=== PATIENT | male | born 1950 | race Caucasian/White ===

== ENCOUNTER 2017-05-12 14:17 | Observation (INO) ==
[2017-05-12 15:02] LABS: Bilirubin,Urine Moderate (Negative); Blood,Urine Large (Negative); Clarity,Urine Turbid (Clear); Color,Urine Red (Yellow); Glucose,Urine (UA) Normal (Normal); Ketones,Urine Trace mg/dL (Negative); Leukocyte Esterase,Urine Small (Negative); Nitrite,Urine Negative (Negative); PH,Urine 5.5 pH Units (5.0-8.0); Protein,Urine 100 mg/dL (Neg-Trace); Specific Gravity,Urine 1.019 (1.010-1.025); Urobilinogen,Urine Normal (Normal)
[2017-05-12 15:04] LABS: Bacteria,Urine None Seen per hpf (None-Few); Hyaline Casts,Urine None Seen per lpf (None-Few); RBC,Urine TNTC per hpf (0-3); Squamous Epithelial Cell,Urine Many per lpf (None-Few); WBC,Urine 15-30 per hpf (0-3)
[2017-05-12] MEDS ORDERED: Ketorolac 15 MG/ML VIAL IVP ONE (15:23)
[2017-05-12] MEDS ORDERED: 0.9 % Sodium Chloride 1,000 ML IVC ONE (15:23)
[2017-05-12] MEDS ORDERED: Ondansetron 4 MG/2 ML VIAL IVP ONE ×2 (15:24→17:57)
[2017-05-12 15:43] LABS: Basophils # 0.1 K/mcL (0.0-0.2); Basophils % 0.4 %; Eosinophils # 0.1 K/mcL (0.0-0.6); Eosinophils % 1.1 %; Hematocrit 45.7 % (37.5-50.1); Hemoglobin 15.2 g/dL (12.9-16.9); Immature Granulocytes % 0.4 % (0-4); Lymphocytes # 2.5 K/mcL (0.6-4.6); Lymphocytes % 21.2 %; Mean Corpuscular HGB Conc 33.3 g/dL (31.6-35.5); Mean Corpuscular Hemoglobin 28.7 pg (28.0-33.3); Mean Corpuscular Volume 86.2 fL (83.0-100.0); Mean Platelet Volume 11.4 fL (9.4-12.4); Monocytes # 0.8 K/mcL (0.0-1.3); Monocytes % 6.4 %; Neutrophils # 8.3 K/mcL (1.6-8.9); Nucleated Red Blood Cells 0.2 /100 WBC (0); Platelet Count 182 K/mcL (140-400); Red Cell Distribution Width 12.7 % (11.5-14.5); Segmented Neutrophils % 70.5 %
--- NOTE | 2017-05-12 16:37 | Emergency Department Note ---
Disposition Clinical Impression: Kidney stone on left side Disposition: Admitted As Inpatient Condition: Fair Referrals: Jim Smith MD [Primary Care Provider] - Time of Disposition: 16:55 Abdominal Pain HPI - General Chief Complaint: ED Abdominal Pain Stated Complaint: Kidney Stone Time Seen by Provider: 05/12/17 15:01 Source: patient Mode of arrival: ambulatory Limitations: no limitations Nursing Notes Reviewed: Yes Vital Signs Reviewed: Yes - History of Present Illness HPI Narrative: 67-year-old male presents to the emergency department with left flank pain. 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 Said the right kidney barely is functioning. Patient says that he was having left flank pain approximately a week ago he was seen by his urologist, Dr. Smith who states that he had a x-ray done there and they did notice a left -sided kidney stone thought they could pass on its own. They said the pain increased today where was unbearable was 10 out of 10 pain rating down into his left groin. He did take [place] for pain control said this did not help. Patient says that his urine also is very bright red. Patient otherwise having no complaints including painful urination, fever, chills, nausea, vomiting, headache, blurry vision, neck pain, back pain, chest pain, shortness of breath, abdominal pain, change in bowel movements, weakness. Pain Scale: 5 - Related Data Home Medications Medication Instructions Recorded Confirmed Alfuzosin HCl [Uroxatral] 10 mg PO DAILY 11/03/15 11/03/15 Aspirin 81 mg PO DAILY 11/03/15 11/03/15 Carvedilol 3.125 mg PO BID 11/03/15 11/03/15 Fluticasone Propionate Nasal 1 spr NS DAILY 11/03/15 11/03/15 [Flonase] Furosemide [Lasix] 40 mg PO DAILY 11/03/15 11/03/15 Glimepiride [Amaryl] 1 mg PO DAILY 11/03/15 11/03/15 Lactobacillus Acidophilus 1 each PO DAILY 11/03/15 11/03/15 [Acidophilus] Lipase/Protease/Amylase [Pancreaze 1 each PO TID 11/03/15 11/03/15 10,500 Unit Cap] OxyCODONE/APAP 5/325 [Percocet 1 each PO Q6HR PRN 11/03/15 11/03/15 5/325 MG] Pantoprazole Sodium [Protonix] 40 mg PO DAILY 11/03/15 11/03/15 Rivaroxaban [Xarelto] 15 mg PO QPM 11/03/15 11/03/15 Simvastatin [Zocor] 40 mg PO HS 11/03/15 11/03/15 Spironolactone [Aldactone] 25 mg PO BID 11/03/15 11/03/15 Previous Rx's Medication Instructions Recorded OxyCODONE/APAP 5/325 [Percocet 1 each PO Q6HR PRN #30 tablet 11/03/15 5/325 MG] Albuterol Sulfate [Albuterol 2 puff IH QID #1 inhaler 11/03/16 Inhaler] Benzonatate [Tessalon] 200 mg PO TID PRN #20 capsule 11/03/16 Doxycycline 100 mg PO BID #14 capsule 11/03/16 Allergies Allergy/AdvReac Type Severity Reaction Status Date / Time cephalexin [From Keflex] Allergy Hives Verified 11/03/16 11:39 Penicillins [PCN] Allergy Hives Verified 11/03/16 11:38 Sulfa (Sulfonamide Allergy Hives Verified 11/03/16 11:39 Antibiotics) Review of Systems: 10 point review of systems done and negative unless otherwise stated in the history of present illness. All systems ED: reviewed and negative except as stated. Review of Systems: As Per HPI Abdominal Pain PMH - Past Medical History Medical history: Reports: atrial fibrillation Psychiatric history: Reports: no psych history - Social History Smoking status: Never smoker Alcohol use: Reports: none Drug use: Reports: unknown Physical Exam - General Limitations: no limitations General appearance: alert, in no apparent distress - Head Head exam: atraumatic, normocephalic, normal inspection - Eye Eye exam: Present: normal appearance, PERRL, EOMI - ENT ENT exam: normal exam - Neck Neck exam: Present: normal inspection, full ROM, trachea midline - Chest Chest inspection: Present: normal inspection, symmetric chest wall rise - Respiratory Respiratory exam: Present: normal lung sounds bilaterally - Cardiovascular Cardiovascular exam: Present: regular rate, normal rhythm, normal heart sounds - Abdominal Exam Abdominal exam: Present: soft, Non-Tender. Absent: tenderness, distention, guarding, rebound, rigidity - Extremities Exam Extremities exam: Present: normal inspection, full ROM. Absent: tenderness, pedal edema - Back Exam Back exam: Present: normal inspection, full ROM, CVA tenderness (L). Absent: tenderness, CVA tenderness (R) - Neurological Exam Neurological exam: Present: alert, oriented X3 - Skin Skin exam: Present: warm, dry, intact, normal color Course Course Narrative: 67-year-old male presents to the emergency department complaining of left flank pain. He does have history of kidney stones. He has an atrophic right kidney Nicol the left kidney. Patient states that the pain is increased we will give Toradol and Zofran for pain control as well as IV fluids. We will get CT of his abdomen and pelvis without contrast to see the size of the stone. Order basic labs including CBC and BMP as well as urinalysis. Most likely disposition will be admission and consultation urology. - Consultations Consultation #1: Spoke with the on-call urologist Dr. Watson who agreed to come and see the patient and recommended admission to the hospital service and consultation with them. He had no further recommendations. Time: 16:45 Consultation #2: Spoke with the hospitalist Dr. Prado who agreed to admit the patient to their service and consult urology. He had no further recommendations. Time: 16:54 Vital Signs Temperature 98.2 F 05/12/17 14:31 Pulse Rate 107 05/12/17 14:31 Respiratory Rate 18 05/12/17 14:31 Blood Pressure 157/81 05/12/17 14:31 O2 Sat by Pulse Oximetry 98 05/12/17 14:31 Temperature 98.2 F 05/12/17 14:31 Pulse Rate 107 05/12/17 14:31 Respiratory Rate 18 05/12/17 14:31 Blood Pressure 157/81 05/12/17 14:31 O2 Sat by Pulse Oximetry 98 05/12/17 14:31 Oxygen Delivery Oxygen Delivery Room Air Abdominal Pain - MDM Narrative Medical decision making narrative: 67-year-old male presented emergency department with left-sided flank pain this was an obstructing kidney stone based on CT due to his right kidney nonfunctioning we felt that admission and urology consultation was warranted spoke with Dr. Grimm agreed to come and see the patient in the who did recommend admission. His mother most likely can take patient to surgery today. Urine did show blood in it otherwise there are no acute abnormalities. Patient's bladder was empty so there is worried about obstruction. Patient's pain is under control with the Toradol and nausea is under control with Zofran. Patient is admitted to the hospitalist service in stable condition. Abdomen/Pelvis CT 05/12/17 15:24 IMPRESSION: 1. 0.5 cm x 0.4 cm x 0.5 cm obstructing calculus in the proximal to mid left ureter, resulting in minimal left hydroureteronephrosis. The finding is likely acute given associated left perinephric and periureteral inflammatory stranding. 2. At least 2 calculi in the distal right ureter, measuring approximately 0.7 cm x 0.5 cm x 0.5 cm and 0.7 cm x 0.2 cm x 0.3 cm. There is new severe right hydronephrosis and mild to moderate right hydroureter, but chronic obstruction is suspected given moderate to severe right renal atrophy and lack of associated right perinephric or periureteral stranding. D/ / Laci Garcia MD / Laci Garcia MD Interpreting Provider: Laci Garcia MD - Medical Records Medical records reviewed: Yes I reviewed the patient's medical records. - Lab Data Lab results reviewed: Yes I reviewed the patient's lab results. Result diagrams: 05/12/17 15:32 Lab Results 05/12/17 05/12/17 05/12/17 Range/Units 14:41 15:32 15:32 WBC 11.8 H (4.3-11.1) K/mcL RBC 5.30 (4.19-5.50) M/mcL Hgb 15.2 (12.9-16.9) g/dL Hct 45.7 (37.5-50.1) % MCV 86.2 (83.0-100.0) fL MCH 28.7 (28.0-33.3) pg MCHC 33.3 (31.6-35.5) g/dL RDW 12.7 (11.5-14.5) % Plt Count 182 (140-400) K/mcL MPV 11.4 (9.4-12.4) fL Immature Gran % 0.4 (0-4) % Seg Neutrophils % 70.5 % Lymphocytes % 21.2 % Monocytes % 6.4 % Eosinophils % 1.1 % Basophils % 0.4 % Neutrophils # 8.3 (1.6-8.9) K/mcL Lymphocytes # 2.5 (0.6-4.6) K/mcL Monocytes # 0.8 (0.0-1.3) K/mcL Eosinophils # 0.1 (0.0-0.6) K/mcL Basophils # 0.1 (0.0-0.2) K/mcL Nucleated RBCs/100 WBC 0.2 H (0) /100 WBC Lactic Acid 1.7 (0.5-2.2) mmol/L Urine Color Red A (Yellow) Urine Clarity Turbid A (Clear) Urine pH 5.5 (5.0-8.0) pH Units Ur Specific [place] 1.019 (1.010-1.025) Urine Protein 100 H (Neg-Trace) mg/dL Urine Glucose (UA) Normal (Normal) mg/dL Urine Ketones Trace H (Negative) mg/dL Urine Blood Large H (Negative) Urine Nitrite Negative (Negative) Urine Bilirubin Moderate H (Negative) Urine Urobilinogen Normal (Normal) mg/dL Ur Leukocyte Esterase Small H (Negative) Urine Microscopic RBC TNTC H (0-3) per hpf Urine Microscopic WBC 15-30 H (0-3) per hpf Ur Squamous Epith Cells Many H (None-Few) per lpf Urine Bacteria None Seen (None-Few) per hpf Hyaline Casts None Seen (None-Few) per lpf Specimen Rejected 05/12/17 Range/Units 15:32 WBC (4.3-11.1) K/mcL RBC (4.19-5.50) M/mcL Hgb (12.9-16.9) g/dL Hct (37.5-50.1) % MCV (83.0-100.0) fL MCH (28.0-33.3) pg MCHC (31.6-35.5) g/dL RDW (11.5-14.5) % Plt Count (140-400) K/mcL MPV (9.4-12.4) fL Immature Gran % (0-4) % Seg Neutrophils % % Lymphocytes % % Monocytes % % Eosinophils % % Basophils % % Neutrophils # (1.6-8.9) K/mcL Lymphocytes # (0.6-4.6) K/mcL Monocytes # (0.0-1.3) K/mcL Eosinophils # (0.0-0.6) K/mcL Basophils # (0.0-0.2) K/mcL Nucleated RBCs/100 WBC (0) /100 WBC Lactic Acid (0.5-2.2) mmol/L Urine Color (Yellow) Urine Clarity (Clear) Urine pH (5.0-8.0) pH Units Ur Specific [place] (1.010-1.025) Urine Protein (Neg-Trace) mg/dL Urine Glucose (UA) (Normal) mg/dL Urine Ketones (Negative) mg/dL Urine Blood (Negative) Urine Nitrite (Negative) Urine Bilirubin (Negative) Urine Urobilinogen (Normal) mg/dL Ur Leukocyte Esterase (Negative) Urine Microscopic RBC (0-3) per hpf Urine Microscopic WBC (0-3) per hpf Ur Squamous Epith Cells (None-Few) per lpf Urine Bacteria (None-Few) per hpf Hyaline Casts (None-Few) per lpf Specimen Rejected Hemolyzed - Radiology Data Radiology results reviewed: Yes I reviewed the patient's radiology results.
--- NOTE | 2017-05-12 16:56 | Urology - Consult Note ---
Date of Encounter: 05/12/17 Time of Encounter: 16:54 - Assessment and Plan (1) Left ureteral stone Current Visit: Yes Status: Acute Assessment and plan: Patient was solitary left kidney and obstructing stone in the left side. We will plan on taking the patient urgently to the operating room for cystoscopy and left ureteral stent placement. Patient's BMP pending at this time. (2) Hydronephrosis Current Visit: Yes Status: Acute Assessment and plan: Secondary to obstructing stone. We will plan on stenting patient in the operating room today. Qualifiers: Hydronephrosis type: with ureteral calculous obstruction Qualified Code(s) : N13.2 - Hydronephrosis with renal and ureteral calculous obstruction Urology CN:HPI Consult date: 05/12/17 Reason for consult Urology: Hydronephrosis Requesting physician: Horace Prado History of present illness: Tutu is a 67-year-old male with a history of known problems of kidney stones. Patient has a nonfunctioning right kidney. He presented to the emergency department today secondary to severe left-sided flank pain. Patient also with minimal urine output today. He was found on CT scan to have a left proximal ureteral 7 mm stone with some proximal hydronephrosis. Laboratory values are pending at this time. No fevers. Positive nausea without vomiting. Patient states he has not felt like eating. Past Med Surg Social Fam HX - Past Medical History Medical history: atrial fibrillation Psychiatric history: no psych history - Past Surgical History Surgical History: colectomy, orthopedic, other - Social History Smoking Status: Never smoker Smokeless Tobacco Status: No Alcohol use: none Drug use: unknown Medications and Allergies Alfuzosin HCl [Uroxatral] 10 mg PO DAILY 11/03/15 [History] Aspirin 81 mg PO DAILY 11/03/15 [History] Carvedilol 3.125 mg PO BID 11/03/15 [History] Fluticasone Propionate Nasal [Flonase] 1 spr NS DAILY 11/03/15 [History] Furosemide [Lasix] 40 mg PO DAILY 11/03/15 [History] Glimepiride [Amaryl] 1 mg PO DAILY 11/03/15 [History] Lactobacillus Acidophilus [Acidophilus] 1 each PO DAILY 11/03/15 [History] Lipase/Protease/Amylase [Pancrevilma Dr 10,500 Unit Cap] 1 each PO TID 11/03/15 [ History] OxyCODONE/APAP 5/325 [Percocet 5/325 MG] 1 each PO Q6HR PRN 11/03/15 [History] OxyCODONE/APAP 5/325 [Percocet 5/325 MG] 1 each PO Q6HR PRN #30 tablet 11/03/15 [Rx] Pantoprazole Sodium [Protonix] 40 mg PO DAILY 11/03/15 [History] Rivaroxaban [Xarelto] 15 mg PO QPM 11/03/15 [History] Simvastatin [Zocor] 40 mg PO HS 11/03/15 [History] Spironolactone [Aldactone] 25 mg PO BID 11/03/15 [History] Albuterol Sulfate [Albuterol Inhaler] 2 puff IH QID #1 inhaler 11/03/16 [Rx] Benzonatate [Tessalon] 200 mg PO TID PRN #20 capsule 11/03/16 [Rx] Doxycycline 100 mg PO BID #14 capsule 11/03/16 [Rx] 3 Allergy/AdvReac Type Severity Reaction Status Date / Time cephalexin [From Keflex] Allergy Hives Verified 11/03/16 11:39 Penicillins [PCN] Allergy Hives Verified 11/03/16 11:38 Sulfa (Sulfonamide Allergy Hives Verified 11/03/16 11:39 Antibiotics) Review of Systems - Constitutional no chills, no fever(s) - EENT Nose, mouth and throat: no dizziness, no throat swelling - Cardiovascular no chest pain, no dyspnea - Respiratory no cough, no dyspnea - Gastrointestinal abdominal pain - Genitourinary as per HPI - Musculoskeletal back pain, no muscle weakness, no numbness - Integumentary no erythema, no rash - Neurological no confusion, no weakness Exam Initial Vital Signs Temp Pulse Resp BP Pulse Ox 98.2 F 107 18 157/81 98 05/12/17 14:31 05/12/17 14:31 05/12/17 14:31 05/12/17 14:31 05/12/17 14:31 General/Neuological: alert and oriented x 3 Eyes: normal pupils, non-icteric Neck: no lymphadenopathy noted, supple to touch ABD: Morbidly obese soft, nontender, no masses palpated, good bowel sounds Back: no pain on percussion bilaterally Skin: no rashes noted Musculoskeletal: normal gait, FROMx4 - General physical appearance Present: well developed, well nourished Urology Results - Labs 05/12/17 15:32 Abnormal lab results WBC 11.8 K/mcL (4.3-11.1) H 05/12/17 15:32 Nucleated RBCs/100 WBC 0.2 /100 WBC (0) H 05/12/17 15:32 Urine Color Red (Yellow) A 05/12/17 14:41 Urine Clarity Turbid (Clear) A 05/12/17 14:41 Urine Protein 100 mg/dL (Neg-Trace) H 05/12/17 14:41 Urine Ketones Trace mg/dL (Negative) H 05/12/17 14:41 Urine Blood Large (Negative) H 05/12/17 14:41 Urine Bilirubin Moderate (Negative) H 05/12/17 14:41 Ur Leukocyte Esterase Small (Negative) H 05/12/17 14:41 Urine Microscopic RBC TNTC per hpf (0-3) H 05/12/17 14:41 Urine Microscopic WBC 15-30 per hpf (0-3) H 05/12/17 14:41 Ur Squamous Epith Cells Many per lpf (None-Few) H 05/12/17 14:41 All other labs normal. - Imaging CT scan - abdomen: image reviewed CT scan - pelvis: image reviewed Consult Discharge Plan - Plan Referrals: Jim Smith MD [Primary Care Provider] -
--- NOTE | 2017-05-12 16:56 | Anesthesia Evaluation PreOp ---
Date of Encounter: 05/12/17 Time of Encounter: 16:54 - Past History Planned Operation: Cystoscopy Cardiac History: CHF, HTN, Hyperlipidemia, Arrhythmia (paroxysmal A-Fib) Pulmonary History: Former smoker (quit 11/2012, smoked for 40 years), Asthma [employer] History: Denies Any Significant HX Other Medical History: Renal (kidney stones, has one functioning kidney (left)) , Diabetes Type II, GERD Anesthesia History: No Prior Anesthetic Complications, Past Anesthesia Alcohol Use: none Drug use: unknown Medications and Allergies Aspirin 81 mg PO DAILY 11/03/15 [History] Carvedilol 3.125 mg PO BID 11/03/15 [History] Fluticasone Propionate Nasal [Flonase] 1 spr NS DAILY 11/03/15 [History] Furosemide [Lasix] 40 mg PO DAILY 11/03/15 [History] Glimepiride [Amaryl] 1 mg PO DAILY 11/03/15 [History] OxyCODONE/APAP 5/325 [Percocet 5/325 MG] 1 each PO Q6HR PRN 11/03/15 [History] Pantoprazole Sodium [Protonix] 40 mg PO DAILY 11/03/15 [History] Rivaroxaban [Xarelto] 15 mg PO QPM 11/03/15 [History] Simvastatin [Zocor] 40 mg PO HS 11/03/15 [History] Spironolactone [Aldactone] 25 mg PO BID 11/03/15 [History] Betamethasone Bernarda 0.1% Crm [Valisone 0.1%] 1 appl TP DAILY 05/12/17 [History] Mupirocin [Bactroban Oint] 1 appl TP TID 05/12/17 [History] Tamsulosin [Flomax] 0.4 mg PO DAILY 05/12/17 [History] Triamcinolone Acetonide 1 appl TP BID 05/12/17 [History] 3 Allergy/AdvReac Type Severity Reaction Status Date / Time cephalexin [From Keflex] Allergy Hives Verified 11/03/16 11:39 Penicillins [PCN] Allergy Hives Verified 11/03/16 11:38 Sulfa (Sulfonamide Allergy Hives Verified 11/03/16 11:39 Antibiotics) - Meds/Allergy Pre-op Review Medications Reviewed: Yes Allergies Reviewed: Yes Beta Blockers on Current Med List: Yes If Beta Blockers taken, Date/Time (Last Dose taken): 05/11/2017 at 1900 Anesthesia Results - Labs 05/12/17 15:32 05/12/17 16:50 - Imaging EKG: report reviewed (10/25/2015 SINUS RHYTHM WITH FIRST DEGREE AV BLOCK MODERATE VOLTAGE CRITERIA FOR LVH, CONSIDER NORMAL VARIANT) Additional studies: 07/21/2014 Echo Impressions: LVEF 45-50%. There is evidence of mild diastolic dysfunction of the left ventricle. Moderately enlarged left atrial size. Normal right atrial size. Normal right ventricular size and function. No significant valvular dysfunction. No significant TR gradient. IVC not well visualized for assessment of pulmonary hypertension. 12/24/2012 CORONARY ANGIOGRAPHY Indications: Unstable Angina, Chest Pain Impressions: Coronary arteries are angiographically normal. Recommendations: Optimal medical therapy of patient's disease. Aggressive risk factor modification. Anesthesia Exam Vital Signs/O2 Sat, Most Current Temp Pulse Resp BP Pulse Ox 98.2 F 107 18 157/81 98 05/12/17 14:31 05/12/17 14:31 05/12/17 14:31 05/12/17 14:31 05/12/17 14:31 Height: 5'8''/1.73 m Weight: 346 lbs/157 kg NPO (# of Hours): 8 Pain Scale: 6 Pain Scale Used: Numeric (1 - 10) - HEENT Pupil (Motor): EOMI Mallampati: III Teeth: Missing, Poor dentition Oral Opening: Greater than 3 - [employer] LOC: Oriented [employer] Motor: Normal RUE, Normal LUE, Normal RLE, Normal LLE, Normal Face [employer] Sensory: Normal: RUE, LUE, Face, Deficit: RLE, LLE - Cardiac Rhythm: Regular Murmur: None - Pulmonary Breath Sounds: bilateral Clear Respiratory Effort: Symmetrical Anesthesia Assess/Plan ASA Score: 3 Modified Dena Scale for Level of Consciousness: Cooperative, oriented, and tranquil Anesthetic Plan: General Monitoring Plan: Standard Monitors Recovery Plan: PACU
[2017-05-12 17:15] LABS: Albumin 3.8 g/dL (3.5-5.7); Albumin/Globulin Ratio 1.2 (1.1-2.2); Bilirubin,Direct 0.2 mg/dL (0.0-0.2); Bilirubin,Indirect 1.2 mg/dL (0.0-1.2); Bilirubin,Total 1.4 mg/dL (0.3-1.0); Calcium 8.9 mg/dL (8.6-10.3); Globulin 3.1 g/dL (2.4-3.5); Total Protein 6.9 g/dL (6.4-8.9)
[2017-05-12] MEDS ORDERED: *HR* FentaNYL (PF) 100 MCG/2 ML VIAL ONE (17:24)
[2017-05-12] MEDS ORDERED: Lidocaine -MPF 2% 2 ML VIAL ONE (17:24)
[2017-05-12] MEDS ORDERED: *HR* Propofol 200 MG/20 ML VIAL IVP ONE ×2 (17:24→17:36)
[2017-05-12] MEDS ORDERED: Clindamycin 900 MG/50 ML 900 MG/50 ML IV.SOLN IVPB ONE (17:27)
[2017-05-12] MEDS ORDERED: Dexamethasone 4 MG/ML VIAL ONE (17:54)
[2017-05-12] MEDS ORDERED: *HR* Labetalol 100 MG/20 ML MDV IVP PRN (17:57)
[2017-05-12] MEDS ORDERED: MORPHINE SUL Oral CONC 10 MG/0.5 ML ORAL.SYG SL PRN (17:57)
--- NOTE | 2017-05-12 18:01 | Operative Note ---
Date of procedure: 05/12/17 Pre-op diagnosis: left ureteral stone Post-op diagnosis: same Procedure: Cystoscopy and left 6 x 26 cm ureteral stent placement Anesthesia: GETA Surgeon: Ken Watson Was there an financial assistant present: No Estimated blood loss (cc): 0 Specimen: None Condition: stable Disposition: PACU Procedure in Detail: The patient was prepped and draped in normal sterile fashion after being placed in the lithotomy position. I then inserted the cystoscope into the patient's bladder. I then cannulated the left ureter using a sensor wire. This was advanced to the kidney using fluoroscopy. I then placed a 6 x 26 and meter ureteral stent with good curl seen in the kidney and the bladder. The bladder was drained and the procedure was ended.
--- NOTE | 2017-05-12 18:50 | Anesthesia Evaluation Post Op ---
Date of Encounter: 05/12/17 Time of Encounter: 18:49 - Vital Signs Vital Signs: Vital Signs/O2 Sat, Most Current Temp Pulse Resp BP Pulse Ox 97.5 F L 76 12 136/94 94 05/12/17 18:33 05/12/17 18:33 05/12/17 18:33 05/12/17 18:33 05/12/17 18:33 - Lungs Lungs: Clear Ascult./Percussion - Airway Airway: Non-obstructed - Cardiovascular Regular Rate - Mental Status Mental Status: Alert & Oriented, Answers Appropriately - Pain Pain Scale: 2 Pain Scale used: Numeric (1 - 10) - Nausea Vomiting Nausea Vomiting: Not Present - Hydration Hydration: Ice chips, Has not voided - Discharge PostOp Status: Transfer Patient to floor
[2017-05-12] MEDS ORDERED: *HR* OxyCODONE/APAP 5/325 TABLET PO PRN (19:34)
--- NOTE | 2017-05-12 19:43 | Internal Med History&Physical ---
Date of Encounter: 05/12/17 Time of Encounter: 19:35 Assessment and Plan (1) Left ureteral stone Current visit: Yes Status: Acute Continue home oral medications and check AccuChecks qACHS (2) Atrial fibrillation Current visit: No Status: Chronic Rate controlled with BB Continue Xarelto I spoke with Urology and it's safe to resume now Qualifiers: Atrial fibrillation type: unspecified Qualified Code(s): I48.91 - Unspecified atrial fibrillation (3) Diabetes mellitus Current visit: Yes Status: Acute DM-@ Continue home oral antihyperglycemics and check accuchecks qACHS Qualifiers: Diabetes mellitus type: type 2 Diabetes mellitus assisted insulin use: without assisted use Diabetes mellitus complication status: with other specified complication Qualified Code(s): E11.69 - Type 2 diabetes mellitus with other specified complication Internal Medicine - H&P: HPI Chief complaint: left flank pain Admitted From: Emergency Dept Plans for Post Hospital Care: Home History of present illness: The patient is a 67 yr old man with a history of multiple kidney stones and a solitary kidney who presented in the ER with left flank pain which has been going on for approximately one week. He was seen by his urologist, Dr. Smith who did an Xray which noted a left-sided kidney stone which he thought could pass on its own. However, the pain was more intense today and his urine output was decreased and he had hematuria prompting him to come to the ER. Because of his solitary kidney and hydronephrosis noted on imaging urology was called and Dr. Watson saw the patient in the ER and urgently performed a cystoscopy with left ureteral stent placement. He tolerated the procedure well and his pain is controlled with Morphine and [place]. He's hemodynamically stable. Past Med Surg Social Fam HX - Past Medical History Medical history: atrial fibrillation Psychiatric history: no psych history - Past Surgical History Surgical History: colectomy, orthopedic, other - Social History Smoking Status: Never smoker Smokeless Tobacco Status: No Alcohol use: none Drug use: unknown Internal Medicine - H&P: Meds Aspirin 81 mg PO DAILY 11/03/15 [History] Carvedilol 3.125 mg PO BID 11/03/15 [History] Fluticasone Propionate Nasal [Flonase] 2 spray NS DAILY 11/03/15 [History] Furosemide [Lasix] 40 mg PO DAILY 11/03/15 [History] Glimepiride [Amaryl] 2 mg PO BID 11/03/15 [History] OxyCODONE/APAP 5/325 [Percocet 5/325 MG] 1 each PO Q6HR PRN 11/03/15 [History] Pantoprazole Sodium [Protonix] 40 mg PO DAILY 11/03/15 [History] Rivaroxaban [Xarelto] 15 mg PO QPM 11/03/15 [History] Simvastatin [Zocor] 40 mg PO HS 11/03/15 [History] Spironolactone [Aldactone] 25 mg PO BID 11/03/15 [History] Betamethasone Bernarda 0.1% Crm [Valisone 0.1%] 1 appl TP DAILY 05/12/17 [History] Mupirocin [Bactroban Oint] 1 appl TP TID 05/12/17 [History] Tamsulosin [Flomax] 0.4 mg PO DAILY 05/12/17 [History] Triamcinolone Acetonide 1 appl TP BID 05/12/17 [History] 3 Allergy/AdvReac Type Severity Reaction Status Date / Time cephalexin [From Keflex] Allergy Hives Verified 11/03/16 11:39 Penicillins [PCN] Allergy Hives Verified 11/03/16 11:38 Sulfa (Sulfonamide Allergy Hives Verified 11/03/16 11:39 Antibiotics) All Systems PM: A 10-system review of systems was performed and is negative for pertinent findings except as documented above in the HPI. - Constitutional Constitutional: chills, no fever(s), no night sweats - EENT Eyes: no change in vision, no discharge, no pain, no photophobia Ears: no ear discharge, no ear pain, no tinnitus Nose, mouth and throat: no bleeding gums, no dry mouth, no dysphagia, no nasal discharge, no nasal obstruction, no neck pain, no sore throat - Cardiovascular Cardiovascular ROS IM: no chest pain, no diaphoresis, no dyspnea, no lightheadedness, no palpitations, no syncope - Respiratory Respiratory: no cough, no dyspnea, no wheezing, no excessive phlegm production - Gastrointestinal Gastrointestinal: no abdominal pain, no diarrhea, no hematemesis, no hematochezia, no melena, no nausea, no vomiting - Genitourinary Genitourinary ROS male: as per HPI, difficulty urinating, hematuria - Musculoskeletal Musculoskeletal ROS IM: back pain, no numbness, no tingling - Integumentary Integumentary IM: no rash, no unusual bruising - Neurological Neurological ROS: no confusion, no convulsions, no focal weakness, no numbness, no tingling, no tremor(s) - Psychiatric Psychiatric: no anhedonia, no auditory hallucinations, no hallucinations, no panic attacks - Hematologic/Lymphatic Hematologic/Lymphatic: no easy bruising - Constitutional Vitals: Temp Pulse Resp BP Pulse Ox 98.0 F 78 19 142/61 94 05/12/17 19:13 05/12/17 19:13 05/12/17 19:13 05/12/17 19:13 05/12/17 19:13 General appearance: Present: mild distress, A&O X 3 - Head Head exam: Present: atraumatic, normocephalic - ENT ENT exam: Present: mucous membranes moist - Neck Neck exam general surgery: Present: supple, trachea midline. Absent: tenderness , thyromegaly - Respiratory Respiratory exam: Present: CTAB. Absent: chest wall tenderness, rales, rhonchi , stridor, wheezes - Cardiovascular Cardiovascular exam: Present: RRR, +S1, +S2 - GI/Abdominal GI/Abdominal exam: Present: normal bowel sounds. Absent: distended, guarding, rigid - Neurological Exam Neurological exam: Present: CN II-XII intact. Absent: no focal deficits, facial droop, speech deficit - Psychiatric Psychiatric exam: Present: normal affect, normal mood Internal Med - H&P Results - Labs CBC & Chem 7: 05/12/17 15:32 05/12/17 16:50 - Impressions ITS Impressions KUB X-Ray 05/12/17 17:45 IMPRESSION: Intraprocedural fluoroscopic spot images as above. See separate procedure report for more information. D/ / Onel Lopez MD / Onel Lopez MD Interpreting Provider: Onel Lopez MD
[2017-05-12] MEDS ORDERED: Naloxone 0.4 MG/ML INJ IVP PRN (19:49)
[2017-05-12] MEDS ORDERED: *HR* Rivaroxaban 15 MG TABLET PO SCH ×2 (20:00→20:30)
[2017-05-12] MEDS ORDERED: Ketorolac 15 MG/ML VIAL IVP PRN (20:24)
[2017-05-12] MEDS ORDERED: *HR* HYDROcodone/Acet 7.5/325 mg TABLET PO PRN (20:25)
[2017-05-12] MEDS ORDERED: *HR* Promethazine 25 MG/ML VIAL IVP PRN (20:27)
[2017-05-12] MEDS ORDERED: 0.9 % Sodium Chloride 1,000 ML IVC SCH (20:30)
[2017-05-12] MEDS ORDERED: NON-FORMULARY MEDICATION 1 EACH EACH (Carvedilol [Carvedilol] 3.125 MG) PO SCH (21:00)
[2017-05-12] MEDS ORDERED: GLIMEPIRIDE 2 MG PO SCH (21:00)
[2017-05-12] MEDS ORDERED: Spironolactone 25 MG TABLET PO SCH (21:00)
[2017-05-12] MEDS: 0.9 % Sodium Chloride 1,000 ML IVC SCH (22:09)
[2017-05-12] MEDS: *HR* HYDROcodone/Acet 5/325 mg TABLET PO PRN (22:18)
[2017-05-12] MEDS: Spironolactone 25 MG TABLET PO SCH (22:19)
[2017-05-12] MEDS: *HR* Glimepiride 2 MG TABLET PO SCH (22:19)
[2017-05-12] MEDS: *HR* Rivaroxaban 15 MG TABLET PO SCH (22:19)
[2017-05-13] MEDS: *HR* OxyCODONE Immed Rel 5 MG TABLET PO PRN ×3 (01:22→20:15)
[2017-05-13 04:47] LABS: Basophils % 0.2 %; Hemoglobin 14.6 g/dL (12.9-16.9); Immature Granulocytes % 0.6 % (0-4); Lymphocytes # 1.4 K/mcL (0.6-4.6); Lymphocytes % 16.4 %; Mean Corpuscular HGB Conc 31.7 g/dL (31.6-35.5); Mean Corpuscular Hemoglobin 27.9 pg (28.0-33.3); Monocytes # 0.3 K/mcL (0.0-1.3); Monocytes % 3.3 %; Platelet Count 169 K/mcL (140-400); Red Blood Count 5.23 M/mcL (4.19-5.50); Red Cell Distribution Width 12.6 % (11.5-14.5); Segmented Neutrophils % 79.5 %
[2017-05-13 05:12] LABS: Calcium 8.9 mg/dL (8.6-10.3); Potassium 5.2 mEq/L (3.5-5.1)
[2017-05-13] MEDS: 0.9 % Sodium Chloride 1,000 ML IVC SCH ×2 (06:10→20:14)
[2017-05-13] MEDS: *HR* HYDROcodone/Acet 5/325 mg TABLET PO PRN ×2 (06:29→15:02)
--- NOTE | 2017-05-13 07:07 | Urology Progress Note ---
Date of Encounter: 05/13/17 Time of Encounter: 07:05 - Assessment and Plan (1) Left ureteral stone Current Visit: Yes Status: Acute Assessment and plan: Status post left ureteral stent. Hematuria expected until stent is removed. Patient's serum creatinine is still slightly elevated and do not recommend to start Pyridium at this time. I will plan on scheduling the patient for left ureteroscopic stone extraction with either or Dr. Smith in the next 2-3 weeks. Patient will receive a phone call from our office regarding the surgery scheduled date. (2) Hydronephrosis Current Visit: Yes Status: Acute Qualifiers: Hydronephrosis type: with ureteral calculous obstruction Qualified Code(s) : N13.2 - Hydronephrosis with renal and ureteral calculous obstruction Progress Note Narrative: Postoperative day 1 from cystoscopy and left ureteral stent placement. Patient feels better. Serum creatinine slightly improved. Patient with some urgency. Patient also with some gross hematuria which is expected with a stent Objective Initial Vital Signs Temp Pulse Resp BP Pulse Ox 98.2 F 107 18 157/81 98 05/12/17 14:31 05/12/17 14:31 05/12/17 14:31 05/12/17 14:31 05/12/17 14:31 - General physical appearance Present: well developed, well nourished - Respiratory Present: normal expansion, normal respiratory effort - Abdomen Present: soft (Morbidly obese). Absent: tender - Integumentary Present: no rash - Musculoskeletal Present: normal posture - Labs 05/13/17 04:27 05/13/17 04:27 Diabetes panel 05/13/17 Range/Units 04:27 Sodium 132 L (136-145) mEq/L Potassium 5.2 H (3.5-5.1) mEq/L Chloride 102 (98-107) mEq/L Carbon Dioxide 22 L (23-29) mEq/L BUN 26 H (8-23) mg/dL Creatinine 1.49 H (0.70-1.30) mg/dL Glucose 367 H (70-105) mg/dL Calcium 8.9 (8.6-10.3) mg/dL Calcium panel 05/13/17 Range/Units 04:27 Calcium 8.9 (8.6-10.3) mg/dL Pituitary panel 05/13/17 Range/Units 04:27 Sodium 132 L (136-145) mEq/L Potassium 5.2 H (3.5-5.1) mEq/L Chloride 102 (98-107) mEq/L Carbon Dioxide 22 L (23-29) mEq/L BUN 26 H (8-23) mg/dL Creatinine 1.49 H (0.70-1.30) mg/dL Glucose 367 H (70-105) mg/dL Calcium 8.9 (8.6-10.3) mg/dL Adrenal panel 05/13/17 Range/Units 04:27 Sodium 132 L (136-145) mEq/L Potassium 5.2 H (3.5-5.1) mEq/L Chloride 102 (98-107) mEq/L Carbon Dioxide 22 L (23-29) mEq/L BUN 26 H (8-23) mg/dL Creatinine 1.49 H (0.70-1.30) mg/dL Glucose 367 H (70-105) mg/dL Calcium 8.9 (8.6-10.3) mg/dL Consult Discharge Plan - Plan Referrals: Jim Smith MD [Primary Care Provider] -
[2017-05-13] MEDS: Aspirin 81 MG TAB.CHEW PO SCH (08:07)
[2017-05-13] MEDS: Spironolactone 25 MG TABLET PO SCH (08:07)
[2017-05-13] MEDS: *HR* Glimepiride 2 MG TABLET PO SCH (08:07)
[2017-05-13] MEDS: Fluticasone Propionate Nasal 50 MCG/SPRAY BOTTLE NS SCH (08:08)
[2017-05-13] MEDS ORDERED: Dextrose Gel 15 GM/37.5 ML TUBE PO PRN ×2 (08:36)
[2017-05-13] MEDS ORDERED: D5% in Water 1,000 ML IVC PRN (08:36)
[2017-05-13] MEDS ORDERED: *HR* Dextrose 50 % in Water (Syg) 50 ML SYRINGE IVP PRN (08:36)
[2017-05-13] MEDS ORDERED: Fluticasone Propionate Nasal 50 MCG/SPRAY BOTTLE NS SCH (09:00)
[2017-05-13] MEDS ORDERED: Furosemide 40 MG TABLET PO SCH ×2 (09:00)
[2017-05-13] MEDS ORDERED: Aspirin 81 MG TAB.CHEW PO SCH (09:00)
[2017-05-13] MEDS ORDERED: NON-FORMULARY MEDICATION 1 EACH EACH (Pantoprazole Sodium [Protonix] 40 MG) PO SCH (09:00)
[2017-05-13] MEDS: Insulin LISPRO 300 UNITS/3 ML VIAL SQ SCH ×2 (11:40→17:11)
--- NOTE | 2017-05-13 13:42 | Discharge Summary ---
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 Tong is a 67 year old male Mild hypokalemia: Given 30 mg Kayexalate and will hold Spironolactone temporarily. Continue Lasix. Recommend repeat BMP at OP f/u appointment - Time Spent with Patient Total time spent providing and/or coordinating discharge services: - Discharge Medications Home Medications: Aspirin 81 mg PO DAILY 11/03/15 [History] Carvedilol 3.125 mg PO BID 11/03/15 [History] Fluticasone Propionate Nasal [Flonase] 2 spray NS DAILY 11/03/15 [History] Furosemide [Lasix] 40 mg PO DAILY 11/03/15 [History] Glimepiride [Amaryl] 2 mg PO BID 11/03/15 [History] OxyCODONE/APAP 5/325 [Percocet 5/325 MG] 1 each PO Q6HR PRN 11/03/15 [History] Pantoprazole Sodium [Protonix] 40 mg PO DAILY 11/03/15 [History] Rivaroxaban [Xarelto] 15 mg PO QPM 11/03/15 [History] Simvastatin [Zocor] 40 mg PO HS 11/03/15 [History] Spironolactone [Aldactone] 25 mg PO BID 11/03/15 [History] Betamethasone Bernarda 0.1% Crm [Valisone 0.1%] 1 appl TP DAILY 05/12/17 [History] Mupirocin [Bactroban Oint] 1 appl TP TID 05/12/17 [History] Tamsulosin [Flomax] 0.4 mg PO DAILY 05/12/17 [History] Triamcinolone Acetonide 1 appl TP BID 05/12/17 [History] Allergies/Adverse Reactions: 3 Allergy/AdvReac Type Severity Reaction Status Date / Time cephalexin [From Keflex] Allergy Hives Verified 11/03/16 11:39 Penicillins [PCN] Allergy Hives Verified 11/03/16 11:38 Sulfa (Sulfonamide Allergy Hives Verified 11/03/16 11:39 Antibiotics) Date of admission: 05/12/17 17:15 Primary care physician: Jim Smith MD - Constitutional Vitals: Temp Pulse Resp BP Pulse Ox 98.2 F 77 18 119/74 95 05/13/17 11:04 05/13/17 11:04 05/13/17 11:04 05/13/17 11:04 05/13/17 11:04 General appearance: Present: mild distress, A&O X 3 - Patient Status Condition: Fair - Discharge Instructions Instructions: Kidney Stones (DC) Follow Up With: Jim Smith MD [Primary Care Provider] -
--- NOTE | 2017-05-13 13:51 | Internal Med Progress Note ---
Date of Encounter: 05/13/17 Time of Encounter: 13:32 - Assessment and plan (1) Left ureteral stone Current Visit: Yes Status: Acute (2) Atrial fibrillation Current Visit: No Status: Chronic Qualifiers: Atrial fibrillation type: unspecified Qualified Code(s): I48.91 - Unspecified atrial fibrillation (3) Diabetes mellitus Current Visit: Yes Status: Acute Qualifiers: Diabetes mellitus type: type 2 Diabetes mellitus shelter insulin use: without terminal press operator use Diabetes mellitus complication status: with other specified complication Qualified Code(s): E11.69 - Type 2 diabetes mellitus with other specified complication - Subjective Interval history: Interval History: Pain improved but still 7/10 when he moves Gross hematuria Okayed to d/c per urology earlier in day but hematuria worsened and held another day Left ureteral calculus: S/p stent placement Continue [place] for pain Contiue phenergan for N/V Urology okay to d/c home and f/u as OP UA neg Leukocytosis likely reactive Hematuria became worse throughout day and d/c put on hold Xarelto temporarily held Recheck CBC in am (2) MINH in the setting of one functional kidney Good UO Continue to monitor renal function Hold nephrotoxic medications (3) Mild hyperkalemia: Associated with mild MINH Hold Spironolactone Kayexalate given Recheck in am (4) Atrial fibrillation Rate controlled with BB Xarelto held because of worsening hematuria (4) Diabetes mellitus DM-2 Continue home oral antihyperglycemics Accuchecks qACHS SSI qACHS added due to high BG levels - Constitutional Vitals: Temp Pulse Resp BP Pulse Ox 98.2 F 77 18 119/74 95 05/13/17 11:04 05/13/17 11:04 05/13/17 11:04 05/13/17 11:04 05/13/17 11:04 General appearance: Present: mild distress, A&O X 3 - Head Head exam: Present: atraumatic, normocephalic - Eye Eye exam: Present: EOMI, PERRL, conjuntiva pink, sclera anicteric Pupils: Present: PERRL - Neck Neck exam general surgery: Present: supple, trachea midline. Absent: lymphadenopathy - Respiratory Respiratory exam: Present: CTAB. Absent: accessory muscle use, rales, rhonchi, wheezes - Cardiovascular Cardiovascular exam: Present: RRR, +S1, +S2. Absent: diastolic murmur, gallop, rubs, systolic murmur - GI/Abdominal GI/Abdominal exam: Present: normal bowel sounds, soft, no peritoneal signs. Absent: distended, guarding, tenderness - Extremities Exam Extremities exam: Present: warm. Absent: calf tenderness, cyanotic, pedal edema - Neurological Exam Neurological exam: Present: CN II-XII intact, oriented X3, no focal deficits. Absent: pronater drift, facial droop, speech deficit - Skin Skin exam: Present: dry, intact, warm Internal Medicine: Result - Labs CBC & Chem 7: 05/13/17 04:27 05/13/17 04:27 Labs: Short CBC 05/13/17 Range/Units 04:27 WBC 8.8 (4.3-11.1) K/mcL Hgb 14.6 (12.9-16.9) g/dL Hct 46.0 (37.5-50.1) % Plt Count 169 (140-400) K/mcL Neutrophils # 7.0 (1.6-8.9) K/mcL BMP 05/13/17 04:27 Sodium 132 L Potassium 5.2 H Chloride 102 Carbon Dioxide 22 L BUN 26 H Creatinine 1.49 H Glucose 367 H Calcium 8.9 - Impressions Impressions KUB X-Ray 05/12/17 17:45 IMPRESSION: Intraprocedural fluoroscopic spot images as above. See separate procedure report for more information. D/ / Onel Lopez MD / Onel Lopez MD Interpreting Provider: Onel Lopez MD Consult Discharge Plan - Plan Instructions: Kidney Stones (DC) Referrals: Jim Smith MD [Primary Care Provider] -
[2017-05-13] MEDS ORDERED: Insulin LISPRO 300 UNITS/3 ML VIAL SQ SCH (21:00)
[2017-05-14] MEDS: *HR* OxyCODONE Immed Rel 5 MG TABLET PO PRN ×3 (03:19→16:28)
[2017-05-14 05:02] LABS: Basophils # 0.1 K/mcL (0.0-0.2); Basophils % 0.5 %; Eosinophils % 0.3 %; Hematocrit 44.8 % (37.5-50.1); Hemoglobin 14.1 g/dL (12.9-16.9); Immature Granulocytes % 0.4 % (0-4); Lymphocytes # 1.9 K/mcL (0.6-4.6); Lymphocytes % 18.9 %; Mean Corpuscular HGB Conc 31.5 g/dL (31.6-35.5); Mean Corpuscular Hemoglobin 27.9 pg (28.0-33.3); Mean Corpuscular Volume 88.7 fL (83.0-100.0); Monocytes # 0.9 K/mcL (0.0-1.3); Monocytes % 8.9 %; Neutrophils # 7.3 K/mcL (1.6-8.9); Platelet Count 171 K/mcL (140-400); Red Blood Count 5.05 M/mcL (4.19-5.50)
[2017-05-14] MEDS: 0.9 % Sodium Chloride 1,000 ML IVC SCH ×2 (05:45→12:51)
[2017-05-14] MEDS: Fluticasone Propionate Nasal 50 MCG/SPRAY BOTTLE NS SCH (10:03)
[2017-05-14] MEDS: Insulin LISPRO 300 UNITS/3 ML VIAL SQ SCH ×2 (10:03→11:25)
[2017-05-14] MEDS: Aspirin 81 MG TAB.CHEW PO SCH (10:07)
[2017-05-14] MEDS ORDERED: Insulin LISPRO 300 UNITS/3 ML VIAL SQ SCH ×2 (12:49)
--- NOTE | 2017-05-14 13:12 | Internal Med Progress Note ---
Date of Encounter: 05/14/17 Time of Encounter: 13:10 - Assessment and plan (1) Left ureteral stone Current Visit: Yes Status: Acute (2) Atrial fibrillation Current Visit: No Status: Chronic Qualifiers: Atrial fibrillation type: unspecified Qualified Code(s): I48.91 - Unspecified atrial fibrillation (3) Diabetes mellitus Current Visit: Yes Status: Acute Qualifiers: Diabetes mellitus type: type 2 Diabetes mellitus senior living insulin use: without vermin exterminator use Diabetes mellitus complication status: with other specified complication Qualified Code(s): E11.69 - Type 2 diabetes mellitus with other specified complication - Subjective Interval history: Interval History: 05/13/2017 Pain improved but still 7/10 when he moves Gross hematuria Okayed to d/c per urology earlier in day but hematuria worsened and held another day 05/14/2017 Flank pain worse today Still having hematuria today with large clots Hgb dropped slightly Still off Xarelto BG still high and insulin increased again Rechecking BMP UO still normal (no signs of bladder outlet obstructions from clots Left ureteral calculus: S/p stent placement Continue [place] for pain Contiue phenergan for N/V UA neg Leukocytosis likely reactive Hematuria became worse throughout day and d/c still on hold Xarelto temporarily held Recheck CBC in am (2) MINH in the setting of one functional kidney Good UO Continue to monitor renal function Hold nephrotoxic medications (3) Mild hyperkalemia: Associated with mild MINH Held Spironolactone Kayexalate given Resolved today Restart spironolactone tomorrow (4) Atrial fibrillation Rate controlled with BB Xarelto held because of worsening hematuria (4) Diabetes mellitus DM-2 Continue home oral antihyperglycemics Accuchecks qACHS SSI qACHS added due to high BG levels - Constitutional Vitals: Temp Pulse Resp BP Pulse Ox 98.4 F 93 18 120/76 95 05/14/17 11:18 05/14/17 11:18 05/14/17 11:18 05/14/17 11:18 05/14/17 11:18 General appearance: Present: mild distress, A&O X 3, morbidly obese, pleasant - Head Head exam: Present: atraumatic, normocephalic - Eye Eye exam: Present: PERRL, conjuntiva pink, sclera anicteric Pupils: Present: PERRL - Neck Neck exam general surgery: Present: supple, trachea midline. Absent: lymphadenopathy - Respiratory Respiratory exam: Present: CTAB. Absent: accessory muscle use, rales, rhonchi, wheezes - Cardiovascular Cardiovascular exam: Present: RRR, +S1, +S2. Absent: diastolic murmur, gallop, rubs, systolic murmur - GI/Abdominal GI/Abdominal exam: Present: normal bowel sounds, soft, no peritoneal signs. Absent: distended, firm, guarding, tenderness - Extremities Exam Extremities exam: Present: warm. Absent: calf tenderness, cyanotic, pedal edema - Neurological Exam Neurological exam: Present: CN II-XII intact, oriented X3, no focal deficits. Absent: pronater drift, facial droop, speech deficit - Psychiatric Psychiatric exam: Present: normal affect, normal mood - Skin Skin exam: Present: dry, intact Internal Medicine: Result - Labs CBC & Chem 7: 05/14/17 19:37 05/14/17 19:37 Labs: Short CBC 05/14/17 Range/Units 04:29 WBC 10.2 (4.3-11.1) K/mcL Hgb 14.1 (12.9-16.9) g/dL Hct 44.8 (37.5-50.1) % Plt Count 171 (140-400) K/mcL Neutrophils # 7.3 (1.6-8.9) K/mcL Consult Discharge Plan - Plan Instructions: Kidney Stones (DC) Referrals: Jim Smith MD [Primary Care Provider] -
[2017-05-14 14:50] LABS: Calcium 9.4 mg/dL (8.6-10.3); Potassium 4.3 mEq/L (3.5-5.1)
[2017-05-14 19:55] LABS: Basophils # 0.1 K/mcL (0.0-0.2); Basophils % 0.6 %; Eosinophils # 0.1 K/mcL (0.0-0.6); Eosinophils % 0.8 %; Hematocrit 41.9 % (37.5-50.1); Hemoglobin 13.6 g/dL (12.9-16.9); Immature Granulocytes % 0.3 % (0-4); Lymphocytes # 2.1 K/mcL (0.6-4.6); Lymphocytes % 24.1 %; Mean Corpuscular HGB Conc 32.5 g/dL (31.6-35.5); Mean Corpuscular Hemoglobin 28.6 pg (28.0-33.3); Monocytes # 0.9 K/mcL (0.0-1.3); Monocytes % 9.9 %; Neutrophils # 5.5 K/mcL (1.6-8.9); Platelet Count 131 K/mcL (140-400); Red Blood Count 4.76 M/mcL (4.19-5.50); Red Cell Distribution Width 12.9 % (11.5-14.5); Segmented Neutrophils % 64.3 %
[2017-05-14 20:16] LABS: Calcium 8.9 mg/dL (8.6-10.3); Potassium 4.3 mEq/L (3.5-5.1)
[2017-05-14] MEDS: *HR* HYDROcodone/Acet 10/325 mg TABLET PO PRN (22:20)
[2017-05-15] MEDS: 0.9 % Sodium Chloride 1,000 ML IVC SCH (01:10)
[2017-05-15] MEDS: *HR* HYDROcodone/Acet 10/325 mg TABLET PO PRN ×2 (03:51→15:20)
[2017-05-15] MEDS: Insulin LISPRO 300 UNITS/3 ML VIAL SQ SCH ×3 (09:08→17:01)
[2017-05-15] MEDS: Aspirin 81 MG TAB.CHEW PO SCH (09:09)
[2017-05-15] MEDS: Spironolactone 25 MG TABLET PO SCH (09:09)
[2017-05-15] MEDS: *HR* OxyCODONE Immed Rel 5 MG TABLET PO PRN (09:09)
[2017-05-15] MEDS: Fluticasone Propionate Nasal 50 MCG/SPRAY BOTTLE NS SCH (09:10)
--- NOTE | 2017-05-15 14:32 | Internal Med Progress Note ---
Date of Encounter: 05/15/17 - Assessment and plan (1) Left ureteral stone Current Visit: Yes Status: Acute (2) Atrial fibrillation Current Visit: No Status: Chronic Qualifiers: Atrial fibrillation type: unspecified Qualified Code(s): I48.91 - Unspecified atrial fibrillation (3) Diabetes mellitus Current Visit: Yes Status: Acute Qualifiers: Diabetes mellitus type: type 2 Diabetes mellitus longterm insulin use: without longterm use Diabetes mellitus complication status: with other specified complication Qualified Code(s): E11.69 - Type 2 diabetes mellitus with other specified complication - Subjective Interval history: Interval History: 05/13/2017 Pain improved but still 7/10 when he moves Gross hematuria Okayed to d/c per urology earlier in day but hematuria worsened and held another day 05/14/2017 Flank pain worse today Still having hematuria today with large clots Hgb dropped slightly Aspirin and Xarelto restarted yesterday BG still high and insulin increased again Rechecking BMP UO still normal (no signs of bladder outlet obstructions from clots 05/15/2017: Left ureteral calculus: S/p stent placement Continue [place] for pain Contiue phenergan for N/V UA neg Leukocytosis likely reactive Hematuria became worse throughout day and d/c still on hold Xarelto temporarily held Recheck CBC in am (2) MINH in the setting of one functional kidney Good UO Continue to monitor renal function Hold nephrotoxic medications (3) Mild hyperkalemia: Associated with mild MINH Held Spironolactone Kayexalate given Resolved today Restart spironolactone tomorrow (4) Atrial fibrillation Rate controlled with BB Xarelto held because of worsening hematuria (4) Diabetes mellitus DM-2 Continue home oral antihyperglycemics Accuchecks qACHS SSI qACHS added due to high BG levels - Constitutional Vitals: Temp Pulse Resp BP Pulse Ox 97.6 F 74 16 110/74 93 05/15/17 06:51 05/15/17 06:51 05/15/17 06:51 05/15/17 06:51 05/15/17 06:51 General appearance: Present: mild distress, A&O X 3, morbidly obese, pleasant Internal Medicine: Result - Labs CBC & Chem 7: 05/14/17 19:37 05/14/17 19:37 Labs: Short CBC 05/14/17 Range/Units 19:37 WBC 8.6 (4.3-11.1) K/mcL Hgb 13.6 (12.9-16.9) g/dL Hct 41.9 (37.5-50.1) % Plt Count 131 L (140-400) K/mcL Neutrophils # 5.5 (1.6-8.9) K/mcL BMP 05/14/17 05/14/17 13:58 19:37 Sodium 137 136 Potassium 4.3 4.3 Chloride 105 105 Carbon Dioxide 24 23 BUN 34 H 33 H Creatinine 1.51 H 1.58 H Glucose 213 H 257 H Calcium 9.4 8.9 - VTE Documentation of Mechanical Device: Intermittent pneumatic compression device Consult Discharge Plan - Plan Instructions: Kidney Stones (DC) Referrals: Jim Smith MD [Primary Care Provider] -
[2017-05-15 15:07] VITALS: BP 131/77
[2017-05-15 16:14] LABS: Basophils # 0.1 K/mcL (0.0-0.2); Eosinophils # 0.2 K/mcL (0.0-0.6); Eosinophils % 2.7 %; Hematocrit 39.7 % (37.5-50.1); Hemoglobin 13.1 g/dL (12.9-16.9); Immature Granulocytes % 0.4 % (0-4); Lymphocytes # 2.4 K/mcL (0.6-4.6); Lymphocytes % 31.9 %; Mean Corpuscular Hemoglobin 28.9 pg (28.0-33.3); Mean Corpuscular Volume 87.4 fL (83.0-100.0); Mean Platelet Volume 11.7 fL (9.4-12.4); Monocytes # 0.8 K/mcL (0.0-1.3); Monocytes % 11.3 %; Neutrophils # 3.9 K/mcL (1.6-8.9); Nucleated Red Blood Cells 0.3 /100 WBC (0); Platelet Count 164 K/mcL (140-400); Red Blood Count 4.54 M/mcL (4.19-5.50); Red Cell Distribution Width 12.7 % (11.5-14.5); Segmented Neutrophils % 52.7 %
--- NOTE | 2017-05-15 16:57 | Discharge Summary ---
- NOTES TO OUTPATIENT PROVIDER Notes to Outpatient Provider: He will be called by Urology office to schedule outpatient procedure. Date of Encounter: 05/16/17 Time of Encounter: 16:54 - Discharge Diagnosis (1) Left ureteral stone Priority: Primary Status: Acute Code(s): N20.1 - Calculus of ureter (2) Atrial fibrillation Priority: Secondary Status: Chronic Qualifiers: Atrial fibrillation type: unspecified Qualified Code(s): I48.91 - Unspecified atrial fibrillation (3) Diabetes mellitus Priority: Secondary Status: Chronic Qualifiers: Diabetes mellitus type: type 2 Diabetes mellitus skilled nursing insulin use: without exterminator termite use Diabetes mellitus complication status: with other specified complication Qualified Code(s): E11.69 - Type 2 diabetes mellitus with other specified complication (4) Gross hematuria Priority: Primary Status: Acute Code(s): R31.0 - Gross hematuria Hospital course: Discharge Diagnoses: Left ureteral calculus: Gross Hematuria Atrial Fibrillation DM-2 Hospital course: The patient is a 67 yr old man with a history of multiple kidney stones and a solitary kidney who presented in the ER with left flank pain which has been going on for approximately one week. He was seen by his urologist, Dr. Smith who did an Xray which noted a left-sided kidney stone which he thought could pass on its own. However, the pain was more intense today and his urine output was decreased and he had hematuria prompting him to come to the ER. Because of his solitary kidney and hydronephrosis noted on imaging urology was called and Dr. Watson saw the patient in the ER and urgently performed a cystoscopy with left ureteral stent placement. He tolerated the procedure well and remained hemodynamically stable,but experienced gross hematuia even though Xarelto and aspirin were held. He continued to have hematuria for the next day before Xarelto and aspirin could be restarted. Due to the large amount of hematuia he was kept over night after restarting both aspirin and Xarelto. His Hematuia resolved and his Hgb remained stable for > 24 hrs so he was safely discharged to home. He had a mild MINH and hyperkalemia so he was hydrated and given one dose of Kayexalate while holding his Aldactone overnight. His potassium returned to normal and Aldactone was restarted. Urology recommend to not start Pyridium while his renal function was decreased. The will schedule him for a left ureteroscopic stone extraction in the next 2-3 weeks as an OP. Patient will receive a phone call from their office regarding the surgery scheduled date. He was stable at the time of discharge with no significant hematuria. He was advised to return to the ER and hold his Xarelto if he begins having gross hematuria again. Discharge discussed with: patient, family, nurse Time spent discussing smoking cessation with patient: more than 10 minutes - Time Spent with Patient Total time spent providing and/or coordinating discharge services: Greater than 30 minutes - Discharge Medications Home Medications: Aspirin 81 mg PO DAILY 11/03/15 [History] Carvedilol 3.125 mg PO BID 11/03/15 [History] Fluticasone Propionate Nasal [Flonase] 2 spray NS DAILY 11/03/15 [History] Furosemide [Lasix] 40 mg PO DAILY 11/03/15 [History] Glimepiride [Amaryl] 2 mg PO BID 11/03/15 [History] OxyCODONE/APAP 5/325 [Percocet 5/325 MG] 1 each PO Q6HR PRN 11/03/15 [History] Pantoprazole Sodium [Protonix] 40 mg PO DAILY 11/03/15 [History] Rivaroxaban [Xarelto] 15 mg PO QPM 11/03/15 [History] Simvastatin [Zocor] 40 mg PO HS 11/03/15 [History] Spironolactone [Aldactone] 25 mg PO BID 11/03/15 [History] Betamethasone Bernarda 0.1% Crm [Valisone 0.1%] 1 appl TP DAILY 05/12/17 [History] Mupirocin [Bactroban Oint] 1 appl TP TID 05/12/17 [History] Tamsulosin [Flomax] 0.4 mg PO DAILY 05/12/17 [History] Triamcinolone Acetonide 1 appl TP BID 05/12/17 [History] Allergies/Adverse Reactions: 3 Allergy/AdvReac Type Severity Reaction Status Date / Time cephalexin [From Keflex] Allergy Hives Verified 11/03/16 11:39 Penicillins [PCN] Allergy Hives Verified 11/03/16 11:38 Sulfa (Sulfonamide Allergy Hives Verified 11/03/16 11:39 Antibiotics) Date of admission: 05/12/17 17:15 Primary care physician: Jim Smith MD - Constitutional Vitals: Temp Pulse Resp BP Pulse Ox 97.6 F 74 16 131/77 97 05/15/17 15:07 05/15/17 15:07 05/15/17 15:07 05/15/17 15:07 05/15/17 15:07 General appearance: Present: mild distress, A&O X 3, morbidly obese, pleasant - Head Head exam: Present: atraumatic, normocephalic - Eye Eye exam: Present: PERRL, conjuntiva pink, sclera anicteric Pupils: Present: PERRL - Neck Neck exam general surgery: Present: supple, trachea midline. Absent: lymphadenopathy - Respiratory Respiratory exam: Present: CTAB. Absent: accessory muscle use, rales, rhonchi, wheezes - Cardiovascular Cardiovascular exam: Present: RRR, +S1, +S2. Absent: diastolic murmur, gallop, rubs, systolic murmur - GI/Abdominal GI/Abdominal exam: Present: normal bowel sounds, soft, no peritoneal signs. Absent: distended, tenderness - Extremities Exam Extremities exam: Present: warm, radial pulses palpable and symmetrical. Absent : calf tenderness, cyanotic, pedal edema - Neurological Exam Neurological exam: Present: CN II-XII intact, oriented X3, no focal deficits. Absent: pronater drift, facial droop, speech deficit - Skin Skin exam: Present: dry, intact - Patient Status Disposition: Home, Self-Care Condition: Fair - Discharge Instructions Instructions: Kidney Stones (DC) Follow Up With: Jim Smith MD [Primary Care Provider] - - VTE Documentation of Mechanical Device: Intermittent pneumatic compression device
[2017-05-15] MEDS: *HR* Rivaroxaban 15 MG TABLET PO SCH (17:08)
== END 2017-05-15 18:05 | disposition home or self-care (01) ==
LOC: EMEROO 14:17 → 3ANU 14:17
PROVIDERS: ADMIT Urology; ATTEND Hospitalist

== ENCOUNTER 2017-06-03 05:19 | Observation (INO) ==
--- NOTE | 2017-06-03 05:42 | Emergency Department Note ---
Disposition Clinical Impression: SIRS (systemic inflammatory response syndrome) Altered mental status Qualifiers: Altered mental status type: unspecified Qualified Code(s): R41.82 - Altered mental status, unspecified Leukocytosis Qualifiers: Leukocytosis type: unspecified Qualified Code(s): D72.829 - Elevated white blood cell count, unspecified Disposition: Still a Patient Condition: Fair Referrals: Jim Smith MD [Primary Care Provider] - Forms: ED Satisfaction Letter General Adult HPI - General Chief complaint: ED Altered Mental Status Stated complaint: AMS Time Seen by Provider: 06/03/17 05:31 Source: patient, family, EMS Limitations: no limitations Nursing Notes Reviewed: Yes Vital Signs Reviewed: Yes - History of Present Illness HPI Narrative: Patient 67-year-old male that presents emergency Department with altered mental status. The states that approximately 5 days ago he had a kidney stone removal and a stent that was placed. She states that the stent was removed approximately 2 days ago and after that he became altered and did not seem to be acting himself. States that he has been febrile and has had shaking chills. Also states that he is supposed to be taking doxycycline however he has not been taking it regularly due to it upsetting his stomach. Patient states that he does have some back pain that this feels similar to when he had a kidney stone. Pain Scale: 8 - Related Data Home Medications Medication Instructions Recorded Confirmed Aspirin [Adult Aspirin Regimen] 81 mg PO DAILY 06/03/17 06/03/17 Betamethasone Valerate 15 gm TP PRN PRN 06/03/17 06/03/17 Carvedilol 3.125 mg PO BID 06/03/17 06/03/17 Doxycycline Hyclate [Vibramycin] 100 mg PO BID 06/03/17 06/03/17 Fluticasone Propionate Nasal 50 mcg NS DAILY 06/03/17 06/03/17 [Flonase] Furosemide [Lasix] 40 mg PO DAILY 06/03/17 06/03/17 Glimepiride [Amaryl] 2 mg PO BID 06/03/17 06/03/17 Mupirocin [Bactroban Oint] 22 gm TP PRN PRN 06/03/17 06/03/17 OxyCODONE/APAP 5/325 [Percocet 1 each PO Q6HR PRN 06/03/17 06/03/17 5/325 MG] Pantoprazole Sodium [Protonix] 40 mg PO DAILY 06/03/17 06/03/17 Rivaroxaban [Xarelto] 15 mg PO 1700 06/03/17 06/03/17 Simvastatin [Zocor] 40 mg PO HS 06/03/17 06/03/17 Spironolactone [Aldactone] 25 mg PO BID 06/03/17 06/03/17 Tamsulosin [Flomax] 0.4 mg PO DAILY 06/03/17 06/03/17 Allergies Allergy/AdvReac Type Severity Reaction Status Date / Time cephalexin [From Keflex] Allergy Hives Verified 05/29/17 10:43 Penicillins [PCN] Allergy Hives Verified 05/29/17 10:43 Sulfa (Sulfonamide Allergy Hives Verified 05/29/17 10:43 Antibiotics) All systems ED: reviewed and negative except as stated. Constitutional: Reports: fever, chills Cardiovascular: Denies: chest pain Respiratory: Denies: dyspnea Gastrointestinal: Denies: abdominal pain Musculoskeletal: Reports: back pain Past Medical History - Past Medical History Medical history: Reports: atrial fibrillation, diabetes, hyperlipidemia, hypertension, kidney stones, RA, renal disease Surgical history: Reports: cataract, cholecystectomy, colectomy, knee replacement, orthopedic, other, sinus surgery Psychiatric history: Reports: no psych history - Social History Smoking Status: Former smoker Smokeless Tobacco Status: No Alcohol use: Reports: none Drug use: Reports: none Physical Exam - General Limitations: no limitations General appearance: alert, in no apparent distress - Head Head exam: atraumatic, normocephalic - Eye Eye exam: Present: normal appearance, EOMI - Neck Neck exam: Present: normal inspection, full ROM, trachea midline - Respiratory Respiratory exam: Present: normal lung sounds bilaterally. Absent: respiratory distress, wheezes - Cardiovascular Cardiovascular exam: Present: regular rate, normal rhythm, normal heart sounds, +S1, +S2 - Abdominal Exam Abdominal exam: Present: soft, Non-Tender, normal bowel sounds - Neurological Exam Neurological exam: Present: alert, oriented X3 - Psychiatric Psychiatric exam: Present: normal affect, normal mood - Skin Skin exam: Present: warm, dry, intact Course Vital Signs Temperature 99.4 F 06/03/17 05:23 Pulse Rate 88 06/03/17 05:23 Respiratory Rate 18 06/03/17 05:23 Blood Pressure 123/98 06/03/17 05:23 O2 Sat by Pulse Oximetry 93 06/03/17 05:23 Temperature 99.4 F 06/03/17 05:23 Pulse Rate 84 06/03/17 06:06 Respiratory Rate 20 06/03/17 06:06 Blood Pressure 102/52 06/03/17 06:06 O2 Sat by Pulse Oximetry 94 06/03/17 06:06 Oxygen Delivery Oxygen Delivery Nasal Cannula Medical Decision Making - MDM Narrative Medical decision making narrative: Due to the patient having reports of altered mental status, being febrile and having recent renal stone extraction and stent placement we will evaluate for possible infectious etiology and possible sepsis related to the patient's altered mental status. We will also obtain a CT of the abdomen and pelvis to rule out kidney stone. Due to the patient having an elevated white count, respiratory rate of 20 there is concern for possible surgical criteria and possible sepsis due to the patient having a recent stone removal. The patient will be put on vancomycin and meropenem. The patient will also receive a 2 L bolus. We felt that the full 30 mL/kg dose would have put the patient into fluid overload due to that being 4830 mL of fluid. Due to shift change the patient will be signed out to the day team of Dr. Morley - Lab Data Lab results reviewed: Yes I reviewed the patient's lab results. Result diagrams: 06/03/17 06:05 Lab Results 06/03/17 06/03/17 06/03/17 Range/Units 06:05 06:05 06:05 WBC 16.9 H (4.3-11.1) K/mcL RBC 4.46 (4.19-5.50) M/mcL Hgb 13.0 (12.9-16.9) g/dL Hct 38.6 (37.5-50.1) % MCV 86.5 (83.0-100.0) fL MCH 29.1 (28.0-33.3) pg MCHC 33.7 (31.6-35.5) g/dL RDW 12.0 (11.5-14.5) % Plt Count 129 L (140-400) K/mcL MPV 12.1 (9.4-12.4) fL Immature Gran % 0.6 (0-4) % Seg Neutrophils % 82.9 % Lymphocytes % 6.3 % Monocytes % 10.0 % Eosinophils % 0.0 % Basophils % 0.2 % Neutrophils # 14.0 H (1.6-8.9) K/mcL Lymphocytes # 1.1 (0.6-4.6) K/mcL Monocytes # 1.7 H (0.0-1.3) K/mcL Eosinophils # 0.0 (0.0-0.6) K/mcL Basophils # 0.0 (0.0-0.2) K/mcL PT 30.3 H (9.4-12.1) Seconds INR 2.8 APTT 34.6 (26.0-36.0) Seconds VBG pH (7.32-7.42) pH Units VBG pCO2 (41-51) mmHg VBG pO2 (25-50) mmHg VBG HCO3 (21-27) mEq/L Carboxyhemoglobin 2.8 (0-5) % Lactic Acid (0.5-2.2) mmol/L 06/03/17 06/03/17 Range/Units 06:05 06:24 WBC (4.3-11.1) K/mcL RBC (4.19-5.50) M/mcL Hgb (12.9-16.9) g/dL Hct (37.5-50.1) % MCV (83.0-100.0) fL MCH (28.0-33.3) pg MCHC (31.6-35.5) g/dL RDW (11.5-14.5) % Plt Count (140-400) K/mcL MPV (9.4-12.4) fL Immature Gran % (0-4) % Seg Neutrophils % % Lymphocytes % % Monocytes % % Eosinophils % % Basophils % % Neutrophils # (1.6-8.9) K/mcL Lymphocytes # (0.6-4.6) K/mcL Monocytes # (0.0-1.3) K/mcL Eosinophils # (0.0-0.6) K/mcL Basophils # (0.0-0.2) K/mcL PT (9.4-12.1) Seconds INR APTT (26.0-36.0) Seconds VBG pH 7.48 H (7.32-7.42) pH Units VBG pCO2 28 L (41-51) mmHg VBG pO2 127 H (25-50) mmHg VBG HCO3 21 (21-27) mEq/L Carboxyhemoglobin (0-5) % Lactic Acid 1.3 (0.5-2.2) mmol/L - EKG Data EKG #1 EKG attestation: Yes I reviewed and interpreted this EKG. EKG results narrative: EKG shows a sinus rhythm at rate of 87 bpm, KS interval of 229, QRS duration of 102, QTC of 427 with a normal axis. Patient is noted to have a first-degree AV block which is also present on previous EKG on 05/19/17. No STEMI is noted on this EKG. Attestation Statement - Attestation Attestation: I examined this patient and my medical decision-making was reviewed with the Resident Physician. I agree with the documented findings, disposition and treatment plan as described except to the extent set forth below. Patient has possible early sepsis from recent kidney stone removal. We will obtain cultures , start broad-spectrum antibiotics. Patient will need additional altered mental status workup to exclude other causes of AMS including CT scan of the brain, ammonia, lactate, urinalysis. Final disposition will be admission this patient will be signed out to Dr. Chu for further management follow-up on advanced imaging as well as laboratory analyses.
[2017-06-03 06:25] LABS: Basophils % 0.2 %; Hematocrit 38.6 % (37.5-50.1); Immature Granulocytes % 0.6 % (0-4); Lymphocytes # 1.1 K/mcL (0.6-4.6); Lymphocytes % 6.3 %; Mean Corpuscular HGB Conc 33.7 g/dL (31.6-35.5); Mean Corpuscular Hemoglobin 29.1 pg (28.0-33.3); Mean Corpuscular Volume 86.5 fL (83.0-100.0); Mean Platelet Volume 12.1 fL (9.4-12.4); Monocytes # 1.7 K/mcL (0.0-1.3); Platelet Count 129 K/mcL (140-400); Red Blood Count 4.46 M/mcL (4.19-5.50); Segmented Neutrophils % 82.9 %
[2017-06-03 06:28] LABS: VBG HCO3 21 mEq/L (21-27); VBG PCO2 28 mmHg (41-51); VBG PH 7.48 pH Units (7.32-7.42); VBG PO2 127 mmHg (25-50)
[2017-06-03 06:31] LABS: INR 2.8; Prothrombin Time 30.3 Seconds (9.4-12.1)
[2017-06-03 06:32] LABS: Bilirubin,Urine Moderate (Negative); Blood,Urine Moderate (Negative); Clarity,Urine Cloudy (Clear); Color,Urine Orange (Yellow); Glucose,Urine (UA) 100 mg/dL (Normal); Ketones,Urine 15 mg/dL (Negative); Leukocyte Esterase,Urine Small (Negative); Nitrite,Urine Positive (Negative); Protein,Urine >=300 mg/dL (Neg-Trace); Specific Gravity,Urine 1.026 (1.010-1.025); Urobilinogen,Urine Normal (Normal)
[2017-06-03 06:34] LABS: Activated Partial Thrombo Time 34.6 Seconds (26.0-36.0)
[2017-06-03 06:44] LABS: Bacteria,Urine None Seen per hpf (None-Few); RBC,Urine 15-30 per hpf (0-3); Squamous Epithelial Cell,Urine Many per lpf (None-Few); WBC,Urine 15-30 per hpf (0-3)
[2017-06-03] MEDS: 0.9 % Sodium Chloride 1,000 ML IVC SCH ×3 (06:50→11:13)
[2017-06-03 06:52] LABS: Alanine Aminotransferase 11 Units/L (7-52); Albumin 3.5 g/dL (3.5-5.7); Albumin/Globulin Ratio 1.1 (1.1-2.2); Alkaline Phosphatase 30 Units/L (34-104); Aspartate Amino Transferase 12 Units/L (13-39); BUN/Creatinine Ratio 14 (6-26); Bilirubin,Direct 0.7 mg/dL (0.0-0.2); Bilirubin,Indirect 2.5 mg/dL (0.0-1.2); Bilirubin,Total 3.2 mg/dL (0.3-1.0); Blood Urea Nitrogen 21 mg/dL (8-23); Calcium 8.4 mg/dL (8.6-10.3); Carbon Dioxide 21 mEq/L (23-29); Chloride 98 mEq/L (98-107); Ethanol < 10 mg/dL (Less than 10); Globulin 3.1 g/dL (2.4-3.5); Glucose 290 mg/dL (70-105); Osmolality,Calculated 282 (280-300); Sodium 129 mEq/L (136-145); Total Protein 6.6 g/dL (6.4-8.9); eGFR For African Americans 55 (> 60); eGFR For Non-African Americans 45 (> 60)
[2017-06-03 06:55] LABS: Amphetamine Screen,Urine Negative ng/mL (Cutoff=1000); Barbiturate Screen,Urine Negative ng/mL (Cutoff=200); Benzodiazepines Screen,Urine Negative ng/mL (Cutoff=200); Cannabinoid Screen,Urine Negative ng/mL (Cutoff = 50); Cocaine Screen,Urine Negative ng/mL (Cutoff= 300); Opiate Screen,Urine Negative ng/mL (Cutoff=300); Phencyclidine Screen,Urine Negative ng/mL (Cutoff=25)
[2017-06-03 06:55] LABS: Troponin I 0.04 ng/mL (< 0.04)
[2017-06-03 07:03] LABS: Amorphous Sediment,Urine Many (Few); Granular Casts,Urine Moderate per lpf (None Seen); Hyaline Casts,Urine Few per lpf (None-Few)
--- NOTE | 2017-06-03 08:00 | Emergency Department Note ---
Disposition Clinical Impression: SIRS (systemic inflammatory response syndrome) Altered mental status Qualifiers: Altered mental status type: unspecified Qualified Code(s): R41.82 - Altered mental status, unspecified Leukocytosis Qualifiers: Leukocytosis type: unspecified Qualified Code(s): D72.829 - Elevated white blood cell count, unspecified Disposition: Admitted As Inpatient Condition: Fair Referrals: Jim Smith MD [Primary Care Provider] - Forms: ED Satisfaction Letter Time of Disposition: 07:45 Altered Mental Status HPI - General Chief Complaint: ED Altered Mental Status Stated Complaint: AMS Time Seen by Provider: 06/03/17 05:31 Source: patient, family, EMS Limitations: no limitations Nursing Notes Reviewed: Yes Vital Signs Reviewed: Yes - Related Data Home Medications Medication Instructions Recorded Confirmed Aspirin [Adult Aspirin Regimen] 81 mg PO DAILY 06/03/17 06/03/17 Betamethasone Valerate 15 gm TP PRN PRN 06/03/17 06/03/17 Carvedilol 3.125 mg PO BID 06/03/17 06/03/17 Doxycycline Hyclate [Vibramycin] 100 mg PO BID 06/03/17 06/03/17 Fluticasone Propionate Nasal 50 mcg NS DAILY 06/03/17 06/03/17 [Flonase] Furosemide [Lasix] 40 mg PO DAILY 06/03/17 06/03/17 Glimepiride [Amaryl] 2 mg PO BID 06/03/17 06/03/17 Mupirocin [Bactroban Oint] 22 gm TP PRN PRN 06/03/17 06/03/17 OxyCODONE/APAP 5/325 [Percocet 1 each PO Q6HR PRN 06/03/17 06/03/17 5/325 MG] Pantoprazole Sodium [Protonix] 40 mg PO DAILY 06/03/17 06/03/17 Rivaroxaban [Xarelto] 15 mg PO 1700 06/03/17 06/03/17 Simvastatin [Zocor] 40 mg PO HS 06/03/17 06/03/17 Spironolactone [Aldactone] 25 mg PO BID 06/03/17 06/03/17 Tamsulosin [Flomax] 0.4 mg PO DAILY 06/03/17 06/03/17 Allergies Allergy/AdvReac Type Severity Reaction Status Date / Time cephalexin [From Keflex] Allergy Hives Verified 05/29/17 10:43 Penicillins [PCN] Allergy Hives Verified 05/29/17 10:43 Sulfa (Sulfonamide Allergy Hives Verified 05/29/17 10:43 Antibiotics) Constitutional: Reports: fever, chills Cardiovascular: Denies: chest pain Respiratory: Denies: dyspnea Gastrointestinal: Denies: abdominal pain Musculoskeletal: Reports: back pain Past Medical History - Past Medical History Medical history: Reports: atrial fibrillation, diabetes, hyperlipidemia, hypertension, kidney stones, RA, renal disease Surgical history: Reports: cataract, cholecystectomy, colectomy, knee replacement, orthopedic, other, sinus surgery Psychiatric history: Reports: no psych history - Social History Smoking Status: Former smoker Smokeless Tobacco Status: No Alcohol use: Reports: none Drug use: Reports: none Physical Exam - General Limitations: no limitations General appearance: alert, in no apparent distress Course Vital Signs Temperature 99.4 F 06/03/17 05:23 Pulse Rate 88 06/03/17 05:23 Respiratory Rate 18 06/03/17 05:23 Blood Pressure 123/98 06/03/17 05:23 O2 Sat by Pulse Oximetry 93 06/03/17 05:23 Temperature 99.4 F 06/03/17 05:23 Pulse Rate 79 06/03/17 07:41 Respiratory Rate 18 06/03/17 07:41 Blood Pressure 97/59 06/03/17 07:41 O2 Sat by Pulse Oximetry 95 06/03/17 07:41 Oxygen Delivery Oxygen Delivery Nasal Cannula Altered Mental Status - MDM Narrative Medical decision making narrative: Patient care received in sign out at [address] of the head and abdomen, further laboratory evaluation, reevaluation and disposition. states the patient has become increasingly confused over the past 2-3 days he also had a temperature max of 104. Temperature improved with Tylenol over the past few days. Patient has a history of recent ureterolithiasis which required stenting and stone retrieval on 05/29. Urinalysis today shows possible urinary tract infection. Patient meets SIRS criteria with an elevated white blood cell count as well as a heart rate that is greater than 90. Patient started on antibiotics in the emergency department. He will be admitted to the hospitalist for further care and evaluation. - Medical Records Medical records reviewed: Yes I reviewed the patient's medical records. - Lab Data Lab results reviewed: Yes I reviewed the patient's lab results. Result diagrams: 06/03/17 06:05 06/03/17 06:05 Lab Results 06/03/17 06/03/17 06/03/17 Range/Units 06:05 06:05 06:05 WBC 16.9 H (4.3-11.1) K/mcL RBC 4.46 (4.19-5.50) M/mcL Hgb 13.0 (12.9-16.9) g/dL Hct 38.6 (37.5-50.1) % MCV 86.5 (83.0-100.0) fL MCH 29.1 (28.0-33.3) pg MCHC 33.7 (31.6-35.5) g/dL RDW 12.0 (11.5-14.5) % Plt Count 129 L (140-400) K/mcL MPV 12.1 (9.4-12.4) fL Immature Gran % 0.6 (0-4) % Seg Neutrophils % 82.9 % Lymphocytes % 6.3 % Monocytes % 10.0 % Eosinophils % 0.0 % Basophils % 0.2 % Neutrophils # 14.0 H (1.6-8.9) K/mcL Lymphocytes # 1.1 (0.6-4.6) K/mcL Monocytes # 1.7 H (0.0-1.3) K/mcL Eosinophils # 0.0 (0.0-0.6) K/mcL Basophils # 0.0 (0.0-0.2) K/mcL PT 30.3 H (9.4-12.1) Seconds INR 2.8 APTT 34.6 (26.0-36.0) Seconds VBG pH (7.32-7.42) pH Units VBG pCO2 (41-51) mmHg VBG pO2 (25-50) mmHg VBG HCO3 (21-27) mEq/L Carboxyhemoglobin (0-5) % Sodium 129 L (136-145) mEq/L Potassium 4.0 (3.5-5.1) mEq/L Chloride 98 (98-107) mEq/L Carbon Dioxide 21 L (23-29) mEq/L BUN 21 (8-23) mg/dL Creatinine 1.53 H (0.70-1.30) mg/dL Est GFR ( Amer) 55 L (> 60) Est GFR (Non-Af Amer) 45 L (> 60) BUN/Creatinine Ratio 14 (6-26) Glucose 290 H (70-105) mg/dL Calculated Osmolality 282 (280-300) Lactic Acid (0.5-2.2) mmol/L Calcium 8.4 L (8.6-10.3) mg/dL Total Bilirubin 3.2 H (0.3-1.0) mg/dL Direct Bilirubin 0.7 H (0.0-0.2) mg/dL Indirect Bilirubin 2.5 H (0.0-1.2) mg/dL AST 12 L (13-39) Units/L ALT 11 (7-52) Units/L Alkaline Phosphatase 30 L (34-104) Units/L Troponin I 0.04 H* (< 0.04) ng/mL Serum Total Protein 6.6 (6.4-8.9) g/dL Albumin 3.5 (3.5-5.7) g/dL Globulin 3.1 (2.4-3.5) g/dL Albumin/Globulin Ratio 1.1 (1.1-2.2) Urine Color (Yellow) Urine Clarity (Clear) Urine pH (5.0-8.0) pH Units Ur Specific [place] (1.010-1.025) Urine Protein (Neg-Trace) mg/dL Urine Glucose (UA) (Normal) mg/dL Urine Ketones (Negative) mg/dL Urine Blood (Negative) Urine Nitrite (Negative) Urine Bilirubin (Negative) Urine Urobilinogen (Normal) mg/dL Ur Leukocyte Esterase (Negative) Urine Microscopic RBC (0-3) per hpf Urine Microscopic WBC (0-3) per hpf Ur Squamous Epith Cells (None-Few) per lpf Amorphous Sediment (Few) Urine Bacteria (None-Few) per hpf Hyaline Casts (None-Few) per lpf Granular Casts (None Seen) per lpf Ur Culture Indicated? (NO) Urine Opiates Screen (Trjqii=129) ng/mL Ur Barbiturates Screen (Emypni=388) ng/mL Ur Phencyclidine Scrn (Cutoff=25) ng/mL Ur Amphetamines Screen (Kbbxkg=1519) ng/mL U Benzodiazepines Scrn (Ugivbe=744) ng/mL Urine Cocaine Screen (Cutoff= 300) ng/mL U Marijuana (THC) Screen (Cutoff = 50) ng/mL Ethyl Alcohol < 10 (Less than 10) mg/dL 06/03/17 06/03/17 06/03/17 Range/Units 06:05 06:05 06:16 WBC (4.3-11.1) K/mcL RBC (4.19-5.50) M/mcL Hgb (12.9-16.9) g/dL Hct (37.5-50.1) % MCV (83.0-100.0) fL MCH (28.0-33.3) pg MCHC (31.6-35.5) g/dL RDW (11.5-14.5) % Plt Count (140-400) K/mcL MPV (9.4-12.4) fL Immature Gran % (0-4) % Seg Neutrophils % % Lymphocytes % % Monocytes % % Eosinophils % % Basophils % % Neutrophils # (1.6-8.9) K/mcL Lymphocytes # (0.6-4.6) K/mcL Monocytes # (0.0-1.3) K/mcL Eosinophils # (0.0-0.6) K/mcL Basophils # (0.0-0.2) K/mcL PT (9.4-12.1) Seconds INR APTT (26.0-36.0) Seconds VBG pH (7.32-7.42) pH Units VBG pCO2 (41-51) mmHg VBG pO2 (25-50) mmHg VBG HCO3 (21-27) mEq/L Carboxyhemoglobin 2.8 (0-5) % Sodium (136-145) mEq/L Potassium (3.5-5.1) mEq/L Chloride (98-107) mEq/L Carbon Dioxide (23-29) mEq/L BUN (8-23) mg/dL Creatinine (0.70-1.30) mg/dL Est GFR ( Amer) (> 60) Est GFR (Non-Af Amer) (> 60) BUN/Creatinine Ratio (6-26) Glucose (70-105) mg/dL Calculated Osmolality (280-300) Lactic Acid 1.3 (0.5-2.2) mmol/L Calcium (8.6-10.3) mg/dL Total Bilirubin (0.3-1.0) mg/dL Direct Bilirubin (0.0-0.2) mg/dL Indirect Bilirubin (0.0-1.2) mg/dL AST (13-39) Units/L ALT (7-52) Units/L Alkaline Phosphatase (34-104) Units/L Troponin I (< 0.04) ng/mL Serum Total Protein (6.4-8.9) g/dL Albumin (3.5-5.7) g/dL Globulin (2.4-3.5) g/dL Albumin/Globulin Ratio (1.1-2.2) Urine Color [place] A (Yellow) Urine Clarity Cloudy A (Clear) Urine pH 5.0 (5.0-8.0) pH Units Ur Specific [place] 1.026 H (1.010-1.025) Urine Protein >=300 H (Neg-Trace) mg/dL Urine Glucose (UA) 100 H (Normal) mg/dL Urine Ketones 15 H (Negative) mg/dL Urine Blood Moderate H (Negative) Urine Nitrite Positive A (Negative) Urine Bilirubin Moderate H (Negative) Urine Urobilinogen Normal (Normal) mg/dL Ur Leukocyte Esterase Small H (Negative) Urine Microscopic RBC 15-30 H (0-3) per hpf Urine Microscopic WBC 15-30 H (0-3) per hpf Ur Squamous Epith Cells Many H (None-Few) per lpf Amorphous Sediment Many H (Few) Urine Bacteria None Seen (None-Few) per hpf Hyaline Casts Few (None-Few) per lpf Granular Casts Moderate H (None Seen) per lpf Ur Culture Indicated? NO. (NO) Urine Opiates Screen (Ezlnbe=672) ng/mL Ur Barbiturates Screen (Eoyejk=036) ng/mL Ur Phencyclidine Scrn (Cutoff=25) ng/mL Ur Amphetamines Screen (Ttjxep=3026) ng/mL U Benzodiazepines Scrn (Ohjzrb=201) ng/mL Urine Cocaine Screen (Cutoff= 300) ng/mL U Marijuana (THC) Screen (Cutoff = 50) ng/mL Ethyl Alcohol (Less than 10) mg/dL 06/03/17 06/03/17 Range/Units 06:16 06:24 WBC (4.3-11.1) K/mcL RBC (4.19-5.50) M/mcL Hgb (12.9-16.9) g/dL Hct (37.5-50.1) % MCV (83.0-100.0) fL MCH (28.0-33.3) pg MCHC (31.6-35.5) g/dL RDW (11.5-14.5) % Plt Count (140-400) K/mcL MPV (9.4-12.4) fL Immature Gran % (0-4) % Seg Neutrophils % % Lymphocytes % % Monocytes % % Eosinophils % % Basophils % % Neutrophils # (1.6-8.9) K/mcL Lymphocytes # (0.6-4.6) K/mcL Monocytes # (0.0-1.3) K/mcL Eosinophils # (0.0-0.6) K/mcL Basophils # (0.0-0.2) K/mcL PT (9.4-12.1) Seconds INR APTT (26.0-36.0) Seconds VBG pH 7.48 H (7.32-7.42) pH Units VBG pCO2 28 L (41-51) mmHg VBG pO2 127 H (25-50) mmHg VBG HCO3 21 (21-27) mEq/L Carboxyhemoglobin (0-5) % Sodium (136-145) mEq/L Potassium (3.5-5.1) mEq/L Chloride (98-107) mEq/L Carbon Dioxide (23-29) mEq/L BUN (8-23) mg/dL Creatinine (0.70-1.30) mg/dL Est GFR ( Amer) (> 60) Est GFR (Non-Af Amer) (> 60) BUN/Creatinine Ratio (6-26) Glucose (70-105) mg/dL Calculated Osmolality (280-300) Lactic Acid (0.5-2.2) mmol/L Calcium (8.6-10.3) mg/dL Total Bilirubin (0.3-1.0) mg/dL Direct Bilirubin (0.0-0.2) mg/dL Indirect Bilirubin (0.0-1.2) mg/dL AST (13-39) Units/L ALT (7-52) Units/L Alkaline Phosphatase (34-104) Units/L Troponin I (< 0.04) ng/mL Serum Total Protein (6.4-8.9) g/dL Albumin (3.5-5.7) g/dL Globulin (2.4-3.5) g/dL Albumin/Globulin Ratio (1.1-2.2) Urine Color (Yellow) Urine Clarity (Clear) Urine pH (5.0-8.0) pH Units Ur Specific [place] (1.010-1.025) Urine Protein (Neg-Trace) mg/dL Urine Glucose (UA) (Normal) mg/dL Urine Ketones (Negative) mg/dL Urine Blood (Negative) Urine Nitrite (Negative) Urine Bilirubin (Negative) Urine Urobilinogen (Normal) mg/dL Ur Leukocyte Esterase (Negative) Urine Microscopic RBC (0-3) per hpf Urine Microscopic WBC (0-3) per hpf Ur Squamous Epith Cells (None-Few) per lpf Amorphous Sediment (Few) Urine Bacteria (None-Few) per hpf Hyaline Casts (None-Few) per lpf Granular Casts (None Seen) per lpf Ur Culture Indicated? (NO) Urine Opiates Screen Negative (Urubby=277) ng/mL Ur Barbiturates Screen Negative (Pjgcic=161) ng/mL Ur Phencyclidine Scrn Negative (Cutoff=25) ng/mL Ur Amphetamines Screen Negative (Cxkeqq=9969) ng/mL U Benzodiazepines Scrn Negative (Hohpna=341) ng/mL Urine Cocaine Screen Negative (Cutoff= 300) ng/mL U Marijuana (THC) Screen Negative (Cutoff = 50) ng/mL Ethyl Alcohol (Less than 10) mg/dL - Radiology Data Radiology results reviewed: Yes I reviewed the patient's radiology results. TPA Checklist - LKW: 3-4.5 hrs Add. Warnings/Precautions Patient/family understanding: The patient/family members have been counseled and understood the risk, benefit , and alternatives of treatment.
--- NOTE | 2017-06-03 08:33 | Internal Med History&Physical ---
Date of Encounter: 06/03/17 Time of Encounter: 08:29 Assessment and Plan (1) MINH (acute kidney injury) Current visit: Yes Status: Acute Acute on chronic kidney injury was started on IV hydration and monitor (2) Elevated troponin Current visit: Yes Status: Acute With trend troponin (3) UTI (urinary tract infection) Current visit: Yes Status: Acute Acute UTI probably into sepsis was started on Rocephin and send for culture Qualifiers: Urinary tract infection type: acute cystitis Hematuria presence: without hematuria Qualified Code(s): N30.00 - Acute cystitis without hematuria (4) Altered mental status Current visit: Yes Status: Acute concern for possible sepsis Qualifiers: Altered mental status type: disorientation Qualified Code(s): R41.0 - Disorientation, unspecified (5) Leukocytosis Current visit: Yes Status: Acute Likely due to her urinary tract infection and possible sepsis Qualifiers: Leukocytosis type: bandemia Qualified Code(s): D72.825 - Bandemia (6) SIRS (systemic inflammatory response syndrome) Current visit: Yes Status: Acute (7) Atrial fibrillation Current visit: No Status: Chronic Currently EKG shows sinus rhythm we will continue xarelto Qualifiers: Atrial fibrillation type: unspecified Qualified Code(s): I48.91 - Unspecified atrial fibrillation (8) Diabetes mellitus Current visit: No Status: Chronic Resume home medication and place on sliding scale Qualifiers: Diabetes mellitus type: type 2 Diabetes mellitus snf insulin use: without snf use Diabetes mellitus complication status: with other specified complication Qualified Code(s): E11.69 - Type 2 diabetes mellitus with other specified complication Internal Medicine - H&P: HPI Chief complaint: mental status chnages Admitted From: Emergency Dept Plans for Post Hospital Care: Home History of present illness: Mr. Tong is a 67 year old male Patient with history of recent ureteral stent placement for kidney stone, atrial fibrillation on xarelto , diabetes, high cholesterol, hypertension, rheumatoid arthritis. Patient was recently discharged about 5 days ago and brought back to the emergency room by the due to mental status changes patient been more confused sometimes talking inappropriately also been having fever up to 104 with shaking chills and some back pain. Emergency room patient had a low-grade fever hemodynamically stable UA suggestive of UTI white count 16,000 CT of the head was unremarkable , CT of the abdomen no kidney stone but stone in the bladder. Patient will be admitted FOR POSSIBLE SEPSIS FROM UTI WILL SEND BLOOD CULTURES AND START HIM ON ROCEPHIN AND CONSULT UROLOGY FOR FOLLOW-UP. Past Med Surg Social Fam HX - Past Medical History Medical history: atrial fibrillation, diabetes, hyperlipidemia, hypertension, kidney stones, RA, renal disease Psychiatric history: no psych history - Past Surgical History Surgical History: cataract, cholecystectomy, colectomy, knee replacement, orthopedic, other, sinus surgery - Social History Smoking Status: Former smoker Smokeless Tobacco Status: No Alcohol use: none Drug use: none - Family History Father Living Status: Hx Family Cardiac Disorders: Yes Mother Living Status: Hx Family Cancer: Yes (Colon cancer) Hx Family Endocrine Disorder: Yes Internal Medicine - H&P: Meds Aspirin [Adult Aspirin Regimen] 81 mg PO DAILY 06/03/17 [History] Betamethasone Valerate 1 appl TP PRN PRN 06/03/17 [History] Carvedilol 3.125 mg PO BID 06/03/17 [History] Doxycycline Hyclate [Vibramycin] 100 mg PO BID 06/03/17 [History] Fluticasone Propionate Nasal [Flonase] 2 spr NS DAILY 06/03/17 [History] Furosemide [Lasix] 40 mg PO DAILY 06/03/17 [History] Glimepiride [Amaryl] 2 mg PO BID 06/03/17 [History] Mupirocin [Bactroban Oint] 1 appl TP PRN PRN 06/03/17 [History] OxyCODONE/APAP 5/325 [Percocet 5/325 MG] 1 tab PO Q6HR PRN 06/03/17 [History] Pantoprazole Sodium [Protonix] 40 mg PO DAILY 06/03/17 [History] Phenazopyridine [Pyridium] 100 mg PO TID PRN 06/03/17 [History] Rivaroxaban [Xarelto] 15 mg PO QPM 06/03/17 [History] Simvastatin [Zocor] 40 mg PO HS 06/03/17 [History] Spironolactone [Aldactone] 25 mg PO BID 06/03/17 [History] Tamsulosin [Flomax] 0.4 mg PO DAILY 06/03/17 [History] Triamcinolone Acetonide 1 appl TP PRN PRN 06/03/17 [History] 3 Allergy/AdvReac Type Severity Reaction Status Date / Time cephalexin [From Keflex] Allergy Hives Verified 06/03/17 08:11 Penicillins [PCN] Allergy Hives Verified 06/03/17 08:11 Sulfa (Sulfonamide Allergy Hives Verified 06/03/17 08:11 Antibiotics) All Systems PM: A 10-system review of systems was performed and is negative for pertinent findings except as documented above in the HPI. - Constitutional Constitutional: chills, fatigue, fever(s) - EENT Eyes: no change in vision, no discharge, no pain, no photophobia Ears: no ear discharge, no ear pain, no tinnitus Nose, mouth and throat: no dysphagia, no nasal discharge, no neck pain, no sore throat - Cardiovascular Cardiovascular ROS IM: no chest pain, no diaphoresis, no dyspnea, no lightheadedness, no palpitations, no syncope - Respiratory Respiratory: no cough, no dyspnea, no wheezing, no excessive phlegm production - Gastrointestinal Gastrointestinal: no abdominal pain, no diarrhea, no hematemesis, no hematochezia, no melena, no nausea, no vomiting - Musculoskeletal Musculoskeletal ROS IM: other - Neurological Neurological ROS: confusion - Constitutional Vitals: Temp Pulse Resp BP Pulse Ox 98.3 F 89 24 91/65 94 06/03/17 08:27 06/03/17 08:27 06/03/17 08:27 06/03/17 08:27 06/03/17 08:27 General appearance: Present: mild distress - Eye Eye exam: Present: PERRL, conjuntiva pink, sclera anicteric Pupils: Present: PERRL - Neck Neck exam general surgery: Present: supple, trachea midline. Absent: lymphadenopathy - Respiratory Respiratory exam: Present: CTAB. Absent: accessory muscle use, rales, rhonchi, wheezes - Cardiovascular Cardiovascular exam: Present: RRR, +S1, +S2. Absent: diastolic murmur, gallop, rubs, systolic murmur - GI/Abdominal GI/Abdominal exam: Present: normal bowel sounds, soft, no peritoneal signs. Absent: distended, tenderness Internal Med - H&P Results - Labs CBC & Chem 7: 06/03/17 06:05 06/03/17 06:05 Labs: Short CBC 06/03/17 Range/Units 06:05 WBC 16.9 H (4.3-11.1) K/mcL Hgb 13.0 (12.9-16.9) g/dL Hct 38.6 (37.5-50.1) % Plt Count 129 L (140-400) K/mcL Neutrophils # 14.0 H (1.6-8.9) K/mcL BMP 06/03/17 06:05 Sodium 129 L Potassium 4.0 Chloride 98 Carbon Dioxide 21 L BUN 21 Creatinine 1.53 H Glucose 290 H Calcium 8.4 L Cardiac Enzymes 06/03/17 Range/Units 06:05 Troponin I 0.04 H* (< 0.04) ng/mL Liver Function 06/03/17 Range/Units 06:05 Total Bilirubin 3.2 H (0.3-1.0) mg/dL Direct Bilirubin 0.7 H (0.0-0.2) mg/dL AST 12 L (13-39) Units/L ALT 11 (7-52) Units/L Alkaline Phosphatase 30 L (34-104) Units/L Albumin 3.5 (3.5-5.7) g/dL Urine 06/03/17 Range/Units 06:16 Urine Color [place] A (Yellow) Urine Clarity Cloudy A (Clear) Urine pH 5.0 (5.0-8.0) pH Units Ur Specific [place] 1.026 H (1.010-1.025) Urine Protein >=300 H (Neg-Trace) mg/dL Urine Glucose (UA) 100 H (Normal) mg/dL - ABG Interpretation ABG results: 06/03/17 06:24 VBG pH 7.48 H VBG pCO2 28 L VBG pO2 127 H VBG HCO3 21 - Impressions ITS Impressions Chest X-Ray 06/03/17 05:31 IMPRESSION: Pulmonary vascular congestion. Low lung volumes. Stable right upper lobe mass stable since previous chest CT of 11/07/2014. D/ / 06/03/2017 08:09:47 Jake Ignacio MD / [facility] Interpreting Provider: Jake Ignacio MD Abdomen/Pelvis CT 06/03/17 05:44 IMPRESSION: Interval passage of stones from the left renal collecting system with decompression of pelvocaliceal system on the left. There is now a punctate calculus in the dependent portion of the urinary bladder right of midline likely reflecting caudal migration of left ureteral stones when correlated to the study from 05/12/2017. Chronic pelvicaliectasis and hydroureter on the right with marked thinning of the right renal parenchyma and a persistent stone in the distal right ureter. D/ / 06/03/2017 08:07:10 Fortino Cleary MD / [facility] Interpreting Provider: Fortino Cleary MD Head CT 06/03/17 07:01 IMPRESSION: No acute intracranial abnormality. Right frontal sinusitis. D/ / Giovanny Harden MD / Giovanny Harden MD Interpreting Provider: Giovanny Harden MD
[2017-06-03] MEDS ORDERED: traMADol 50 MG TABLET PO PRN (08:42)
[2017-06-03] MEDS ORDERED: Naloxone 0.4 MG/ML INJ IVP PRN (08:42)
[2017-06-03] MEDS ORDERED: Triamcinolone Acet 0.1% CRM 15 GM TUBE TP PRN (08:45)
[2017-06-03] MEDS ORDERED: Dextrose Gel 15 GM/37.5 ML TUBE PO PRN ×2 (09:51)
[2017-06-03] MEDS ORDERED: D5% in Water 1,000 ML IVC PRN (09:51)
[2017-06-03] MEDS ORDERED: *HR* Dextrose 50 % in Water (Syg) 50 ML SYRINGE IVP PRN (09:51)
[2017-06-03] MEDS: Aspirin Enteric Coated 81 MG Tablet PO SCH (11:14)
[2017-06-03] MEDS: cefTRIAXone 1,000 MG in Water for inj. (sterile) 20 ML 10 ML IVP SCH (11:14)
[2017-06-03] MEDS: Fluticasone Propionate Nasal 50 MCG/SPRAY BOTTLE NS SCH (11:14)
[2017-06-03] MEDS: Spironolactone 25 MG TABLET PO SCH ×2 (11:15→22:28)
[2017-06-03] MEDS: *HR* Glimepiride 2 MG TABLET PO SCH ×2 (11:15→18:47)
[2017-06-03] MEDS: Insulin LISPRO 300 UNITS/3 ML VIAL SQ SCH ×3 (12:38→22:29)
[2017-06-03] MEDS: Acetaminophen 325 MG TABLET PO PRN ×2 (16:42→17:43)
[2017-06-03] MEDS ORDERED: 0.9 % Sodium Chloride 500 ML IVC ONE (17:56)
[2017-06-03] MEDS ORDERED: *HR* Rivaroxaban 15 MG TABLET PO SCH (18:00)
--- NOTE | 2017-06-03 23:08 | Electrocardiograph Report ---
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
[2017-06-04] MEDS: *HR* OxyCODONE/APAP 5/325 TABLET PO PRN ×3 (04:44→20:23)
[2017-06-04 05:29] LABS: Adenovirus F 40/41 PCR Not detected (Not detect); Astrovirus PCR Not detected (Not detect); C.difficile Toxin A/B by PCR Not detected (Not detect); Campylobacter by PCR Not detected (Not detect); Cryptosporidium by PCR Not detected (Not detect); Cyclospora cayetanensis PCR Not detected (Not detect); E. coli O157 by PCR Not detected (Not detect); Entamoeba histolytica PCR Not detected (Not detect); Enteroaggregative E.coli(EAEC) Not detected (Not detect); Enteropathogenic E.coli(EPEC) Not detected (Not detect); Enterotoxigenic E.coli (ETEC) Not detected (Not detect); Giardia lamblia PCR Not detected (Not detect); Norovirus GI/GII PCR Not detected (Not detect); Plesiomonas shigelloides PCR Not detected (Not detect); Rotavirus A PCR Not detected (Not detect); Salmonella PCR Not detected (Not detect); Sapovirus PCR Not detected (Not detect); Shig/EnteroinvasiveE coli EIEC Not detected (Not detect); Shigalike tox-prod E coli STEC Not detected (Not detect); Vibrio PCR Not detected (Not detect); Vibrio cholerae PCR Not detected (Not detect); Yersinia enterocolitica PCR Not detected (Not detect)
[2017-06-04 05:41] LABS: Alanine Aminotransferase 10 Units/L (7-52); Albumin 3.2 g/dL (3.5-5.7); Albumin/Globulin Ratio 1.1 (1.1-2.2); Alkaline Phosphatase 33 Units/L (34-104); Aspartate Amino Transferase 16 Units/L (13-39); BUN/Creatinine Ratio 16 (6-26); Bilirubin,Total 1.5 mg/dL (0.3-1.0); Blood Urea Nitrogen 22 mg/dL (8-23); Calcium 7.5 mg/dL (8.6-10.3); Carbon Dioxide 17 mEq/L (23-29); Chloride 103 mEq/L (98-107); Globulin 2.8 g/dL (2.4-3.5); Glucose 268 mg/dL (70-105); Magnesium 1.3 mg/dL (1.6-2.6); Osmolality,Calculated 281 (280-300); Potassium 3.9 mEq/L (3.5-5.1); Sodium 129 mEq/L (136-145); eGFR For African Americans > 60 (> 60); eGFR For Non-African Americans 50 (> 60)
[2017-06-04 06:49] LABS: Hemoglobin 12.2 g/dL (12.9-16.9); Red Cell Distribution Width 12.4 % (11.5-14.5)
[2017-06-04 06:51] LABS: Hematocrit 37.7 % (37.5-50.1); Immature Platelets 12.7 % (1.1-6.1); Mean Corpuscular HGB Conc 32.4 g/dL (31.6-35.5); Mean Corpuscular Volume 89.5 fL (83.0-100.0); Mean Platelet Volume 13.1 fL (9.4-12.4); Red Blood Count 4.21 M/mcL (4.19-5.50)
[2017-06-04] MEDS: 0.9 % Sodium Chloride 1,000 ML IVC SCH (08:33)
[2017-06-04] MEDS: Insulin LISPRO 300 UNITS/3 ML VIAL SQ SCH ×4 (08:35→20:31)
[2017-06-04] MEDS: Spironolactone 25 MG TABLET PO SCH ×2 (08:38→20:21)
[2017-06-04] MEDS: Aspirin Enteric Coated 81 MG Tablet PO SCH (08:38)
[2017-06-04] MEDS: cefTRIAXone 1,000 MG in Water for inj. (sterile) 20 ML 10 ML IVP SCH (08:39)
[2017-06-04] MEDS: *HR* Glimepiride 2 MG TABLET PO SCH (08:39)
--- NOTE | 2017-06-04 11:34 | Urology - Consult Note ---
Date of Encounter: 06/04/17 Time of Encounter: 11:32 - Assessment and Plan (1) Atrophic kidney Current Visit: Yes Status: Acute Assessment and plan: Patient's right kidney is atrophic secondary to chronic distal obstruction. If patient fails to improve clinically we will need to consider drainage of his right kidney. This would most likely involve either nephrostomy tube or drainage by interventional radiology. (2) MINH (acute kidney injury) Current Visit: Yes Status: Acute Assessment and plan: Most likely secondary to dehydration as patient's serum creatinine has improved overnight with hydration. Not likely secondary to obstruction. (3) Leukocytosis Current Visit: Yes Status: Acute Assessment and plan: Unsure of cause at this time. Blood cultures have been negative. Urine culture still pending. Qualifiers: Leukocytosis type: bandemia Qualified Code(s): D72.825 - Bandemia (4) UTI (urinary tract infection) Current Visit: Yes Status: Acute Assessment and plan: Most likely source is UTI. Continue with broad-spectrum anabolic's until urine culture returns. We will continue to follow closely along. Qualifiers: Urinary tract infection type: acute cystitis Hematuria presence: without hematuria Qualified Code(s): N30.00 - Acute cystitis without hematuria (5) Bladder stone Current Visit: Yes Status: Acute Assessment and plan: This bladder stone is most likely a small fragment from his ureteroscopic stone extraction. Patient will likely void this out soon. No need for removal. Urology CN:HPI Consult date: 06/04/17 Reason for consult Urology: Other (uti with fever) Requesting physician: Giovanny Babcock History of present illness: Tutu is a 67-year-old male who recently underwent a left ureteroscopic stone extraction for ureteral stone. Patient removed his stent approximately 2-3 days after the procedure. 1 week later the patient has now presented back to the hospital secondary to fever and confusion. Patient was seen in the emergency department where a CT scan was done which revealed no obvious hydronephrosis or ureteral stone on the left side. There was a small stone within the bladder. Patient has chronic obstruction on his right side secondary to ureteral strictures and stones. Patient states that he has been having some back pain with radiation to the right side. This pain is an 8 out of 10 sharp in nature. No nausea or vomiting. He has still remained to have fevers overnight. Past Med Surg Social Fam HX - Past Medical History Medical history: atrial fibrillation, diabetes, hyperlipidemia, hypertension, kidney stones, RA, renal disease Psychiatric history: no psych history - Past Surgical History Surgical History: cataract, cholecystectomy, colectomy, knee replacement, orthopedic, other, sinus surgery - Social History Smoking Status: Former smoker Smokeless Tobacco Status: No Alcohol use: none Drug use: none - Family History Father Living Status: Hx Family Cardiac Disorders: Yes Mother Living Status: Hx Family Cancer: Yes (Colon cancer) Hx Family Endocrine Disorder: Yes Medications and Allergies Aspirin [Adult Aspirin Regimen] 81 mg PO DAILY 06/03/17 [History] Betamethasone Valerate 1 appl TP PRN PRN 06/03/17 [History] Carvedilol 3.125 mg PO BID 06/03/17 [History] Doxycycline Hyclate [Vibramycin] 100 mg PO BID 06/03/17 [History] Fluticasone Propionate Nasal [Flonase] 2 spr NS DAILY 06/03/17 [History] Furosemide [Lasix] 40 mg PO DAILY 06/03/17 [History] Glimepiride [Amaryl] 2 mg PO BID 06/03/17 [History] Mupirocin [Bactroban Oint] 1 appl TP PRN PRN 06/03/17 [History] OxyCODONE/APAP 5/325 [Percocet 5/325 MG] 1 tab PO Q6HR PRN 06/03/17 [History] Pantoprazole Sodium [Protonix] 40 mg PO DAILY 06/03/17 [History] Phenazopyridine [Pyridium] 100 mg PO TID PRN 06/03/17 [History] Rivaroxaban [Xarelto] 15 mg PO QPM 06/03/17 [History] Simvastatin [Zocor] 40 mg PO HS 06/03/17 [History] Spironolactone [Aldactone] 25 mg PO BID 06/03/17 [History] Tamsulosin [Flomax] 0.4 mg PO DAILY 06/03/17 [History] Triamcinolone Acetonide 1 appl TP PRN PRN 06/03/17 [History] 3 Allergy/AdvReac Type Severity Reaction Status Date / Time cephalexin [From Keflex] Allergy Hives Verified 06/03/17 08:11 Penicillins [PCN] Allergy Hives Verified 06/03/17 08:11 Sulfa (Sulfonamide Allergy Hives Verified 06/03/17 08:11 Antibiotics) Review of Systems - Constitutional chills, fever(s) - EENT Nose, mouth and throat: no dizziness, no headache(s) - Cardiovascular no chest pain, no diaphoresis - Respiratory no cough, no dyspnea - Gastrointestinal no abdominal pain, no nausea, no vomiting - Genitourinary hematuria (For the past couple of weeks) - Musculoskeletal back pain - Integumentary no erythema, no swelling - Neurological confusion (Improving) - Psychiatric no anxiety - Hematologic/Lymphatic no lymphadenopathy - Allergic/Immunologic no throat swelling, no wheezing Exam Initial Vital Signs Temp Pulse Resp BP Pulse Ox 99.4 F 88 18 123/98 93 06/03/17 05:23 06/03/17 05:23 06/03/17 05:23 06/03/17 05:23 06/03/17 05:23 General/Neuological: alert and oriented x 3, patient shivering in bed Eyes: normal pupils, non-icteric Neck: no lymphadenopathy noted, supple to touch Cardiovascular: RRR, no murmurs Respiratory: normal respiratory effort, clear bilaterally ABD: soft, nontender, no masses palpated, good bowel sounds, morbidly obese Back: no pain on percussion bilaterally : normal phallus, normal scrotum, testicles and epididymides normal, urethral meatus normal. Skin: no rashes noted, slighlty diaphoretic on exam Musculoskeletal: FROM Urology Results - Labs 06/04/17 05:02 06/04/17 05:02 Abnormal lab results WBC 12.5 K/mcL (4.3-11.1) H 06/04/17 05:02 Hgb 12.2 g/dL (12.9-16.9) L 06/04/17 05:02 Plt Count 83 K/mcL (140-400) L 06/04/17 05:02 MPV 13.1 fL (9.4-12.4) H 06/04/17 05:02 Neutrophils # 14.0 K/mcL (1.6-8.9) H 06/03/17 06:05 Monocytes # 1.7 K/mcL (0.0-1.3) H 06/03/17 06:05 Immature Plt Fraction 12.7 % (1.1-6.1) H 06/04/17 05:02 PT 30.3 Seconds (9.4-12.1) H 06/03/17 06:05 VBG pH 7.48 pH Units (7.32-7.42) H 06/03/17 06:24 VBG pCO2 28 mmHg (41-51) L 06/03/17 06:24 VBG pO2 127 mmHg (25-50) H 06/03/17 06:24 Sodium 129 mEq/L (136-145) L 06/04/17 05:02 Carbon Dioxide 17 mEq/L (23-29) L 06/04/17 05:02 Creatinine 1.41 mg/dL (0.70-1.30) H 06/04/17 05:02 Est GFR (Non-Af Amer) 50 (> 60) L 06/04/17 05:02 Glucose 268 mg/dL (70-105) H 06/04/17 05:02 POC Glucose 259 mg/dL (70-99) H 06/04/17 07:21 Calcium 7.5 mg/dL (8.6-10.3) L 06/04/17 05:02 Magnesium 1.3 mg/dL (1.6-2.6) L 06/04/17 05:02 Total Bilirubin 1.5 mg/dL (0.3-1.0) H 06/04/17 05:02 Direct Bilirubin 0.7 mg/dL (0.0-0.2) H 06/03/17 06:05 Indirect Bilirubin 2.5 mg/dL (0.0-1.2) H 06/03/17 06:05 Alkaline Phosphatase 33 Units/L (34-104) L 06/04/17 05:02 Troponin I 0.04 ng/mL (< 0.04) H* 06/03/17 06:05 Serum Total Protein 6.0 g/dL (6.4-8.9) L 06/04/17 05:02 Albumin 3.2 g/dL (3.5-5.7) L 06/04/17 05:02 Urine Color [place] (Yellow) A 06/03/17 06:16 Urine Clarity Cloudy (Clear) A 06/03/17 06:16 Ur Specific [place] 1.026 (1.010-1.025) H 06/03/17 06:16 Urine Protein >=300 mg/dL (Neg-Trace) H 06/03/17 06:16 Urine Glucose (UA) 100 mg/dL (Normal) H 06/03/17 06:16 Urine Ketones 15 mg/dL (Negative) H 06/03/17 06:16 Urine Blood Moderate (Negative) H 06/03/17 06:16 Urine Nitrite Positive (Negative) A 06/03/17 06:16 Urine Bilirubin Moderate (Negative) H 06/03/17 06:16 Ur Leukocyte Esterase Small (Negative) H 06/03/17 06:16 Urine Microscopic RBC 15-30 per hpf (0-3) H 06/03/17 06:16 Urine Microscopic WBC 15-30 per hpf (0-3) H 06/03/17 06:16 Ur Squamous Epith Cells Many per lpf (None-Few) H 06/03/17 06:16 Amorphous Sediment Many (Few) H 06/03/17 06:16 Granular Casts Moderate per lpf (None Seen) H 06/03/17 06:16 Diabetes panel 06/04/17 Range/Units 05:02 Sodium 129 L (136-145) mEq/L Potassium 3.9 (3.5-5.1) mEq/L Chloride 103 (98-107) mEq/L Carbon Dioxide 17 L (23-29) mEq/L BUN 22 (8-23) mg/dL Creatinine 1.41 H (0.70-1.30) mg/dL Glucose 268 H (70-105) mg/dL Calcium 7.5 L (8.6-10.3) mg/dL AST 16 (13-39) Units/L ALT 10 (7-52) Units/L Alkaline Phosphatase 33 L (34-104) Units/L Albumin 3.2 L (3.5-5.7) g/dL Calcium panel 06/04/17 Range/Units 05:02 Calcium 7.5 L (8.6-10.3) mg/dL Albumin 3.2 L (3.5-5.7) g/dL Pituitary panel 06/04/17 Range/Units 05:02 Sodium 129 L (136-145) mEq/L Potassium 3.9 (3.5-5.1) mEq/L Chloride 103 (98-107) mEq/L Carbon Dioxide 17 L (23-29) mEq/L BUN 22 (8-23) mg/dL Creatinine 1.41 H (0.70-1.30) mg/dL Glucose 268 H (70-105) mg/dL Calcium 7.5 L (8.6-10.3) mg/dL Adrenal panel 06/04/17 Range/Units 05:02 Sodium 129 L (136-145) mEq/L Potassium 3.9 (3.5-5.1) mEq/L Chloride 103 (98-107) mEq/L Carbon Dioxide 17 L (23-29) mEq/L BUN 22 (8-23) mg/dL Creatinine 1.41 H (0.70-1.30) mg/dL Glucose 268 H (70-105) mg/dL Calcium 7.5 L (8.6-10.3) mg/dL Total Bilirubin 1.5 H (0.3-1.0) mg/dL AST 16 (13-39) Units/L ALT 10 (7-52) Units/L Alkaline Phosphatase 33 L (34-104) Units/L Albumin 3.2 L (3.5-5.7) g/dL All other labs normal. - Imaging CT scan - abdomen: image reviewed CT scan - pelvis: image reviewed Consult Discharge Plan - Plan Referrals: Jim Smith MD [Primary Care Provider] -
[2017-06-04] MEDS: Fluticasone Propionate Nasal 50 MCG/SPRAY BOTTLE NS SCH (11:43)
[2017-06-04 12:37] LABS: Bilirubin,Urine Negative (Negative); Blood,Urine Moderate (Negative); Clarity,Urine Cloudy (Clear); Color,Urine Dark Yellow (Yellow); Glucose,Urine (UA) 100 mg/dL (Normal); Ketones,Urine Negative (Negative); Leukocyte Esterase,Urine Moderate (Negative); Nitrite,Urine Negative (Negative); Protein,Urine 100 mg/dL (Neg-Trace); Specific Gravity,Urine 1.026 (1.010-1.025); Urobilinogen,Urine Normal (Normal)
[2017-06-04 12:38] LABS: Bacteria,Urine None Seen per hpf (None-Few); Hyaline Casts,Urine None Seen per lpf (None-Few); Squamous Epithelial Cell,Urine Moderate per lpf (None-Few); WBC,Urine TNTC per hpf (0-3)
--- NOTE | 2017-06-04 13:09 | Internal Med Progress Note ---
<Giovanny Babcock - Last Filed: 06/04/17 13:06> Date of Encounter: 06/04/17 Time of Encounter: 13:06 - Assessment and plan (1) MINH (acute kidney injury) Current Visit: Yes Status: Acute Assessment and plan: MINH on CKD. Positive U/A. cx pending. renal function has improved today - continue IVF - renal diet - urology consulted - continue abx - continue to monitor renal function - strict I/O - AM labs (2) Altered mental status Current Visit: Yes Status: Acute Assessment and plan: currently resolved - serial mental status exams Qualifiers: Altered mental status type: disorientation Qualified Code(s): R41.0 - Disorientation, unspecified (3) Elevated troponin Current Visit: Yes Status: Acute Assessment and plan: will continue to trend trops (4) Leukocytosis Current Visit: Yes Status: Acute Assessment and plan: trending downward. Qualifiers: Leukocytosis type: bandemia Qualified Code(s): D72.825 - Bandemia (5) UTI (urinary tract infection) Current Visit: Yes Status: Acute Assessment and plan: U/A + for leuk and nitrites. - continue rocephin - cx pending Qualifiers: Urinary tract infection type: acute cystitis Hematuria presence: without hematuria Qualified Code(s): N30.00 - Acute cystitis without hematuria (6) Atrial fibrillation Current Visit: Yes Status: Chronic Assessment and plan: on xarelto. controlled on Coreg. HR goal <100 Qualifiers: Atrial fibrillation type: unspecified Qualified Code(s): I48.91 - Unspecified atrial fibrillation (7) Diabetes mellitus Current Visit: No Status: Chronic Assessment and plan: Currently on SSI Medium. If BG is elevated tomorrow will increase. 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 replaced orally. Will recheck in the AM - Time Spent With Patient Total time spent is greater than 50% in coordination of care (as documented) at patient's floor/unit and/or counseling patient: - Subjective Interval history: MR Tong is a 67 yo M w/ pmh of multiple failed renal stents and repeated renal caliculi, afib on xarelto, DM, HLD, HTN, RA. Patient last stent placement was 5 days ago. Patient presented to ED with AMS, chills, back pain similar to previous stones. Workup in the ED was suggestive of UTI, and stone in bladder but not in ureter. Patient continues to have back pain at site of stent. and continues to cycle through warmth and chills. Patient denies chest pain, sob, fever, nausea, vomiting. - Constitutional Vitals: Temp Pulse Resp BP Pulse Ox 98.2 F 76 16 143/84 96 06/04/17 11:28 06/04/17 11:28 06/04/17 11:28 06/04/17 11:28 06/04/17 11:28 General appearance: Present: mild distress, A&O X 3, morbidly obese, answers questions appropriately - Neck Neck exam general surgery: Present: supple - Respiratory Respiratory exam: Present: decreased breath sounds (difficult to here breath sounds due to body habitus) - Cardiovascular Cardiovascular exam: Present: RRR - Extremities Exam Additional comments: bilateral leg swelling and tender. most likely chronic. Internal Medicine: Result - Labs CBC & Chem 7: 06/04/17 05:02 06/04/17 05:02 Labs: Short CBC 06/04/17 Range/Units 05:02 WBC 12.5 H (4.3-11.1) K/mcL Hgb 12.2 L (12.9-16.9) g/dL Hct 37.7 (37.5-50.1) % Plt Count 83 L (140-400) K/mcL BMP 06/04/17 05:02 Sodium 129 L Potassium 3.9 Chloride 103 Carbon Dioxide 17 L BUN 22 Creatinine 1.41 H Glucose 268 H Calcium 7.5 L Liver Function 06/04/17 Range/Units 05:02 Total Bilirubin 1.5 H (0.3-1.0) mg/dL AST 16 (13-39) Units/L ALT 10 (7-52) Units/L Alkaline Phosphatase 33 L (34-104) Units/L Albumin 3.2 L (3.5-5.7) g/dL Urine 06/04/17 Range/Units 12:15 Urine Color Dark Yellow (Yellow) Urine Clarity Cloudy A (Clear) Urine pH 6.0 (5.0-8.0) pH Units Ur Specific [place] 1.026 H (1.010-1.025) Urine Protein 100 H (Neg-Trace) mg/dL Urine Glucose (UA) 100 H (Normal) mg/dL - ABG Interpretation ABG results: PT/INR, D-dimer PT 30.3 Seconds (9.4-12.1) H 06/03/17 06:05 Consult Discharge Plan - Plan Referrals: Jim Smith MD [Primary Care Provider] - <Nestor Krishnan - Last Filed: 06/04/17 17:58> Date of Encounter: 06/04/17 - Assessment and plan (1) UTI (urinary tract infection) Current Visit: Yes Status: Acute Qualifiers: Urinary tract infection type: acute cystitis Hematuria presence: without hematuria Qualified Code(s): N30.00 - Acute cystitis without hematuria (2) Acute metabolic encephalopathy Current Visit: Yes Status: Acute (3) Atrial fibrillation Current Visit: Yes Status: Chronic Qualifiers: Atrial fibrillation type: chronic Qualified Code(s): I48.2 - Chronic atrial fibrillation (4) Diabetes mellitus Current Visit: No Status: Chronic Qualifiers: Diabetes mellitus type: type 2 Diabetes mellitus fdc insulin use: without intermediate school teacher use Diabetes mellitus complication status: with other specified complication Qualified Code(s): E11.69 - Type 2 diabetes mellitus with other specified complication (5) Leukocytosis Current Visit: Yes Status: Acute Qualifiers: Leukocytosis type: bandemia Qualified Code(s): D72.825 - Bandemia (6) MINH (acute kidney injury) Current Visit: Yes Status: Acute (7) Elevated troponin Current Visit: Yes Status: Acute (8) Morbid obesity Current Visit: Yes Status: Acute (9) Hypomagnesemia Current Visit: Yes Status: Acute (10) DVT prophylaxis Current Visit: Yes Status: Acute - Time Spent With Patient Total time spent is greater than 50% in coordination of care (as documented) at patient's floor/unit and/or counseling patient: - Constitutional Vitals: Temp Pulse Resp BP Pulse Ox 98.4 F 86 16 103/47 93 06/04/17 15:34 06/04/17 15:34 06/04/17 15:34 06/04/17 15:34 06/04/17 15:34 Internal Medicine: Result - Labs CBC & Chem 7: 06/04/17 05:02 06/04/17 05:02 Labs: Short CBC 06/04/17 Range/Units 05:02 WBC 12.5 H (4.3-11.1) K/mcL Hgb 12.2 L (12.9-16.9) g/dL Hct 37.7 (37.5-50.1) % Plt Count 83 L (140-400) K/mcL BMP 06/04/17 05:02 Sodium 129 L Potassium 3.9 Chloride 103 Carbon Dioxide 17 L BUN 22 Creatinine 1.41 H Glucose 268 H Calcium 7.5 L Liver Function 06/04/17 Range/Units 05:02 Total Bilirubin 1.5 H (0.3-1.0) mg/dL AST 16 (13-39) Units/L ALT 10 (7-52) Units/L Alkaline Phosphatase 33 L (34-104) Units/L Albumin 3.2 L (3.5-5.7) g/dL Urine 06/04/17 Range/Units 12:15 Urine Color Dark Yellow (Yellow) Urine Clarity Cloudy A (Clear) Urine pH 6.0 (5.0-8.0) pH Units Ur Specific [place] 1.026 H (1.010-1.025) Urine Protein 100 H (Neg-Trace) mg/dL Urine Glucose (UA) 100 H (Normal) mg/dL - ABG Interpretation ABG results: PT/INR, D-dimer PT 30.3 Seconds (9.4-12.1) H 06/03/17 06:05 - Attending Attestation I examined this patient and my medical decision-making was reviewed with the Resident Physician on 06/04/17. I agree with the documented findings, disposition and treatment plan as described except to the extent set forth below. Mr Tong is currently admitted for UTI and encephalopathy. He remains moderate to high risk due to potential for worsening clinical status. Mr Tong is less confused. No fever. Appetite OK. No CP or SOB. Cultures pending. Exam alert Comfortable Mucus membranes dry Heart distant Lungs clear Abd soft I/P 1. Encephalopathy 2. UTI Further diagnoses and plan as above.
--- NOTE | 2017-06-04 16:26 | Infectious Disease Consult ---
Date of Encounter: 06/04/17 Time of Encounter: 16:26 Assessment and Plan (1) Sepsis Status: Acute Assessment and plan: The patient had two SIRS criteria with fever at home and leukocytosis. Source unclear, but I highly suspect a source given the clinical picture and the patient's recent urologic procedure. Improved. The patient did spike a fever after admission with Tmax of 102.8, but he has been afebrile since then. His WBC is trending down. Blood cultures drawn 06/04/17 are NGTD / sets. Qualifiers: Sepsis type: sepsis due to unspecified organism Qualified Code(s): A41.9 - Sepsis, unspecified organism (2) UTI (urinary tract infection) Status: Acute Assessment and plan: Causative organism: unclear. Urinalysis positive for nitrites, WBC, and leukocyte esterase, but no bacteria. I anticipate that the patient's symptoms may have been directly related to the removal of his ureteral stent which may have resulted in a transient bacteremia/ shedding of bacteria. Urine culture pending. CT abdomen and pelvis showed bladder stones, chronic pelvicaliectasis, and right hydroureter. Continue Rocephin 1 gram IV daily for now. Await cultures to finalize. Duration of treatment depends on the clinical picture. Qualifiers: Urinary tract infection type: acute cystitis Hematuria presence: without hematuria Qualified Code(s): N30.00 - Acute cystitis without hematuria (3) Acute metabolic encephalopathy Status: Acute Assessment and plan: Likely secondary to sepsis. CT head showed right frontal sinusitis, but was otherwise negative. Appears back to baseline. Continue to monitor closely. (4) Sinusitis Status: Acute Assessment and plan: Location: Right frontal. Patient does not report sinusitis symptoms. Causative organism unclear. Continue Rocephin 1 gram IV daily. Qualifiers: Sinusitis location: frontal Chronicity: unspecified Qualified Code(s): J32.1 - Chronic frontal sinusitis (5) MINH (acute kidney injury) Status: Acute Assessment and plan: Serum creatinine 1.53 on admission. Likely multifactorial: sepsis vs. recent urological procedure vs. ?CKD at baseline. Continue to trend. Strict I's and O's. Rocephin does not require dose-adjustment. Avoid nephrotoxins as able. (6) Diarrhea Status: Acute Assessment and plan: Likely secondary to antibiotic use. Stool panel negative. Start probiotics. Continue supportive care. Qualifiers: Diarrhea type: unspecified type Qualified Code(s): R19.7 - Diarrhea, unspecified (7) Bladder stone Status: Acute Assessment and plan: Likely secondary to recent urological procedure. Urology consulted and following. (8) Atrophic kidney Status: Acute Assessment and plan: Chronic, likely secondary to chronic distal obstruction per Urology. Urology consulted and following. If patient fails to improve, may need to consider draining kidney via PNT. (9) Morbid obesity Status: Acute (10) Atrial fibrillation Status: Chronic Qualifiers: Atrial fibrillation type: chronic Qualified Code(s): I48.2 - Chronic atrial fibrillation (11) Diabetes mellitus Status: Chronic Assessment and plan: Uncontrolled. FSBS in the 200s. Recommend aggressive glucose monitoring and control. Management per the primary team. 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 Tong is a 67 year old male with a past medical history of A. fib, diabetes diagnosed about 4 years ago currently on oral anti-hyperglycemics, hyperlipidemia, hypertension, and kidney stones status post cystoscopy with stent placement on May 12 followed by lithotripsy with basket extraction and stent exchange on May 29. The patient was admitted to the hospital June 03 for altered mental status and leukocytosis. We are consulted June 04 for further recommendations for altered mental status and leukocytosis. Briefly, the patient is a 67-year-old male with past medical history as stated above. The patient was brought to the emergency department on May 12 and was diagnosed with hydronephrosis the contrary to an obstructing ureteral stone. He only has one functioning kidney, therefore, he was taken emergently to the operating room and underwent a cystoscopy with stent placement. He had some hematuria postoperatively, but was eventually able to be discharged home on May 15. He was scheduled come back to the hospital on May 29 and he underwent a lithotripsy with basket extraction and stent exchange as an outpatient. He was discharged home after the procedure with instructions to have his pull his stent 2-3 days postoperatively. On Friday, the patient' s pulled his stent and a couple of hours later he began to spike high fevers with a MAXIMUM TEMPERATURE of 104, had chills and rigors and was confused. The patient presented to the emergency department for further evaluation. Upon arrival, the patient had a low-grade fever. He was hemodynamically stable. He did have leukocytosis with neutrophilic predominance. Other laboratory studies revealed an acute kidney injury and normal lactic acid level. His troponin was mildly elevated. Urinalysis was obtained that was positive for nitrites, small amount of leukocyte esterase, 50- 30 white cells, but no bacteria. There were many epithelial cells noted in the specimen as well. Blood cultures were obtained 2 sets. He had a chest x-ray that showed pulmonary vascular congestion and a stable right upper lobe mass that the patient states is related to a calcified nodule. CT abdomen and pelvis showed bladder stones as well as chronic pelvicaliectasis and hydroureter on the right. He had a CT of the head that showed right frontal sinusitis. Due to his allergies, he would received a dose of vancomycin and IV meropenem and he was admitted to the hospital for further evaluation. Since admission, the patient's mental status has returned to baseline. His white blood cell count is trending down. Blood cultures have returned no growth to date for out of 4 sets. Urine culture is still pending. He was started empirically on IV Rocephin 1 g daily. He does have an allergy listed to Keflex, but he seems to be tolerating the Rocephin any sort of reaction. During my exam today, the patient endorses the history as stated above. His is at the bedside while still agrees with the events as stated. He reports that he continues to have some chills, but denies any fevers or rigors since being here. He states that after his procedures he was not started on any antibiotics as he is supposed to be on doxycycline chronically per his PCP for chronic skin ulcerations to his pannus, but due to GI upset he has been unable to take it. He denies any congestion, earache, or nasal drainage. He does report a chronic sore throat for the past 6 months it been intermittent and dry and scratchy. He denies any chest pain, shortness of breath, or cough. He reports nausea, but denies any vomiting. States his appetite is not been very good. He denies abdominal pain. He does report some dysuria and trouble starting his urine stream at times. He denies any gross hematuria at this time. He does complain of some right flank pain. He reports chronic neuropathy pain to the bilateral lower extremities, but denies any acute pain at this time. He denies any oral thrush or new skin lesions. The patient was at home with his . 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 He denies any tobacco, alcohol, or illicit drug use. CC: Nestor Krishnan, DO Past Med Surg Social Fam HX - Past Medical History Attestation: Yes The following information was validated with the patient. Source: patient, old records reviewed, nursing notes reviewed Medical history: atrial fibrillation, diabetes, hyperlipidemia, hypertension, kidney stones, RA, renal disease Psychiatric history: no psych history - Past Surgical History Surgical History: cataract, cholecystectomy, colectomy, knee replacement, orthopedic, other, sinus surgery - Social History Smoking Status: Former smoker Smokeless Tobacco Status: No Alcohol use: none Drug use: none Occupational status: retired Current living situation: Home, With Family Activity Level: Independent ambulation Recent Out of Country Travel Within the Last 8 Weeks: No Exposure or Possible Exposure to Illness During Travel: No - Family History Father Living Status: Hx Family Cardiac Disorders: Yes Mother Living Status: Hx Family Cancer: Yes (Colon cancer) Hx Family Endocrine Disorder: Yes Infectious Disease-CN:Meds Aspirin [Adult Aspirin Regimen] 81 mg PO DAILY 06/03/17 [History] Betamethasone Valerate 1 appl TP PRN PRN 06/03/17 [History] Carvedilol 3.125 mg PO BID 06/03/17 [History] Doxycycline Hyclate [Vibramycin] 100 mg PO BID 06/03/17 [History] Fluticasone Propionate Nasal [Flonase] 2 spr NS DAILY 06/03/17 [History] Furosemide [Lasix] 40 mg PO DAILY 06/03/17 [History] Glimepiride [Amaryl] 2 mg PO BID 06/03/17 [History] Mupirocin [Bactroban Oint] 1 appl TP PRN PRN 06/03/17 [History] OxyCODONE/APAP 5/325 [Percocet 5/325 MG] 1 tab PO Q6HR PRN 06/03/17 [History] Pantoprazole Sodium [Protonix] 40 mg PO DAILY 06/03/17 [History] Phenazopyridine [Pyridium] 100 mg PO TID PRN 06/03/17 [History] Rivaroxaban [Xarelto] 15 mg PO QPM 06/03/17 [History] Simvastatin [Zocor] 40 mg PO HS 06/03/17 [History] Spironolactone [Aldactone] 25 mg PO BID 06/03/17 [History] Tamsulosin [Flomax] 0.4 mg PO DAILY 06/03/17 [History] Triamcinolone Acetonide 1 appl TP PRN PRN 06/03/17 [History] 3 Allergy/AdvReac Type Severity Reaction Status Date / Time cephalexin [From Keflex] Allergy Hives Verified 06/03/17 08:11 Penicillins [PCN] Allergy Hives Verified 06/03/17 08:11 Sulfa (Sulfonamide Allergy Hives Verified 06/03/17 08:11 Antibiotics) All systems: reviewed and no additional remarkable complaints except as stated Exam - Constitutional Vitals: Temp Pulse Resp BP Pulse Ox 98.4 F 86 16 103/47 93 06/04/17 15:34 06/04/17 15:34 06/04/17 15:34 06/04/17 15:34 06/04/17 15:34 General appearance: cooperative, morbidly obese, no acute distress - Head Head exam: Present: atraumatic, normal inspection, normocephalic - Eye Eye exam: Present: EOMI, normal appearance, PERRL Pupils: Present: normal accommodation - ENT ENT exam: Present: mucous membranes moist - Neck Neck exam: Present: normal inspection - Respiratory Respiratory exam: Present: CTAB. Absent: rales, respiratory distress, rhonchi, wheezes - Cardiovascular Cardiovascular exam: Present: RRR, +S1, +S2 - GI/Abdominal GI/Abdominal exam: Present: distended (obese), normal bowel sounds, soft. Absent: tenderness - Extremities Exam Extremities exam: Present: normal inspection. Absent: joint swelling, pedal edema, tenderness - Back Exam Back exam: Present: CVA tenderness (R), normal inspection. Absent: CVA tenderness (L), paraspinal tenderness, vertebral tenderness - Neurological Exam Neurological exam: Present: alert, oriented X3, no focal deficits - Psychiatric Psychiatric exam: Present: normal affect - Skin Skin exam: Present: dry, intact, normal color, warm Infectious Disease CN: Results - Labs CBC & Chem 7: 06/05/17 04:02 06/04/17 05:02 Cultures: Cultures 06/03/17 09:26 Blood Culture - Preliminary Peripheral Venipuncture No growth. 06/03/17 09:26 Blood Culture - Preliminary Peripheral Venipuncture No growth. Serology: Serology 06/04/17 06/04/17 Range/Units 12:15 01:00 Urine Color Dark Yellow (Yellow) Urine Clarity Cloudy A (Clear) Urine pH 6.0 (5.0-8.0) pH Units Ur Specific [place] 1.026 H (1.010-1.025) Urine Protein 100 H (Neg-Trace) mg/dL Urine Glucose (UA) 100 H (Normal) mg/dL Urine Ketones Negative (Negative) mg/dL Urine Blood Moderate H (Negative) Urine Nitrite Negative (Negative) Urine Bilirubin Negative (Negative) Urine Urobilinogen Normal (Normal) mg/dL Ur Leukocyte Esterase Moderate H (Negative) Urine Microscopic RBC 5-15 H (0-3) per hpf Urine Microscopic WBC TNTC H (0-3) per hpf Ur Squamous Epith Cells Moderate H (None-Few) per lpf Urine Bacteria None Seen (None-Few) per hpf Hyaline Casts None Seen (None-Few) per lpf Stl C. cayetanensis PCR Not detected (Not detect) Stool Rotavirus A PCR Not detected (Not detect) Stl Adenov F 40/41 PCR Not detected (Not detect) Stool Astrovirus (PCR) Not detected (Not detect) Stool Campylobacter PCR Not detected (Not detect) Stl C. diff Tox A/B PCR Not detected (Not detect) Stool Cryptosporidium PCR Not detected (Not detect) Stl Sh Tox Pr E STEC PCR Not detected (Not detect) Stool E coli O157 PCR Not detected (Not detect) Stl Enterotoxigenic E PCR Not detected (Not detect) Stool EPEC (PCR) Not detected (Not detect) Stool EAEC (PCR) Not detected (Not detect) Stl E. histolytica PCR Not detected (Not detect) Stool Giardia Lamblia PCR Not detected (Not detect) Stool Salmonella PCR Not detected (Not detect) Stool Sapovirus (PCR) Not detected (Not detect) Stl P. shigelloides PCR Not detected (Not detect) Stl Shigella/EIEC PCR Not detected (Not detect) St Y.enterocolitica PCR Not detected (Not detect) Stool Vibrio (PCR) Not detected (Not detect) Stl Vibrio cholerae PCR Not detected (Not detect) Stl Norovirus GI/GII PCR Not detected (Not detect) Stl GI Panel (PCR) Com See below Consult Discharge Plan - Plan Referrals: Jim Smith MD [Primary Care Provider] -
[2017-06-04] MEDS: Lactobacillus 1 EACH CAP.SPRINK PO SCH (17:08)
[2017-06-04] MEDS: *HR* Rivaroxaban 10 MG TABLET PO SCH (17:09)
[2017-06-04] MEDS: Acetaminophen 325 MG TABLET PO PRN (22:07)
[2017-06-05 04:26] LABS: Basophils % 0.5 %; Eosinophils # 0.1 K/mcL (0.0-0.6); Eosinophils % 0.6 %; Hematocrit 35.2 % (37.5-50.1); Hemoglobin 11.3 g/dL (12.9-16.9); Immature Granulocytes % 0.6 % (0-4); Lymphocytes # 1.1 K/mcL (0.6-4.6); Lymphocytes % 12.8 %; Mean Corpuscular HGB Conc 32.1 g/dL (31.6-35.5); Mean Corpuscular Hemoglobin 28.4 pg (28.0-33.3); Mean Corpuscular Volume 88.4 fL (83.0-100.0); Mean Platelet Volume 12.7 fL (9.4-12.4); Monocytes # 1.3 K/mcL (0.0-1.3); Monocytes % 14.9 %; Neutrophils # 6.2 K/mcL (1.6-8.9); Red Blood Count 3.98 M/mcL (4.19-5.50); Red Cell Distribution Width 12.4 % (11.5-14.5); Segmented Neutrophils % 70.6 %
[2017-06-05 04:27] LABS: Platelet Count 86 K/mcL (140-400)
[2017-06-05 04:50] LABS: Magnesium 1.5 mg/dL (1.6-2.6)
[2017-06-05] MEDS: *HR* OxyCODONE/APAP 5/325 TABLET PO PRN ×3 (06:01→16:57)
[2017-06-05] MEDS: Insulin LISPRO 300 UNITS/3 ML VIAL SQ SCH ×4 (08:19→20:51)
[2017-06-05] MEDS: Spironolactone 25 MG TABLET PO SCH ×2 (08:20→20:50)
[2017-06-05] MEDS: Aspirin Enteric Coated 81 MG Tablet PO SCH (08:20)
[2017-06-05] MEDS: cefTRIAXone 1,000 MG in Water for inj. (sterile) 20 ML 10 ML IVP SCH (08:20)
[2017-06-05] MEDS: Lactobacillus 1 EACH CAP.SPRINK PO SCH (08:20)
[2017-06-05] MEDS: Magnesium Oxide 400 MG TABLET PO SCH (08:21)
[2017-06-05] MEDS: Fluticasone Propionate Nasal 50 MCG/SPRAY BOTTLE NS SCH (08:22)
[2017-06-05 09:07] LABS: BUN/Creatinine Ratio 15 (6-26); Blood Urea Nitrogen 17 mg/dL (8-23); Calcium 7.6 mg/dL (8.6-10.3); Carbon Dioxide 20 mEq/L (23-29); Chloride 104 mEq/L (98-107); Glucose 211 mg/dL (70-105); Osmolality,Calculated 282 (280-300); Potassium 3.6 mEq/L (3.5-5.1); Sodium 132 mEq/L (136-145); eGFR For African Americans > 60 (> 60); eGFR For Non-African Americans > 60 (> 60)
--- NOTE | 2017-06-05 13:13 | Infectious Disease Progress No ---
Date of Encounter: 06/05/17 Time of Encounter: 13:11 - Assessment and Plan (1) Sepsis Current Visit: Yes Status: Acute The patient had two SIRS criteria with fever at home and leukocytosis. Source likely UTI and sinusitis. Improved. Afebrile overnight. WBC normalized. Blood cultures drawn 06/04/17 are NGTD 4/4 sets. Qualifiers: Sepsis type: sepsis due to unspecified organism Qualified Code(s): A41.9 - Sepsis, unspecified organism (2) UTI (urinary tract infection) Current Visit: Yes Status: Acute Causative organism: Enterococcus and GNR. Urinalysis positive for nitrites, WBC, and leukocyte esterase, but no bacteria. I anticipate that the patient's symptoms may have been directly related to the removal of his ureteral stent which may have resulted in a transient bacteremia/ shedding of bacteria. CT abdomen and pelvis showed bladder stones, chronic pelvicaliectasis, and right hydroureter. Continue Rocephin 1 gram IV daily for now. Start Vancomycin IV. Pharmacy to dose. Goal trough ~15. Await cultures to finalize and for sensitivities. Duration of treatment depends on the clinical picture. Monitor renal function and for drug toxicity and dose-adjust antibiotics. Qualifiers: Urinary tract infection type: acute cystitis Hematuria presence: without hematuria Qualified Code(s): N30.00 - Acute cystitis without hematuria (3) Acute metabolic encephalopathy Current Visit: Yes Status: Acute Likely secondary to sepsis. CT head showed right frontal sinusitis, but was otherwise negative. Appears back to baseline. Continue to monitor closely. (4) Sinusitis Current Visit: Yes Status: Acute Location: Right frontal. Patient does not report sinusitis symptoms. Causative organism unclear. Continue Rocephin 1 gram IV daily. Duration of treatment depends on the clinical picture. Qualifiers: Sinusitis location: frontal Chronicity: unspecified Qualified Code(s): J32.1 - Chronic frontal sinusitis (5) MINH (acute kidney injury) Current Visit: Yes Status: Resolved Serum creatinine 1.53 on admission. Likely multifactorial: sepsis vs. recent urological procedure vs. ?CKD at baseline. Improved. Continue to trend. Strict I's and O's. Rocephin does not require dose-adjustment. Monitor Vanc troughs closely. Avoid nephrotoxins as able. (6) Diarrhea Current Visit: Yes Status: Acute Likely secondary to antibiotic use. Stool panel negative. Continue probiotics. Continue supportive care. Qualifiers: Diarrhea type: unspecified type Qualified Code(s): R19.7 - Diarrhea, unspecified (7) Bladder stone Current Visit: Yes Status: Acute Likely secondary to recent urological procedure. Urology consulted and following. (8) Atrophic kidney Current Visit: Yes Status: Acute Chronic, likely secondary to chronic distal obstruction per Urology. Urology consulted and following. If patient fails to improve, may need to consider draining kidney via PNT. (9) Morbid obesity Current Visit: Yes Status: Acute (10) Atrial fibrillation Current Visit: Yes Status: Chronic Qualifiers: Atrial fibrillation type: chronic Qualified Code(s): I48.2 - Chronic atrial fibrillation (11) Diabetes mellitus Current Visit: No Status: Chronic Uncontrolled. FSBS in the 200s. Recommend aggressive glucose monitoring and control. Management per the primary team. 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 No acute events noted overnight. Should states that overall he feels a little better this morning. He reports frontal headache and some bloody nasal discharge. He denies any back or neck pain. He reports chills yesterday, but states those seem to have resolved. Denies any fevers or rigors. Denies any chest pain, shortness of breath, or cough. Denies any nausea or vomiting. States diarrhea is better. States he was able to eat most of his breakfast. Denies any urinary complaints. Reports chronic bilateral leg pain. Denies any oral thrush or new skin lesions. Infect Dis PN-Objective Data - Labs CBC & Chem 7: 06/05/17 04:02 06/05/17 04:02 Labs: Laboratory Results - last 24 hr 06/04/17 06/05/17 06/05/17 15:54 04:02 04:02 WBC 8.8 RBC 3.98 L Hgb 11.3 L Hct 35.2 L MCV 88.4 MCH 28.4 MCHC 32.1 RDW 12.4 Plt Count 86 L MPV 12.7 H Immature Gran % 0.6 Seg Neutrophils % 70.6 Lymphocytes % 12.8 Monocytes % 14.9 Eosinophils % 0.6 Basophils % 0.5 Neutrophils # 6.2 Lymphocytes # 1.1 Monocytes # 1.3 Eosinophils # 0.1 Basophils # 0.0 Sodium 132 L Potassium 3.6 Chloride 104 Carbon Dioxide 20 L BUN 17 Creatinine 1.15 Est GFR ( Amer) > 60 Est GFR (Non-Af Amer) > 60 BUN/Creatinine Ratio 15 Glucose 211 H POC Glucose 242 H Calculated Osmolality 282 Calcium 7.6 L Magnesium 1.5 L 06/05/17 06/05/17 07:29 12:08 WBC RBC Hgb Hct MCV MCH MCHC RDW Plt Count MPV Immature Gran % Seg Neutrophils % Lymphocytes % Monocytes % Eosinophils % Basophils % Neutrophils # Lymphocytes # Monocytes # Eosinophils # Basophils # Sodium Potassium Chloride Carbon Dioxide BUN Creatinine Est GFR ( Amer) Est GFR (Non-Af Amer) BUN/Creatinine Ratio Glucose POC Glucose 232 H 199 H Calculated Osmolality Calcium Magnesium Cultures: Cultures 06/03/17 09:26 Blood Culture - Preliminary Peripheral Venipuncture No growth. 06/03/17 09:26 Blood Culture - Preliminary Peripheral Venipuncture No growth. Serology 06/04/17 06/04/17 Range/Units 12:15 01:00 Urine Color Dark Yellow (Yellow) Urine Clarity Cloudy A (Clear) Urine pH 6.0 (5.0-8.0) pH Units Ur Specific [place] 1.026 H (1.010-1.025) Urine Protein 100 H (Neg-Trace) mg/dL Urine Glucose (UA) 100 H (Normal) mg/dL Urine Ketones Negative (Negative) mg/dL Urine Blood Moderate H (Negative) Urine Nitrite Negative (Negative) Urine Bilirubin Negative (Negative) Urine Urobilinogen Normal (Normal) mg/dL Ur Leukocyte Esterase Moderate H (Negative) Urine Microscopic RBC 5-15 H (0-3) per hpf Urine Microscopic WBC TNTC H (0-3) per hpf Ur Squamous Epith Cells Moderate H (None-Few) per lpf Urine Bacteria None Seen (None-Few) per hpf Hyaline Casts None Seen (None-Few) per lpf Stl C. cayetanensis PCR Not detected (Not detect) Stool Rotavirus A PCR Not detected (Not detect) Stl Adenov F 40/41 PCR Not detected (Not detect) Stool Astrovirus (PCR) Not detected (Not detect) Stool Campylobacter PCR Not detected (Not detect) Stl C. diff Tox A/B PCR Not detected (Not detect) Stool Cryptosporidium PCR Not detected (Not detect) Stl Sh Tox Pr E STEC PCR Not detected (Not detect) Stool E coli O157 PCR Not detected (Not detect) Stl Enterotoxigenic E PCR Not detected (Not detect) Stool EPEC (PCR) Not detected (Not detect) Stool EAEC (PCR) Not detected (Not detect) Stl E. histolytica PCR Not detected (Not detect) Stool Giardia Lamblia PCR Not detected (Not detect) Stool Salmonella PCR Not detected (Not detect) Stool Sapovirus (PCR) Not detected (Not detect) Stl P. shigelloides PCR Not detected (Not detect) Stl Shigella/EIEC PCR Not detected (Not detect) St Y.enterocolitica PCR Not detected (Not detect) Stool Vibrio (PCR) Not detected (Not detect) Stl Vibrio cholerae PCR Not detected (Not detect) Stl Norovirus GI/GII PCR Not detected (Not detect) Stl GI Panel (PCR) Com See below Exam - Constitutional Vitals: Temp Pulse Resp BP Pulse Ox 97.9 F 63 21 121/69 92 06/05/17 12:00 06/05/17 07:00 06/05/17 07:00 06/05/17 07:00 06/05/17 08:39 General appearance: cooperative, morbidly obese, no acute distress - Head Head exam: Present: atraumatic, normal inspection, normocephalic - Eye Eye exam: Present: EOMI, normal appearance, PERRL Pupils: Present: normal accommodation - ENT ENT exam: Present: mucous membranes moist Additional comments: Frontal sinus tenderness noted. - Neck Neck exam: Present: normal inspection. Absent: meningismus - Respiratory Respiratory exam: Present: CTAB. Absent: rales, respiratory distress, rhonchi, wheezes - Cardiovascular Cardiovascular exam: Present: RRR, +S1, +S2 - GI/Abdominal GI/Abdominal exam: Present: normal bowel sounds, soft. Absent: distended, tenderness - Extremities Exam Extremities exam: Present: normal inspection. Absent: joint swelling, pedal edema, tenderness - Back Exam Back exam: Present: CVA tenderness (R). Absent: paraspinal tenderness, vertebral tenderness - Neurological Exam Neurological exam: Present: alert, oriented X3, no focal deficits - Psychiatric Psychiatric exam: Present: normal affect, normal mood - Skin Skin exam: Present: dry, intact, normal color, warm Consult Discharge Plan - Plan Referrals: Jim Smith MD [Primary Care Provider] -
--- NOTE | 2017-06-05 14:52 | Internal Med Progress Note ---
<Giovanny Babcock - Last Filed: 06/05/17 14:46> Date of Encounter: 06/05/17 Time of Encounter: 08:30 - Assessment and plan (1) Atrial fibrillation Current Visit: Yes Status: Chronic Assessment and plan: on xarelto. controlled on Coreg. - HR goal <100 Qualifiers: Atrial fibrillation type: chronic Qualified Code(s): I48.2 - Chronic atrial fibrillation (2) Diabetes mellitus Current Visit: Yes Status: Chronic Assessment and plan: Currently on SSI Medium. If BG is elevated tomorrow will increase. elevate BG most likely due to hx of DM and in the setting of current illness Qualifiers: Diabetes mellitus type: type 2 Diabetes mellitus long term care pharmacist insulin use: without jail use Diabetes mellitus complication status: with other specified complication Qualified Code(s): E11.69 - Type 2 diabetes mellitus with other specified complication (3) Leukocytosis Current Visit: Yes Status: Acute Assessment and plan: no leukocytosis today. Qualifiers: Leukocytosis type: bandemia Qualified Code(s): D72.825 - Bandemia (4) MINH (acute kidney injury) Current Visit: Yes Status: Resolved Assessment and plan: MINH on CKD. Positive U/A. cx pending. MINH most likely resolved at this point - continue IVF - renal diet - urology consulted - continue abx - continue to monitor renal function - strict I/O - AM labs (5) Elevated troponin Current Visit: Yes Status: Acute Assessment and plan: will continue to trend trops (6) UTI (urinary tract infection) Current Visit: Yes Status: Acute Assessment and plan: U/A + for leuk and nitrites. - continue rocephin - cx pending Qualifiers: Urinary tract infection type: acute cystitis Hematuria presence: without hematuria Qualified Code(s): N30.00 - Acute cystitis without hematuria (7) Morbid obesity Current Visit: Yes Status: Acute Assessment and plan: chronic, counseled patient on wait lost, to be followed up outpatient (8) DVT prophylaxis Current Visit: Yes Status: Acute Assessment and plan: already on xarelot (9) Hypomagnesemia Current Visit: Yes Status: Acute Assessment and plan: Mg low today. replaced orally. Will recheck in the AM (10) Acute metabolic encephalopathy Current Visit: Yes Status: Acute Assessment and plan: most likely resolved - Time Spent With Patient Total time spent is greater than 50% in coordination of care (as documented) at patient's floor/unit and/or counseling patient: - Subjective Interval history: MR Tong is seen and evaluated. Patient reports feeling sweaty, and "hypotensive " last night, but according to chart review, symptoms correlate with timing of percocet administration. Today patient states symptoms have resolved, and is feeling better. Patient denies chest pain, sob, fever, nausea, vomiting. - Constitutional Vitals: Temp Pulse Resp BP Pulse Ox 97.9 F 63 21 121/69 92 06/05/17 12:00 06/05/17 07:00 06/05/17 07:00 06/05/17 07:00 06/05/17 08:39 General appearance: Present: mild distress, A&O X 3, morbidly obese, answers questions appropriately - ENT ENT exam: Present: mucous membranes moist - Respiratory Respiratory exam: Present: prolonged expiratory phase - Cardiovascular Cardiovascular exam: Present: RRR - Extremities Exam Extremities exam: Absent: pedal edema Internal Medicine: Result - Labs CBC & Chem 7: 06/05/17 04:02 06/05/17 04:02 Labs: Short CBC 06/05/17 Range/Units 04:02 WBC 8.8 (4.3-11.1) K/mcL Hgb 11.3 L (12.9-16.9) g/dL Hct 35.2 L (37.5-50.1) % Plt Count 86 L (140-400) K/mcL Neutrophils # 6.2 (1.6-8.9) K/mcL BMP 06/05/17 04:02 Sodium 132 L Potassium 3.6 Chloride 104 Carbon Dioxide 20 L BUN 17 Creatinine 1.15 Glucose 211 H Calcium 7.6 L - ABG Interpretation ABG results: PT/INR, D-dimer PT 30.3 Seconds (9.4-12.1) H 06/03/17 06:05 Consult Discharge Plan - Plan Referrals: Jim Smith MD [Primary Care Provider] - <Nestor Krishnan - Last Filed: 06/05/17 18:59> Date of Encounter: 06/05/17 - Assessment and plan (1) UTI (urinary tract infection) Current Visit: Yes Status: Acute Qualifiers: Urinary tract infection type: acute cystitis Hematuria presence: without hematuria Qualified Code(s): N30.00 - Acute cystitis without hematuria (2) Acute metabolic encephalopathy Current Visit: Yes Status: Resolved (3) Atrial fibrillation Current Visit: Yes Status: Chronic Qualifiers: Atrial fibrillation type: chronic Qualified Code(s): I48.2 - Chronic atrial fibrillation (4) Diabetes mellitus Current Visit: Yes Status: Chronic Qualifiers: Diabetes mellitus type: type 2 Diabetes mellitus long term care pharmacist insulin use: without jail use Diabetes mellitus complication status: with other specified complication Qualified Code(s): E11.69 - Type 2 diabetes mellitus with other specified complication (5) Leukocytosis Current Visit: Yes Status: Resolved Qualifiers: Leukocytosis type: bandemia Qualified Code(s): D72.825 - Bandemia (6) MINH (acute kidney injury) Current Visit: Yes Status: Resolved (7) Elevated troponin Current Visit: Yes Status: Acute (8) Morbid obesity Current Visit: Yes Status: Chronic (9) Hypomagnesemia Current Visit: Yes Status: Acute (10) DVT prophylaxis Current Visit: Yes Status: Acute - Time Spent With Patient Total time spent is greater than 50% in coordination of care (as documented) at patient's floor/unit and/or counseling patient: - Constitutional Vitals: Temp Pulse Resp BP Pulse Ox 98.4 F 68 16 118/76 95 06/05/17 15:51 06/05/17 15:51 06/05/17 15:51 06/05/17 15:51 06/05/17 15:51 Internal Medicine: Result - Labs CBC & Chem 7: 06/05/17 04:02 06/05/17 04:02 Labs: Short CBC 06/05/17 Range/Units 04:02 WBC 8.8 (4.3-11.1) K/mcL Hgb 11.3 L (12.9-16.9) g/dL Hct 35.2 L (37.5-50.1) % Plt Count 86 L (140-400) K/mcL Neutrophils # 6.2 (1.6-8.9) K/mcL BMP 06/05/17 04:02 Sodium 132 L Potassium 3.6 Chloride 104 Carbon Dioxide 20 L BUN 17 Creatinine 1.15 Glucose 211 H Calcium 7.6 L - ABG Interpretation ABG results: PT/INR, D-dimer PT 30.3 Seconds (9.4-12.1) H 06/03/17 06:05 - Attending Attestation I examined this patient and my medical decision-making was reviewed with the Resident Physician on 06/05/17. I agree with the documented findings, disposition and treatment plan as described except to the extent set forth below. Mr Tong is currently admitted for sepsis related to UTI. He remains moderate to high risk due to potential for worsening clinical status. Mr Tong is a little better. He has no appetite. Low grade fever last night. No further chills. No GI issues. Exam alert Comfortable Mucus membranes dry Heart distant and regular Lungs diminished Abd soft I/P 1. Sepsis 2. UTI with enterococcus Further diagnoses and plan as above.
--- NOTE | 2017-06-05 16:13 | Urology Progress Note ---
Date of Encounter: 06/05/17 Time of Encounter: 16:11 - Assessment and Plan (1) Atrophic kidney Current Visit: Yes Status: Acute (2) MINH (acute kidney injury) Current Visit: Yes Status: Resolved Assessment and plan: resolved (3) Leukocytosis Current Visit: Yes Status: Acute Assessment and plan: resolved Qualifiers: Leukocytosis type: bandemia Qualified Code(s): D72.825 - Bandemia (4) UTI (urinary tract infection) Current Visit: Yes Status: Acute Assessment and plan: continue with broad abx until cultures return. call with any questions. Qualifiers: Urinary tract infection type: acute cystitis Hematuria presence: without hematuria Qualified Code(s): N30.00 - Acute cystitis without hematuria (5) Bladder stone Current Visit: Yes Status: Acute Progress Note Narrative: Patient seen. feeling slightly better. ucx +. awaiting sensitivities. Objective Initial Vital Signs Temp Pulse Resp BP Pulse Ox 99.4 F 88 18 123/98 93 06/03/17 05:23 06/03/17 05:23 06/03/17 05:23 06/03/17 05:23 06/03/17 05:23 - General physical appearance Present: well developed, well nourished - Respiratory Present: normal expansion, normal respiratory effort - Abdomen Present: soft - Labs 06/05/17 04:02 06/05/17 04:02 Diabetes panel 06/05/17 Range/Units 04:02 Sodium 132 L (136-145) mEq/L Potassium 3.6 (3.5-5.1) mEq/L Chloride 104 (98-107) mEq/L Carbon Dioxide 20 L (23-29) mEq/L BUN 17 (8-23) mg/dL Creatinine 1.15 (0.70-1.30) mg/dL Glucose 211 H (70-105) mg/dL Calcium 7.6 L (8.6-10.3) mg/dL Calcium panel 06/05/17 Range/Units 04:02 Calcium 7.6 L (8.6-10.3) mg/dL Pituitary panel 06/05/17 Range/Units 04:02 Sodium 132 L (136-145) mEq/L Potassium 3.6 (3.5-5.1) mEq/L Chloride 104 (98-107) mEq/L Carbon Dioxide 20 L (23-29) mEq/L BUN 17 (8-23) mg/dL Creatinine 1.15 (0.70-1.30) mg/dL Glucose 211 H (70-105) mg/dL Calcium 7.6 L (8.6-10.3) mg/dL Adrenal panel 06/05/17 Range/Units 04:02 Sodium 132 L (136-145) mEq/L Potassium 3.6 (3.5-5.1) mEq/L Chloride 104 (98-107) mEq/L Carbon Dioxide 20 L (23-29) mEq/L BUN 17 (8-23) mg/dL Creatinine 1.15 (0.70-1.30) mg/dL Glucose 211 H (70-105) mg/dL Calcium 7.6 L (8.6-10.3) mg/dL Consult Discharge Plan - Plan Referrals: Jim Smith MD [Primary Care Provider] -
[2017-06-05] MEDS: *HR* Rivaroxaban 10 MG TABLET PO SCH (16:57)
[2017-06-05] MEDS ORDERED: Aminoglycoside Consult 1 EACH MC ONE (17:57)
[2017-06-05] MEDS ORDERED: Insulin DETEMIR 100 UNIT/ML X5UNITS SQ SCH (21:00)
[2017-06-06] MEDS: *HR* OxyCODONE/APAP 5/325 TABLET PO PRN ×3 (01:54→17:26)
[2017-06-06 04:58] LABS: Hematocrit 35.1 % (37.5-50.1); Hemoglobin 11.5 g/dL (12.9-16.9); Immature Platelets 16.4 % (1.1-6.1); Mean Corpuscular HGB Conc 32.8 g/dL (31.6-35.5); Mean Corpuscular Hemoglobin 28.5 pg (28.0-33.3); Mean Corpuscular Volume 86.9 fL (83.0-100.0); Mean Platelet Volume 12.8 fL (9.4-12.4); Red Blood Count 4.04 M/mcL (4.19-5.50); Red Cell Distribution Width 12.3 % (11.5-14.5)
[2017-06-06 05:18] LABS: BUN/Creatinine Ratio 13 (6-26); Blood Urea Nitrogen 14 mg/dL (8-23); Calcium 7.8 mg/dL (8.6-10.3); Carbon Dioxide 20 mEq/L (23-29); Chloride 104 mEq/L (98-107); Glucose 189 mg/dL (70-105); Osmolality,Calculated 280 (280-300); Potassium 3.7 mEq/L (3.5-5.1); Sodium 132 mEq/L (136-145); eGFR For African Americans > 60 (> 60); eGFR For Non-African Americans > 60 (> 60)
[2017-06-06] MEDS: Magnesium Oxide 400 MG TABLET PO SCH (08:12)
[2017-06-06] MEDS: Fluticasone Propionate Nasal 50 MCG/SPRAY BOTTLE NS SCH (08:12)
[2017-06-06] MEDS: Aspirin Enteric Coated 81 MG Tablet PO SCH (08:13)
[2017-06-06] MEDS: Spironolactone 25 MG TABLET PO SCH (08:13)
[2017-06-06] MEDS: cefTRIAXone 1,000 MG in Water for inj. (sterile) 20 ML 10 ML IVP SCH (08:13)
[2017-06-06] MEDS: Lactobacillus 1 EACH CAP.SPRINK PO SCH (08:13)
[2017-06-06] MEDS: Insulin LISPRO 300 UNITS/3 ML VIAL SQ SCH ×3 (08:13→17:26)
--- NOTE | 2017-06-06 10:30 | Infectious Disease Progress No ---
Date of Encounter: 06/06/17 Time of Encounter: 10:28 - Assessment and Plan (1) Sepsis Current Visit: Yes Status: Acute The patient had two SIRS criteria with fever at home and leukocytosis. Source likely UTI and sinusitis. Improved. Afebrile overnight. WBC normalized. Blood cultures drawn 06/04/17 are NGTD 4/ sets. Qualifiers: Sepsis type: sepsis due to unspecified organism Qualified Code(s): A41.9 - Sepsis, unspecified organism (2) UTI (urinary tract infection) Current Visit: Yes Status: Acute Causative organism: Enterococcus and E. coli. Urinalysis positive for nitrites, WBC, and leukocyte esterase, but no bacteria. I anticipate that the patient's symptoms may have been directly related to the removal of his ureteral stent which may have resulted in a transient bacteremia/ shedding of bacteria. CT abdomen and pelvis showed bladder stones, chronic pelvicaliectasis, and right hydroureter. Continue Rocephin 1 gram IV daily for now for sinusitis. Discontinue Vancomycin. Start Nitrofurantoin 100mg PO BID. Duration of treatment depends on the clinical picture, but likely 10 days. Monitor renal function and dose-adjust antibiotics. Qualifiers: Urinary tract infection type: acute cystitis Hematuria presence: without hematuria Qualified Code(s): N30.00 - Acute cystitis without hematuria (3) Acute metabolic encephalopathy Current Visit: Yes Status: Resolved Likely secondary to sepsis. CT head showed right frontal sinusitis, but was otherwise negative. Appears back to baseline. Continue to monitor closely. (4) Sinusitis Current Visit: Yes Status: Acute Location: Right frontal. Patient does not report sinusitis symptoms. Causative organism unclear. Continue Rocephin 1 gram IV daily. Duration of treatment depends on the clinical picture, but likely a total of 14 days. Can switch to PO doxycycline when ready for discharge to complete course of treatment. Pain management per the primary team. Qualifiers: Sinusitis location: frontal Chronicity: unspecified Qualified Code(s): J32.1 - Chronic frontal sinusitis (5) MINH (acute kidney injury) Current Visit: Yes Status: Resolved Serum creatinine 1.53 on admission. Likely multifactorial: sepsis vs. recent urological procedure vs. ?CKD at baseline. Resolved. Continue to trend. Strict I's and O's. Avoid nephrotoxins as able. (6) Diarrhea Current Visit: Yes Status: Acute Likely secondary to antibiotic use. Stool panel negative. Improved. Continue probiotics. Continue supportive care. Qualifiers: Diarrhea type: unspecified type Qualified Code(s): R19.7 - Diarrhea, unspecified (7) Bladder stone Current Visit: Yes Status: Acute Likely secondary to recent urological procedure. Urology consulted and following. (8) Atrophic kidney Current Visit: Yes Status: Acute Chronic, likely secondary to chronic distal obstruction per Urology. Urology consulted and following. If patient fails to improve, may need to consider draining kidney via PNT. (9) Morbid obesity Current Visit: Yes Status: Chronic (10) Atrial fibrillation Current Visit: Yes Status: Chronic Qualifiers: Atrial fibrillation type: chronic Qualified Code(s): I48.2 - Chronic atrial fibrillation (11) Diabetes mellitus Current Visit: Yes Status: Chronic Uncontrolled. FSBS in the 200s. Recommend aggressive glucose monitoring and control. Management per the primary team. Qualifiers: Diabetes mellitus type: type 2 Diabetes mellitus detention insulin use: without intermodal customer service use Diabetes mellitus complication status: with other specified complication Qualified Code(s): E11.69 - Type 2 diabetes mellitus with other specified complication - Subjective Interval history: Patient seen and examined. No acute events noted overnight. States that overall he feels a little better this morning. He reports frontal headache continues, worse with movement and makes his neck feel tight. Reports some dizziness when changing position too frequently. He denies any back or neck pain. He denies fevers, chills, or rigors. Denies any chest pain, shortness of breath, or cough. Denies any nausea or vomiting. States diarrhea has resolved. States he was able to eat most of his breakfast. Denies any urinary complaints. Reports chronic bilateral leg pain and lower back pain. Denies any oral thrush or new skin lesions. Infect Dis PN-Objective Data - Labs CBC & Chem 7: 06/06/17 04:16 06/06/17 04:16 Labs: Laboratory Results - last 24 hr 06/05/17 06/05/17 06/05/17 00:07 12:08 15:54 WBC RBC Hgb Hct MCV MCH MCHC RDW Plt Count MPV Immature Plt Fraction Sodium Potassium Chloride Carbon Dioxide BUN Creatinine Est GFR ( Amer) Est GFR (Non-Af Amer) BUN/Creatinine Ratio Glucose POC Glucose 194 H 199 H 255 H Calculated Osmolality Calcium Magnesium 04/12/18 04/13/18 04/13/18 20:04 04:16 04:16 WBC 7.7 RBC 4.04 L Hgb 11.5 L Hct 35.1 L MCV 86.9 MCH 28.5 MCHC 32.8 RDW 12.3 Plt Count 85 L MPV 12.8 H Immature Plt Fraction 16.4 H Sodium 132 L Potassium 3.7 Chloride 104 Carbon Dioxide 20 L BUN 14 Creatinine 1.07 Est GFR ( Amer) > 60 Est GFR (Non-Af Amer) > 60 BUN/Creatinine Ratio 13 Glucose 189 H POC Glucose 258 H Calculated Osmolality 280 Calcium 7.8 L Magnesium 06/06/17 04:16 WBC RBC Hgb Hct MCV MCH MCHC RDW Plt Count MPV Immature Plt Fraction Sodium Potassium Chloride Carbon Dioxide BUN Creatinine Est GFR ( Amer) Est GFR (Non-Af Amer) BUN/Creatinine Ratio Glucose POC Glucose Calculated Osmolality Calcium Magnesium 1.4 L Cultures: Cultures 06/03/17 09:26 Blood Culture - Preliminary Peripheral Venipuncture No growth. 06/03/17 09:26 Blood Culture - Preliminary Peripheral Venipuncture No growth. Serology 06/04/17 06/04/17 Range/Units 12:15 01:00 Urine Color Dark Yellow (Yellow) Urine Clarity Cloudy A (Clear) Urine pH 6.0 (5.0-8.0) pH Units Ur Specific [place] 1.026 H (1.010-1.025) Urine Protein 100 H (Neg-Trace) mg/dL Urine Glucose (UA) 100 H (Normal) mg/dL Urine Ketones Negative (Negative) mg/dL Urine Blood Moderate H (Negative) Urine Nitrite Negative (Negative) Urine Bilirubin Negative (Negative) Urine Urobilinogen Normal (Normal) mg/dL Ur Leukocyte Esterase Moderate H (Negative) Urine Microscopic RBC 5-15 H (0-3) per hpf Urine Microscopic WBC TNTC H (0-3) per hpf Ur Squamous Epith Cells Moderate H (None-Few) per lpf Urine Bacteria None Seen (None-Few) per hpf Hyaline Casts None Seen (None-Few) per lpf Stl C. cayetanensis PCR Not detected (Not detect) Stool Rotavirus A PCR Not detected (Not detect) Stl Adenov F 40/41 PCR Not detected (Not detect) Stool Astrovirus (PCR) Not detected (Not detect) Stool Campylobacter PCR Not detected (Not detect) Stl C. diff Tox A/B PCR Not detected (Not detect) Stool Cryptosporidium PCR Not detected (Not detect) Stl Sh Tox Pr E STEC PCR Not detected (Not detect) Stool E coli O157 PCR Not detected (Not detect) Stl Enterotoxigenic E PCR Not detected (Not detect) Stool EPEC (PCR) Not detected (Not detect) Stool EAEC (PCR) Not detected (Not detect) Stl E. histolytica PCR Not detected (Not detect) Stool Giardia Lamblia PCR Not detected (Not detect) Stool Salmonella PCR Not detected (Not detect) Stool Sapovirus (PCR) Not detected (Not detect) Stl P. shigelloides PCR Not detected (Not detect) Stl Shigella/EIEC PCR Not detected (Not detect) St Y.enterocolitica PCR Not detected (Not detect) Stool Vibrio (PCR) Not detected (Not detect) Stl Vibrio cholerae PCR Not detected (Not detect) Stl Norovirus GI/GII PCR Not detected (Not detect) Stl GI Panel (PCR) Com See below Exam - Constitutional Vitals: Temp Pulse Resp BP Pulse Ox 97.7 F 65 18 127/66 97 06/06/17 06:59 06/06/17 06:59 06/06/17 06:59 06/06/17 06:59 06/06/17 06:59 General appearance: cooperative, morbidly obese, no acute distress - Head Head exam: Present: atraumatic, normal inspection, normocephalic Additional comments: Tenderness noted with palpation of the bilateral frontal sinuses. - Eye Eye exam: Present: EOMI, normal appearance, PERRL Pupils: Present: normal accommodation - ENT ENT exam: Present: mucous membranes moist - Neck Neck exam: Present: normal inspection. Absent: meningismus - Respiratory Respiratory exam: Present: CTAB. Absent: rales, respiratory distress, rhonchi, wheezes - Cardiovascular Cardiovascular exam: Present: RRR, +S1, +S2 - GI/Abdominal GI/Abdominal exam: Present: distended (obese), normal bowel sounds, soft. Absent: tenderness - Extremities Exam Extremities exam: Present: normal inspection. Absent: joint swelling, pedal edema, tenderness - Back Exam Back exam: Present: normal inspection, paraspinal tenderness (Right lumbar spine ). Absent: CVA tenderness (L), CVA tenderness (R) - Neurological Exam Neurological exam: Present: alert, oriented X3, no focal deficits - Psychiatric Psychiatric exam: Present: normal affect, normal mood - Skin Skin exam: Present: dry, intact, normal color, warm Consult Discharge Plan - Plan Referrals: Jim Smith MD [Primary Care Provider] -
[2017-06-06 11:32] VITALS: BP 113/96
--- NOTE | 2017-06-06 11:34 | Discharge Summary ---
<Giovanny Babcock - Last Filed: 06/06/17 11:32> Orders not resulted at time of discharge: Pending orders 06/03/17 09:26 Culture,Blood [BC] Routine Date of Encounter: 06/06/17 Time of Encounter: 11:32 - Discharge Diagnosis (1) Atrial fibrillation Priority: Secondary Status: Chronic Qualifiers: Atrial fibrillation type: chronic Qualified Code(s): I48.2 - Chronic atrial fibrillation (2) Diabetes mellitus Priority: Secondary Status: Chronic Qualifiers: Diabetes mellitus type: type 2 Diabetes mellitus oysterman insulin use: without long-term use Diabetes mellitus complication status: with other specified complication Qualified Code(s): E11.69 - Type 2 diabetes mellitus with other specified complication (3) Leukocytosis Priority: Secondary Status: Resolved Qualifiers: Leukocytosis type: bandemia Qualified Code(s): D72.825 - Bandemia (4) MINH (acute kidney injury) Priority: Secondary Status: Resolved (5) Elevated troponin Priority: Secondary Status: Acute (6) UTI (urinary tract infection) Priority: Primary Status: Acute Qualifiers: Urinary tract infection type: acute cystitis Hematuria presence: without hematuria Qualified Code(s): N30.00 - Acute cystitis without hematuria (7) Morbid obesity Priority: Secondary Status: Chronic (8) DVT prophylaxis Priority: Secondary Status: Acute (9) Hypomagnesemia Priority: Secondary Status: Acute (10) Acute metabolic encephalopathy Priority: Secondary Status: Resolved Hospital course: Mr. Tong is a 67 year old male w/ pmh of recurrent renal calculi and stent placement 5 days prior to admission. Patient presented with AMS, weakness, and back pain. Urology was consulted immediately on admission. Patient was found to be in MINH, was started on IVF, and recovered. For suspected UTI, patient was started on rocephin. Infectious disease saw patient and recommended macrobid. Patient remained A+Ox3 during hospitalization. On the 2nd night of hospitalization developed fever, tachycardia, and mildly hypotensive. Patient was stable after that episode, and the episode was 30 min after percocet was given. Patient also has complaints of sinus pain, infectious disease recommended doxycycline. Patient is discharged with 10 days of macrobid and 14 days of doxycycline. Discharge discussed with: patient Time spent discussing smoking cessation with patient: more than 10 minutes - Time Spent with Patient Total time spent providing and/or coordinating discharge services: Greater than 30 minutes - Discharge Medications Prescriptions: Doxycycline Hyclate [Vibramycin] 100 mg PO BID 14 Days #28 capsule Levofloxacin [Levaquin] 500 mg PO DAILY 5 Days #5 tablet Nitrofurantoin (BID) [Macrobid] 100 mg PO BIDWM 10 Days #20 capsule Home Medications: Aspirin [Adult Aspirin Regimen] 81 mg PO DAILY 06/03/17 [History] Betamethasone Valerate 1 appl TP PRN PRN 06/03/17 [History] Carvedilol 3.125 mg PO BID 06/03/17 [History] Fluticasone Propionate Nasal [Flonase] 2 spr NS DAILY 06/03/17 [History] Furosemide [Lasix] 40 mg PO DAILY 06/03/17 [History] Glimepiride [Amaryl] 2 mg PO BID 06/03/17 [History] Mupirocin [Bactroban Oint] 1 appl TP PRN PRN 06/03/17 [History] OxyCODONE/APAP 5/325 [Percocet 5/325 MG] 1 tab PO Q6HR PRN 06/03/17 [History] Pantoprazole Sodium [Protonix] 40 mg PO DAILY 06/03/17 [History] Phenazopyridine [Pyridium] 100 mg PO TID PRN 06/03/17 [History] Rivaroxaban [Xarelto] 15 mg PO QPM 06/03/17 [History] Simvastatin [Zocor] 40 mg PO HS 06/03/17 [History] Spironolactone [Aldactone] 25 mg PO BID 06/03/17 [History] Tamsulosin [Flomax] 0.4 mg PO DAILY 06/03/17 [History] Triamcinolone Acetonide 1 appl TP PRN PRN 06/03/17 [History] Doxycycline Hyclate [Vibramycin] 100 mg PO BID 14 Days #28 capsule 06/06/17 [Rx] Levofloxacin [Levaquin] 500 mg PO DAILY 5 Days #5 tablet 06/06/17 [Rx] Nitrofurantoin (BID) [Macrobid] 100 mg PO BIDWM 10 Days #20 capsule 06/06/17 [Rx ] Allergies/Adverse Reactions: 3 Allergy/AdvReac Type Severity Reaction Status Date / Time cephalexin [From Keflex] Allergy Hives Verified 06/03/17 08:11 Penicillins [PCN] Allergy See Verified 06/05/17 14:45 Comments Sulfa (Sulfonamide Allergy Hives Verified 06/03/17 08:11 Antibiotics) Date of admission: 06/03/17 08:43 Primary care physician: Jim Smith MD Consults: 06/04/17 09:57 Consult to Urology [CONS] Routine Consulting Provider: [facility] [place] Reason for Consult: Ureterostent placement 5 days ago, now AMS Call Completed: Yes 06/04/17 16:25 Consult to Infectious Diseases [CONS] Routine Consulting Provider: [facility] [place] Reason for Consult: Fever Time Notified: 16:25 Call Completed: Yes 06/06/17 10:27 Consult to Occupational Therapy [CONS] Routine Comment: Evaluate, develop and implement POC Reason for Consult: evaluate functionality Does patient have active BEDREST order?: No Is patient medically & hemodynamically stable?: Yes 06/06/17 10:28 Consult to Physical Therapy [CONS] Routine Comment: Evaluate, develop and implement POC Reason for Consult: increase activity Does patient have active BEDREST order?: Yes Is patient medically & hemodynamically stable?: Yes Discharging clinician: Giovanny Babcock Anticipated date of discharge: 06/06/17 - Constitutional Vitals: Temp Pulse Resp BP Pulse Ox 97.4 F L 66 18 113/96 95 06/06/17 11:20 06/06/17 11:20 06/06/17 11:20 06/06/17 11:20 06/06/17 11:20 General appearance: Present: mild distress, A&O X 3, morbidly obese, answers questions appropriately - Head Head exam: Present: normal inspection - ENT ENT exam: Present: normal exam Additional comments: non-tender frontal sinuses - Respiratory Respiratory exam: Present: wheezes - Cardiovascular Cardiovascular exam: Present: RRR, +S1, +S2. Absent: diastolic murmur, gallop, rubs, systolic murmur - Extremities Exam Extremities exam: Absent: pedal edema - Patient Status Disposition: Home, Self-Care Condition: Fair Overall status at discharge: patient is progressing back to baseline - Discharge Instructions Instructions: Levofloxacin (By mouth), Nitrofurantoin Combination (By mouth), Urinary Tract Infection in Men (DC), Sepsis (DC) Follow Up With: Jim Smith MD [Primary Care Provider] - (they will call patient at home with the appt.) Additional Instructions: Patient advised to finish abx to finish. Patient to have follow up with PCP within 1 week. Encouraged to increase activity. - Diet and Activity Activity: increase activity as tolerated Diet: low fat, low cholesterol, low salt diet, regular diet <Nestor Krishnan - Last Filed: 06/06/17 19:28> Orders not resulted at time of discharge: Pending orders 06/03/17 09:26 Culture,Blood [BC] Routine Date of Encounter: 06/06/17 - Discharge Diagnosis (1) UTI (urinary tract infection) Status: Acute Qualifiers: Urinary tract infection type: acute cystitis Hematuria presence: without hematuria Qualified Code(s): N30.00 - Acute cystitis without hematuria (2) Acute metabolic encephalopathy Status: Resolved (3) Atrial fibrillation Status: Chronic Qualifiers: Atrial fibrillation type: chronic Qualified Code(s): I48.2 - Chronic atrial fibrillation (4) Diabetes mellitus Status: Chronic Qualifiers: Diabetes mellitus type: type 2 Diabetes mellitus oysterman insulin use: without oysterman use Diabetes mellitus complication status: with other specified complication Qualified Code(s): E11.69 - Type 2 diabetes mellitus with other specified complication (5) Leukocytosis Status: Resolved Qualifiers: Leukocytosis type: bandemia Qualified Code(s): D72.825 - Bandemia (6) Chronic respiratory failure with hypoxia Priority: Secondary Status: Chronic (7) MINH (acute kidney injury) Status: Resolved (8) Elevated troponin Status: Resolved (9) Morbid obesity Status: Chronic (10) Hypomagnesemia Status: Resolved Hospital course: Mr. Tong is a 67 year old male - Time Spent with Patient Total time spent providing and/or coordinating discharge services: 39min Date of admission: 06/03/17 08:43 Primary care physician: Jim Smith MD Consults: 06/04/17 09:57 Consult to Urology [CONS] Routine Consulting Provider: [facility] [place] Reason for Consult: Ureterostent placement 5 days ago, now AMS Call Completed: Yes 06/04/17 16:25 Consult to Infectious Diseases [CONS] Routine Consulting Provider: [facility] [place] Reason for Consult: Fever Time Notified: 16:25 Call Completed: Yes 06/06/17 10:27 Consult to Occupational Therapy [CONS] Routine Comment: Evaluate, develop and implement POC Reason for Consult: evaluate functionality Does patient have active BEDREST order?: No Is patient medically & hemodynamically stable?: Yes 06/06/17 10:28 Consult to Physical Therapy [CONS] Routine Comment: Evaluate, develop and implement POC Reason for Consult: increase activity Does patient have active BEDREST order?: Yes Is patient medically & hemodynamically stable?: Yes - Constitutional Vitals: Temp Pulse Resp BP Pulse Ox 97.4 F L 66 18 113/96 95 06/06/17 11:20 06/06/17 11:20 06/06/17 11:20 06/06/17 11:20 06/06/17 12:28 - Attending Attestation I examined this patient and my medical decision-making was reviewed with the Resident Physician on 06/06/17. I agree with the documented findings, disposition and treatment plan as described except to the extent set forth below. Mr Tong has been admitted for sepsis related to UTI. He also has sinusitis. He is now afebrile and feels he is progressing to baseline. He has qualified for home oxygen. He is ready for discharge home. Exam alert Comfortable Mucus membranes dry Heart reg No wheeze abd soft Plan D/C home today on PO abx.
--- NOTE | 2017-06-06 16:32 | Physician Discharge Referral ---
Home Health/Hosp Referral Info Transfer to: Home Health Provider in Charge Post Discharge: PCP - Diagnosis (1) UTI (urinary tract infection) Priority: Primary Status: Acute (2) Acute metabolic encephalopathy Priority: Secondary Status: Resolved (3) Atrial fibrillation Priority: Secondary Status: Chronic (4) Diabetes mellitus Priority: Secondary Status: Chronic (5) Leukocytosis Priority: Secondary Status: Resolved (6) MINH (acute kidney injury) Priority: Secondary Status: Resolved (7) Elevated troponin Priority: Secondary Status: Resolved (8) Morbid obesity Priority: Secondary Status: Chronic (9) Hypomagnesemia Priority: Secondary Status: Resolved - Respiratory Orders Oxygen / L per min (2 liters continuous) Smoking Cessation: Smoking cessation has been advised. For more information, call the [employer] Quit Line at 8-000-GXPH-NOW. - Diet/Nutrition Diet/Nutrition Orders: Cardiac - Activity Activity Orders: Up ad evens - Services Needed Following services are medically necessary services: Nursing, Physical Therapy, Occupational Therapy - Transfer Medications Prescriptions: Doxycycline Hyclate [Vibramycin] 100 mg PO BID 14 Days #28 capsule Nitrofurantoin (BID) [Macrobid] 100 mg PO BIDWM 10 Days #20 capsule Home Medications: Aspirin [Adult Aspirin Regimen] 81 mg PO DAILY 06/03/17 [History] Betamethasone Valerate 1 appl TP PRN PRN 06/03/17 [History] Carvedilol 3.125 mg PO BID 06/03/17 [History] Fluticasone Propionate Nasal [Flonase] 2 spr NS DAILY 06/03/17 [History] Furosemide [Lasix] 40 mg PO DAILY 06/03/17 [History] Glimepiride [Amaryl] 2 mg PO BID 06/03/17 [History] Mupirocin [Bactroban Oint] 1 appl TP PRN PRN 06/03/17 [History] OxyCODONE/APAP 5/325 [Percocet 5/325 MG] 1 tab PO Q6HR PRN 06/03/17 [History] Pantoprazole Sodium [Protonix] 40 mg PO DAILY 06/03/17 [History] Phenazopyridine [Pyridium] 100 mg PO TID PRN 06/03/17 [History] Rivaroxaban [Xarelto] 15 mg PO QPM 06/03/17 [History] Simvastatin [Zocor] 40 mg PO HS 06/03/17 [History] Spironolactone [Aldactone] 25 mg PO BID 06/03/17 [History] Tamsulosin [Flomax] 0.4 mg PO DAILY 06/03/17 [History] Triamcinolone Acetonide 1 appl TP PRN PRN 06/03/17 [History] Doxycycline Hyclate [Vibramycin] 100 mg PO BID 14 Days #28 capsule 06/06/17 [Rx] Nitrofurantoin (BID) [Macrobid] 100 mg PO BIDWM 10 Days #20 capsule 06/06/17 [Rx ] Allergies/Adverse Reactions: 3 Allergy/AdvReac Type Severity Reaction Status Date / Time cephalexin [From Keflex] Allergy Hives Verified 06/03/17 08:11 Penicillins [PCN] Allergy See Verified 06/05/17 14:45 Comments Sulfa (Sulfonamide Allergy Hives Verified 06/03/17 08:11 Antibiotics) Certification: Further, I certify that my clinical findings support that this patient is homebound (i.e. absences from home require considerable and taxing effort and are for medical reasons or restorationist services or infrequently or short duration when for other reasons) because: Homebound Reason: Patient requires assistance of a person or device to safely leave home, Leaving home requires considerable and taxing effort due to condition, Severity of cardiac or pulmonary status limits activity tolerance Attestation: My signature below is to certify that this patient is under my care and that I, or nurse practitioner, or a physician's sociology research assistant working with me, has a face-to -face encounter with this patient.
[2017-06-06] MEDS ORDERED: Nitrofurantoin (BID) 100 MG CAPSULE PO SCH (17:00)
[2017-06-06] MEDS: *HR* Rivaroxaban 10 MG TABLET PO SCH (17:26)
== END 2017-06-06 17:58 | disposition home or self-care (01) ==
LOC: 2SOUTHHOLD 05:19 → EMEROO 05:19 → 2SOUTHHOLD 09:23 → 2NENU 18:39
PROVIDERS: ADMIT Internal Medicine Cardiovascular Disease; ATTEND Internal Medicine

== ENCOUNTER 2018-10-08 05:16 | Observation (INO) ==
[2018-10-08] MEDS ORDERED: Oxymetazoline Nasal SPRAY BOTTLE NS PRN (05:30)
[2018-10-08] MEDS ORDERED: Lidocaine Viscous Oral Soln 15 ML SOLUTION MM STA (05:33)
[2018-10-08] MEDS ORDERED: *HR* OxyCODONE/APAP 5/325 TABLET PO ONE (08:05)
[2018-10-08] MEDS ORDERED: Ondansetron ODT 4 MG TAB.RAPDIS SL STA (10:08)
[2018-10-08 11:07] LABS: Hematocrit 40.3 % (37.5-50.1); Hemoglobin 12.9 g/dL (12.9-16.9)
[2018-10-08] MEDS ORDERED: *HR* OxyCODONE Immed Rel 5 MG TABLET PO STA (17:49)
[2018-10-08] MEDS ORDERED: Naloxone 0.4 MG/ML INJ IVP PRN (18:41)
[2018-10-08] MEDS ORDERED: Ondansetron 4 MG/2 ML VIAL IVP PRN (18:41)
[2018-10-08] MEDS ORDERED: *HR* OxyCODONE/APAP 5/325 TABLET PO PRN (18:43)
[2018-10-08 19:33] LABS: Hemoglobin 12.4 g/dL (12.9-16.9); Mean Corpuscular HGB Conc 32.6 g/dL (31.6-35.5); Mean Corpuscular Hemoglobin 28.8 pg (28.0-33.3); Mean Corpuscular Volume 88.4 fL (83.0-100.0); Mean Platelet Volume 12.1 fL (9.4-12.4); Platelet Count 132 K/mcL (140-400); Red Cell Distribution Width 12.9 % (11.5-14.5); White Blood Count 10.6 K/mcL (4.3-11.1)
[2018-10-08 19:47] LABS: BUN/Creatinine Ratio 21 (6-26); Blood Urea Nitrogen 28 mg/dL (8-23); Calcium 8.6 mg/dL (8.6-10.3); Carbon Dioxide 24 mEq/L (23-29); Chloride 105 mEq/L (98-107); Glucose 175 mg/dL (70-105); Osmolality,Calculated 290 (280-300); Potassium 4.6 mEq/L (3.5-5.1); Sodium 135 mEq/L (136-145); eGFR For African Americans > 60 (> 60); eGFR For Non-African Americans 53 (> 60)
[2018-10-08] MEDS ORDERED: D5% in Water 1,000 ML IVC PRN (20:28)
[2018-10-08] MEDS ORDERED: *HR* Dextrose 50 % in Water (Syg) 50 ML SYRINGE IVP PRN (20:28)
[2018-10-08] MEDS ORDERED: Dextrose Gel 15 GM/37.5 ML TUBE PO PRN ×2 (20:28)
[2018-10-08] MEDS ORDERED: Spironolactone 25 MG TABLET PO SCH (21:00)
[2018-10-08] MEDS ORDERED: Insulin LISPRO 300 UNITS/3 ML VIAL SQ SCH (21:00)
[2018-10-08] MEDS ORDERED: carvediloL 6.25 MG TABLET PO SCH (21:00)
[2018-10-09] MEDS ORDERED: Lidocaine -MPF 2% 2 ML VIAL ONE ×2 (04:49→07:50)
[2018-10-09] MEDS ORDERED: *HR* Succinylcholine 200 MG/10 ML VIAL IVP ONE (04:49)
[2018-10-09] MEDS ORDERED: *HR* Propofol 200 MG/20 ML VIAL IVP ONE (04:49)
[2018-10-09] MEDS ORDERED: Lidocaine -MPF 4% 5 ML AMPUL ONE (04:49)
[2018-10-09] MEDS ORDERED: *HR* FentaNYL (PF) 100 MCG/2 ML VIAL ONE (04:49)
[2018-10-09 05:19] LABS: Hematocrit 35.5 % (37.5-50.1); Hemoglobin 11.4 g/dL (12.9-16.9); Mean Corpuscular HGB Conc 32.1 g/dL (31.6-35.5); Mean Corpuscular Hemoglobin 29.5 pg (28.0-33.3); Mean Corpuscular Volume 91.7 fL (83.0-100.0); Mean Platelet Volume 12.2 fL (9.4-12.4); Platelet Count 105 K/mcL (140-400); Red Blood Count 3.87 M/mcL (4.19-5.50); Red Cell Distribution Width 12.7 % (11.5-14.5); White Blood Count 9.9 K/mcL (4.3-11.1)
[2018-10-09] MEDS ORDERED: Lidocaine/EPI 1:100k 1% 20 ML VIAL ONE (05:36)
[2018-10-09] MEDS ORDERED: Ferric Subsulfate 8 ML TOPICAL TP ONE (05:36)
[2018-10-09] MEDS ORDERED: Oxymetazoline Nasal SPRAY BOTTLE NS ONE (05:36)
[2018-10-09 05:41] LABS: Calcium 8.5 mg/dL (8.6-10.3); Magnesium 1.5 mg/dL (1.6-2.6); Potassium 4.5 mEq/L (3.5-5.1)
[2018-10-09] MEDS ORDERED: *HR* PHENYLEPHRINE 1,000 MCG/10 ML SYRINGE IVP ONE (06:40)
[2018-10-09] MEDS ORDERED: Acetaminophen IV 1,000 MG/100 ML INFUS..BTL ONE (06:50)
[2018-10-09] MEDS ORDERED: Acetaminophen IV 1,000 MG/100 ML INFUS..BTL IVPB ONE (06:50)
[2018-10-09] MEDS ORDERED: Ondansetron 4 MG/2 ML VIAL ONE (06:51)
[2018-10-09] MEDS ORDERED: CefOXitin 2,000 MG VIAL ONE (06:51)
[2018-10-09] MEDS ORDERED: Insulin LISPRO 300 UNITS/3 ML VIAL SQ SCH ×2 (07:30→21:00)
[2018-10-09] MEDS ORDERED: *HR* OxyCODONE Immed Rel 5 MG TABLET PO PRN (08:11)
[2018-10-09] MEDS ORDERED: *HR* HYDROmorphone (PF) 1 MG/ML SYRINGE IVP PRN (08:11)
[2018-10-09] MEDS ORDERED: *HR* OxyCODONE/APAP 5/325 TABLET PO PRN (09:30)
[2018-10-09] MEDS ORDERED: Naloxone 0.4 MG/ML INJ IVP PRN (09:30)
[2018-10-09] MEDS ORDERED: Oxymetazoline Nasal SPRAY BOTTLE NS PRN (09:30)
[2018-10-09] MEDS ORDERED: Dextrose Gel 15 GM/37.5 ML TUBE PO PRN ×2 (09:30)
[2018-10-09] MEDS ORDERED: *HR* Dextrose 50 % in Water (Syg) 50 ML SYRINGE IVP PRN (09:30)
[2018-10-09] MEDS ORDERED: D5% in Water 1,000 ML IVC PRN (09:30)
[2018-10-09] MEDS ORDERED: Ondansetron 4 MG/2 ML VIAL IVP PRN (09:30)
[2018-10-09] MEDS: Insulin LISPRO 300 UNITS/3 ML VIAL SQ SCH ×2 (13:13→18:01)
[2018-10-09 14:47] LABS: Hematocrit 36.9 % (37.5-50.1); Hemoglobin 11.7 g/dL (12.9-16.9)
[2018-10-09] MEDS: carvediloL 6.25 MG TABLET PO SCH (18:00)
[2018-10-09] MEDS: Pantoprazole 40 MG VIAL IVP SCH (18:01)
[2018-10-09 19:05] LABS: Hematocrit 31.7 % (37.5-50.1); Hemoglobin 10.6 g/dL (12.9-16.9)
[2018-10-09] MEDS: Spironolactone 25 MG TABLET PO SCH (22:01)
[2018-10-10 02:32] LABS: Basophils % 0.3 %; Hematocrit 32.8 % (37.5-50.1); Hemoglobin 10.8 g/dL (12.9-16.9); Immature Granulocytes % 0.5 % (0-4); Immature Platelets 13.3 % (1.1-6.1); Lymphocytes # 2.8 K/mcL (0.6-4.6); Mean Corpuscular HGB Conc 32.9 g/dL (31.6-35.5); Mean Corpuscular Hemoglobin 29.2 pg (28.0-33.3); Mean Corpuscular Volume 88.6 fL (83.0-100.0); Monocytes % 7.2 %; Platelet Count 131 K/mcL (140-400); Red Cell Distribution Width 12.6 % (11.5-14.5); White Blood Count 11.7 K/mcL (4.3-11.1)
[2018-10-10 02:45] LABS: % Iron Saturation 12 % (20-55); BUN/Creatinine Ratio 20 (6-26); Blood Urea Nitrogen 27 mg/dL (8-23); Calcium 8.9 mg/dL (8.6-10.3); Carbon Dioxide 23 mEq/L (23-29); Chloride 105 mEq/L (98-107); Glucose 182 mg/dL (70-105); Iron 49 mcg/dL (65-175); Magnesium 1.9 mg/dL (1.6-2.6); Osmolality,Calculated 292 (280-300); Potassium 4.8 mEq/L (3.5-5.1); Sodium 136 mEq/L (136-145); Transferrin 281 mg/dL (203-362); eGFR For African Americans > 60 (> 60); eGFR For Non-African Americans 52 (> 60)
[2018-10-10 02:51] LABS: Monocytes # 0.8 K/mcL (0.0-1.3)
[2018-10-10 03:12] LABS: Ferritin 27 ng/mL (20-250)
[2018-10-10 04:10] LABS: Folate > 22.3 ng/mL (3.0-16.0); Vitamin B12 159 pg/mL (250-1100)
[2018-10-10] MEDS: Pantoprazole 40 MG VIAL IVP SCH (05:15)
[2018-10-10 06:34] LABS: Estimated Average Glucose 148 mg/dl
[2018-10-10] MEDS ORDERED: Iron Sucrose Complex 250 MG in 0.9 % Sodium Chloride 250 ML IVPB ONE (07:48)
[2018-10-10] MEDS: Insulin LISPRO 300 UNITS/3 ML VIAL SQ SCH ×2 (08:20→12:50)
[2018-10-10] MEDS: Spironolactone 25 MG TABLET PO SCH (08:20)
[2018-10-10] MEDS: carvediloL 6.25 MG TABLET PO SCH (08:20)
[2018-10-10 09:17] LABS: Hematocrit 31.9 % (37.5-50.1); Hemoglobin 10.4 g/dL (12.9-16.9)
[2018-10-10 12:03] VITALS: BP 143/81
== END 2018-10-10 14:07 | disposition home or self-care (01) ==
LOC: EMEROOARM 05:16 → 3ANU 05:16 → SUATTDRO 19:54 → 3ANU 20:49
PROVIDERS: ADMIT Internal Medicine; ATTEND Pharmacist

== ENCOUNTER 2019-12-27 08:46 | Inpatient (IN) ==
[2019-12-27 10:43] LABS: Basophils % 0.4 %; Eosinophils % 0.1 %; Hematocrit 43.6 % (37.5-50.1); Hemoglobin 14.2 g/dL (12.9-16.9); Immature Granulocytes % 0.9 % (0-4); Lymphocytes % 23.9 %; Mean Corpuscular HGB Conc 32.6 g/dL (31.6-35.5); Mean Corpuscular Hemoglobin 28.6 pg (28.0-33.3); Mean Corpuscular Volume 87.9 fL (83.0-100.0); Mean Platelet Volume 11.9 fL (9.4-12.4); Monocytes # 0.9 K/mcL (0.0-1.3); Monocytes % 10.7 %; Neutrophils # 5.4 K/mcL (1.6-8.9); Platelet Count 119 K/mcL (140-400); Red Blood Count 4.96 M/mcL (4.19-5.50); Red Cell Distribution Width 12.7 % (11.5-14.5); White Blood Count 8.5 K/mcL (4.3-11.1)
[2019-12-27 10:57] LABS: INR 1.1; Prothrombin Time 12.8 Seconds (9.4-12.1)
[2019-12-27 10:58] LABS: Bacteria,Urine Few per hpf (None-Few); Bilirubin,Urine Negative (Negative); Blood,Urine Negative (Negative); Clarity,Urine Clear (Clear); Color,Urine Yellow (Yellow); Glucose,Urine (UA) Normal (Normal); Hyaline Casts,Urine Few per lpf (None Seen); Ketones,Urine Negative (Negative); Leukocyte Esterase,Urine Negative (Negative); Mucus,Urine Few per lpf (None-Few); Nitrite,Urine Negative (Negative); PH,Urine 5.5 pH Units (5.0-8.0); Protein,Urine 100 mg/dL (Neg-Trace); RBC,Urine 0-3 per hpf (0-3); Specific Gravity,Urine 1.028 (1.010-1.025); Urobilinogen,Urine Normal (Normal); WBC,Urine 0-3 per hpf (0-3)
[2019-12-27 10:59] LABS: Activated Partial Thrombo Time 28.7 Seconds (26.0-36.0)
[2019-12-27 11:04] LABS: Alanine Aminotransferase 13 Units/L (7-52); Albumin 3.5 g/dL (3.5-5.7); Alkaline Phosphatase 26 Units/L (34-104); Amylase 40 Units/L (29-103); Aspartate Amino Transferase 26 Units/L (13-39); BUN/Creatinine Ratio 11 (6-26); Bilirubin,Direct 0.2 mg/dL (0.0-0.2); Bilirubin,Indirect 0.6 mg/dL (0.0-1.0); Bilirubin,Total 0.8 mg/dL (0.3-1.0); Blood Urea Nitrogen 14 mg/dL (8-23); Calcium 7.9 mg/dL (8.6-10.3); Carbon Dioxide 23 mEq/L (23-29); Chloride 93 mEq/L (98-107); Globulin 3.4 g/dL (2.4-3.5); Glucose 214 mg/dL (70-105); Lipase 6 Units/L (11-82); Osmolality,Calculated 269 (280-300); Potassium 4.3 mEq/L (3.5-5.1); Sodium 126 mEq/L (136-145); Total Protein 6.9 g/dL (6.4-8.9); Troponin I 0.03 ng/mL (< 0.04); eGFR For African Americans > 60 (> 60); eGFR For Non-African Americans 54 (> 60)
[2019-12-27] MEDS ORDERED: Naloxone 0.4 MG/ML INJ IVP PRN (14:24)
[2019-12-27] MEDS ORDERED: Ondansetron 4 MG/2 ML VIAL IVP PRN (14:24)
[2019-12-27] MEDS ORDERED: 0.9 % Sodium Chloride 1,000 ML IVC SCH (14:30)
[2019-12-27] MEDS ORDERED: Perflutren Lipid Microsphere 1.3 ML in 0.9 % Sodium Chloride 8.7 ML IVP PRN (14:30)
[2019-12-27] MEDS ORDERED: Dextrose Gel 15 GM/37.5 ML TUBE PO PRN ×3 (15:32→15:39)
[2019-12-27] MEDS ORDERED: *HR* Dextrose 50 % in Water (Vial) 50 ML VIAL IVP PRN (15:33)
[2019-12-27] MEDS ORDERED: D5% in Water 1,000 ML IVC PRN (15:33)
[2019-12-27 15:59] LABS: Adenovirus Not Detected (Not Detect); Bordetella Pertussis Not Detected (Not Detect); Chlamydophila pneumoniae Not Detected (Not Detect); Coronavirus 229E Not Detected (Not Detect); Coronavirus HKU1 Not Detected (Not Detect); Coronavirus NL63 Not Detected (Not Detect); Coronavirus OC43 Not Detected (Not Detect); Human Metapneumovirus Not Detected (Not Detect); Human Rhinovirus/Enterovirus Not Detected (Not Detect); Influenza A Subtype 2009 H1 Not Detected (Not Detect); Influenza B Not Detected (Not Detect); Mycoplasma pneumoniae Not Detected (Not Detect); Parainfluenza Virus 1 Not Detected (Not Detect); Parainfluenza Virus 2 Not Detected (Not Detect); Parainfluenza Virus 3 Not Detected (Not Detect); Parainfluenza Virus 4 Not Detected (Not Detect); Respiratory Syncytial Virus Not Detected (Not Detect); SARS-CoV-2 DETECTED (Not Detect)
[2019-12-27] MEDS: Insulin LISPRO 300 UNITS/3 ML VIAL SQ SCH (18:40)
[2019-12-27] MEDS: Dexamethasone 4 MG/ML VIAL IVP SCH (18:43)
[2019-12-27] MEDS: MetroNIDAZOLE 500 MG/100 ML 500 MG/100 ML BAG IVPB SCH (18:43)
[2019-12-27 21:25] LABS: C-Reactive Protein 44 mg/L (Less than 10)
[2019-12-27 21:44] LABS: Ferritin 244 ng/mL (20-250)
[2019-12-28] MEDS: MetroNIDAZOLE 500 MG/100 ML 500 MG/100 ML BAG IVPB SCH ×2 (04:25→07:34)
[2019-12-28 04:57] LABS: Basophils % 0.2 %; Hematocrit 40.8 % (37.5-50.1); Hemoglobin 13.6 g/dL (12.9-16.9); Immature Granulocytes % 0.9 % (0-4); Lymphocytes # 1.1 K/mcL (0.6-4.6); Lymphocytes % 25.3 %; Mean Corpuscular HGB Conc 33.3 g/dL (31.6-35.5); Mean Corpuscular Hemoglobin 28.9 pg (28.0-33.3); Mean Corpuscular Volume 86.6 fL (83.0-100.0); Mean Platelet Volume 12.5 fL (9.4-12.4); Monocytes # 0.3 K/mcL (0.0-1.3); Platelet Count 127 K/mcL (140-400); Red Blood Count 4.71 M/mcL (4.19-5.50); Red Cell Distribution Width 12.6 % (11.5-14.5); Segmented Neutrophils % 67.6 %; White Blood Count 4.5 K/mcL (4.3-11.1)
[2019-12-28 05:11] LABS: BUN/Creatinine Ratio 14 (6-26); Blood Urea Nitrogen 17 mg/dL (8-23); Calcium 7.9 mg/dL (8.6-10.3); Carbon Dioxide 20 mEq/L (23-29); Chloride 94 mEq/L (98-107); Glucose 317 mg/dL (70-105); Osmolality,Calculated 278 (280-300); Potassium 4.8 mEq/L (3.5-5.1); Sodium 127 mEq/L (136-145); eGFR For African Americans > 60 (> 60); eGFR For Non-African Americans > 60 (> 60)
[2019-12-28] MEDS: Insulin LISPRO 300 UNITS/3 ML VIAL SQ SCH ×3 (07:32→17:24)
[2019-12-28] MEDS: Dexamethasone 4 MG/ML VIAL IVP SCH (07:32)
[2019-12-28] MEDS ORDERED: Furosemide 20 MG/2 ML VIAL IVP ONE (14:47)
[2019-12-28] MEDS ORDERED: 0.9 % Sodium Chloride 250 ML IVC SCH (15:00)
[2019-12-28] MEDS ORDERED: *HR* OxyCODONE/APAP 5/325 TABLET PO PRN (15:13)
[2019-12-28] MEDS: carvediloL 6.25 MG TABLET PO SCH (17:23)
[2019-12-28] MEDS: *HR* Enoxaparin 40 MG/0.4 ML SYRINGE SQ SCH (18:05)
[2019-12-28] MEDS ORDERED: Spironolactone 25 MG TABLET PO SCH (21:00)
[2019-12-28] MEDS ORDERED: Insulin DETEMIR 100 UNIT/ML X5UNITS SQ SCH (21:00)
[2019-12-29] MEDS: *HR* Enoxaparin 40 MG/0.4 ML SYRINGE SQ SCH (05:07)
[2019-12-29] MEDS ORDERED: 0.9 % Sodium Chloride 250 ML ONE (05:26)
[2019-12-29 05:53] LABS: Basophils % 0.2 %; Eosinophils % 0.1 %; Hematocrit 43.1 % (37.5-50.1); Hemoglobin 14.1 g/dL (12.9-16.9); Immature Granulocytes % 1.1 % (0-4); Lymphocytes # 1.1 K/mcL (0.6-4.6); Lymphocytes % 13.4 %; Mean Corpuscular HGB Conc 32.7 g/dL (31.6-35.5); Mean Corpuscular Volume 85.7 fL (83.0-100.0); Mean Platelet Volume 12.6 fL (9.4-12.4); Monocytes # 0.7 K/mcL (0.0-1.3); Neutrophils # 6.3 K/mcL (1.6-8.9); Platelet Count 123 K/mcL (140-400); Red Blood Count 5.03 M/mcL (4.19-5.50); Red Cell Distribution Width 12.6 % (11.5-14.5); Segmented Neutrophils % 77.2 %
[2019-12-29 05:54] LABS: White Blood Count 8.2 K/mcL (4.3-11.1)
[2019-12-29 06:15] LABS: BUN/Creatinine Ratio 18 (6-26); Blood Urea Nitrogen 19 mg/dL (8-23); Carbon Dioxide 20 mEq/L (23-29); Chloride 98 mEq/L (98-107); Glucose 321 mg/dL (70-105); Osmolality,Calculated 281 (280-300); Potassium 4.5 mEq/L (3.5-5.1); Sodium 128 mEq/L (136-145); eGFR For African Americans > 60 (> 60); eGFR For Non-African Americans > 60 (> 60)
[2019-12-29] MEDS: carvediloL 6.25 MG TABLET PO SCH ×2 (08:26→17:48)
[2019-12-29] MEDS: Insulin LISPRO 300 UNITS/3 ML VIAL SQ SCH ×3 (08:26→17:50)
[2019-12-29] MEDS: Cholestyramine 4 GM POWD.PACK PO SCH (08:26)
[2019-12-29] MEDS: Dexamethasone 4 MG/ML VIAL IVP SCH (08:27)
[2019-12-29] MEDS: Furosemide 40 MG/4 ML VIAL IVP SCH (08:54)
[2019-12-29] MEDS: Spironolactone 25 MG TABLET PO SCH (08:54)
[2019-12-29] MEDS ORDERED: Insulin DETEMIR 100 UNIT/ML X5UNITS SQ ONE (14:24)
[2019-12-29] MEDS: *HR* Rivaroxaban 15 MG TABLET PO SCH (17:48)
[2019-12-30 07:48] LABS: Basophils % 0.3 %; Eosinophils % 0.3 %; Hematocrit 42.5 % (37.5-50.1); Hemoglobin 14.3 g/dL (12.9-16.9); Immature Granulocytes % 1.2 % (0-4); Lymphocytes # 1.5 K/mcL (0.6-4.6); Lymphocytes % 14.5 %; Mean Corpuscular HGB Conc 33.6 g/dL (31.6-35.5); Mean Corpuscular Hemoglobin 28.4 pg (28.0-33.3); Mean Corpuscular Volume 84.5 fL (83.0-100.0); Mean Platelet Volume 12.5 fL (9.4-12.4); Monocytes # 0.8 K/mcL (0.0-1.3); Monocytes % 8.1 %; Neutrophils # 7.6 K/mcL (1.6-8.9); Platelet Count 178 K/mcL (140-400); Red Blood Count 5.03 M/mcL (4.19-5.50); Red Cell Distribution Width 12.6 % (11.5-14.5); Segmented Neutrophils % 75.6 %; White Blood Count 10.1 K/mcL (4.3-11.1)
[2019-12-30 08:20] LABS: BUN/Creatinine Ratio 21 (6-26); Blood Urea Nitrogen 22 mg/dL (8-23); Calcium 8.2 mg/dL (8.6-10.3); Carbon Dioxide 21 mEq/L (23-29); Chloride 96 mEq/L (98-107); Glucose 359 mg/dL (70-105); Osmolality,Calculated 288 (280-300); Potassium 4.6 mEq/L (3.5-5.1); Sodium 130 mEq/L (136-145); eGFR For African Americans > 60 (> 60); eGFR For Non-African Americans > 60 (> 60)
[2019-12-30] MEDS: carvediloL 6.25 MG TABLET PO SCH ×2 (09:22→16:33)
[2019-12-30] MEDS: Spironolactone 25 MG TABLET PO SCH (09:22)
[2019-12-30] MEDS: Cholestyramine 4 GM POWD.PACK PO SCH (09:23)
[2019-12-30] MEDS: Furosemide 40 MG/4 ML VIAL IVP SCH (09:23)
[2019-12-30] MEDS: Dexamethasone 4 MG/ML VIAL IVP SCH (09:23)
[2019-12-30] MEDS: Insulin DETEMIR 100 UNIT/ML X5UNITS SQ SCH (09:24)
[2019-12-30] MEDS: Insulin LISPRO 300 UNITS/3 ML VIAL SQ SCH ×3 (09:24→16:54)
[2019-12-30] MEDS: *HR* Rivaroxaban 15 MG TABLET PO SCH (16:33)
[2019-12-31 07:22] LABS: Basophils # 0.1 K/mcL (0.0-0.2); Basophils % 0.5 %; Eosinophils % 0.1 %; Hematocrit 45.4 % (37.5-50.1); Hemoglobin 15.3 g/dL (12.9-16.9); Immature Granulocytes % 1.5 % (0-4); Lymphocytes # 1.3 K/mcL (0.6-4.6); Lymphocytes % 11.3 %; Mean Corpuscular HGB Conc 33.7 g/dL (31.6-35.5); Mean Corpuscular Hemoglobin 29.4 pg (28.0-33.3); Mean Corpuscular Volume 87.3 fL (83.0-100.0); Monocytes # 0.9 K/mcL (0.0-1.3); Monocytes % 7.7 %; Neutrophils # 9.2 K/mcL (1.6-8.9); Platelet Count 184 K/mcL (140-400); Red Cell Distribution Width 12.7 % (11.5-14.5); Segmented Neutrophils % 78.9 %; White Blood Count 11.7 K/mcL (4.3-11.1)
[2019-12-31 07:25] LABS: Fibrinogen 538 mg/dL (169-393)
[2019-12-31 07:26] LABS: D-Dimer 723 ng/mLFEU (0-500)
[2019-12-31 07:36] LABS: BUN/Creatinine Ratio 23 (6-26); Blood Urea Nitrogen 26 mg/dL (8-23); Calcium 8.8 mg/dL (8.6-10.3); Carbon Dioxide 24 mEq/L (23-29); Chloride 94 mEq/L (98-107); Glucose 334 mg/dL (70-105); Magnesium 1.8 mg/dL (1.6-2.6); Osmolality,Calculated 286 (280-300); Potassium 4.3 mEq/L (3.5-5.1); Sodium 129 mEq/L (136-145); eGFR For African Americans > 60 (> 60); eGFR For Non-African Americans > 60 (> 60)
[2019-12-31 08:11] LABS: Estimated Average Glucose 237 mg/dl
[2019-12-31] MEDS: Insulin LISPRO 300 UNITS/3 ML VIAL SQ SCH ×3 (09:00→17:23)
[2019-12-31] MEDS: Dexamethasone 4 MG/ML VIAL IVP SCH (09:01)
[2019-12-31] MEDS: Insulin DETEMIR 100 UNIT/ML X5UNITS SQ SCH ×2 (09:01→22:25)
[2019-12-31] MEDS: carvediloL 6.25 MG TABLET PO SCH ×2 (09:02→17:22)
[2019-12-31] MEDS: Spironolactone 25 MG TABLET PO SCH (09:02)
[2019-12-31] MEDS: Cholestyramine 4 GM POWD.PACK PO SCH (09:02)
[2019-12-31] MEDS: Furosemide 40 MG/4 ML VIAL IVP SCH ×2 (09:03→22:26)
[2019-12-31] MEDS: *HR* Rivaroxaban 15 MG TABLET PO SCH (17:22)
[2020-01-01] MEDS: Azithromycin 250 MG TABLET PO SCH (07:59)
[2020-01-01] MEDS: Cholestyramine 4 GM POWD.PACK PO SCH (08:00)
[2020-01-01] MEDS: Spironolactone 25 MG TABLET PO SCH (08:00)
[2020-01-01] MEDS: carvediloL 6.25 MG TABLET PO SCH ×2 (08:00→15:32)
[2020-01-01] MEDS: Furosemide 40 MG/4 ML VIAL IVP SCH ×2 (08:01→21:09)
[2020-01-01] MEDS: Dexamethasone 4 MG/ML VIAL IVP SCH (08:01)
[2020-01-01] MEDS: Insulin DETEMIR 100 UNIT/ML X5UNITS SQ SCH ×2 (08:09→21:09)
[2020-01-01] MEDS: Insulin LISPRO 300 UNITS/3 ML VIAL SQ SCH ×3 (08:10→15:32)
[2020-01-01] MEDS: *HR* Rivaroxaban 15 MG TABLET PO SCH (15:32)
[2020-01-02 01:47] LABS: Basophils % 0.2 %; Hematocrit 50.4 % (37.5-50.1); Immature Granulocytes % 2.3 % (0-4); Lymphocytes # 1.2 K/mcL (0.6-4.6); Lymphocytes % 7.4 %; Mean Corpuscular HGB Conc 33.5 g/dL (31.6-35.5); Mean Corpuscular Hemoglobin 28.7 pg (28.0-33.3); Mean Corpuscular Volume 85.6 fL (83.0-100.0); Mean Platelet Volume 12.1 fL (9.4-12.4); Monocytes # 0.9 K/mcL (0.0-1.3); Monocytes % 5.7 %; Neutrophils # 13.1 K/mcL (1.6-8.9); Nucleated Red Blood Cells 0.1 /100 WBC (0); Platelet Count 191 K/mcL (140-400); Red Blood Count 5.89 M/mcL (4.19-5.50); Red Cell Distribution Width 12.5 % (11.5-14.5); Segmented Neutrophils % 84.4 %; White Blood Count 15.5 K/mcL (4.3-11.1)
[2020-01-02 01:58] LABS: BUN/Creatinine Ratio 31 (6-26); Blood Urea Nitrogen 40 mg/dL (8-23); Calcium 9.1 mg/dL (8.6-10.3); Carbon Dioxide 25 mEq/L (23-29); Chloride 89 mEq/L (98-107); Glucose 240 mg/dL (70-105); Hemoglobin 16.9 g/dL (12.9-16.9); Magnesium 1.8 mg/dL (1.6-2.6); Osmolality,Calculated 284 (280-300); Sodium 128 mEq/L (136-145); eGFR For African Americans > 60 (> 60); eGFR For Non-African Americans 54 (> 60)
[2020-01-02 08:44] LABS: Basophils # 0.2 K/mcL (0.0-0.2); Basophils % 0.8 %; Eosinophils # 0.1 K/mcL (0.0-0.6); Eosinophils % 0.6 %; Hematocrit 46.7 % (37.5-50.1); Hemoglobin 16.3 g/dL (12.9-16.9); Immature Granulocytes % 3.4 % (0-4); Immature Platelets 11.9 % (1.1-6.1); Lymphocytes # 1.6 K/mcL (0.6-4.6); Lymphocytes % 8.1 %; Mean Corpuscular HGB Conc 34.9 g/dL (31.6-35.5); Mean Corpuscular Hemoglobin 28.8 pg (28.0-33.3); Mean Corpuscular Volume 82.5 fL (83.0-100.0); Mean Platelet Volume 11.5 fL (9.4-12.4); Monocytes # 1.1 K/mcL (0.0-1.3); Monocytes % 5.6 %; Platelet Count 257 K/mcL (140-400); Red Blood Count 5.66 M/mcL (4.19-5.50); Red Cell Distribution Width 12.4 % (11.5-14.5); Segmented Neutrophils % 81.5 %; White Blood Count 19.6 K/mcL (4.3-11.1)
[2020-01-02 08:50] LABS: ABG Base Excess 4 mEq/L (-2 to 3); ABG HCO3 28 mEq/L (21-27); ABG Oxygen Saturation 90 % (95-98); ABG PCO2 37 mmHg (35-45); ABG PH 7.49 pH Units (7.32-7.45); ABG PO2 54 mmHg (85-104); ABG TCO2 29 mEq/L (20-26)
[2020-01-02 08:51] LABS: BUN/Creatinine Ratio 33 (6-26); Blood Urea Nitrogen 45 mg/dL (8-23); Carbon Dioxide 25 mEq/L (23-29); Chloride 92 mEq/L (98-107); Glucose 269 mg/dL (70-105); Magnesium 1.7 mg/dL (1.6-2.6); Osmolality,Calculated 293 (280-300); Sodium 131 mEq/L (136-145); eGFR For African Americans > 60 (> 60); eGFR For Non-African Americans 51 (> 60)
[2020-01-02] MEDS: Insulin DETEMIR 100 UNIT/ML X5UNITS SQ SCH ×2 (08:56→19:44)
[2020-01-02] MEDS: Insulin LISPRO 300 UNITS/3 ML VIAL SQ SCH ×4 (09:06→20:24)
[2020-01-02] MEDS ORDERED: Dexamethasone 4 MG/ML VIAL IVP ONE (09:20)
[2020-01-02] MEDS ORDERED: 0.9 % Sodium Chloride 1,000 ML ONE (10:39)
[2020-01-02] MEDS ORDERED: *HR* Propofol 200 MG/20 ML VIAL IVP ONE (11:07)
[2020-01-02] MEDS ORDERED: *HR* Rocuronium Bromide 50 MG/5 ML VIAL IVP ONE (11:07)
[2020-01-02] MEDS ORDERED: *HR* Midazolam HCl 5 MG/5 ML VIAL IVP ONE (11:07)
[2020-01-02] MEDS ORDERED: *HR* Midazolam HCl 2 MG/2 ML VIAL IVP ONE (11:07)
[2020-01-02] MEDS: FentaNYL (PF) 1,000 MCG/100 ML IV.SOLN IVC SCH ×3 (11:11→20:39)
[2020-01-02] MEDS: Norepinephrine 4 MG/254 ML IV.SOLN IVC SCH (11:11)
[2020-01-02] MEDS ORDERED: Dexmedetomidine HCl 400 MCG/100 ML MLS IVC SCH (11:30)
[2020-01-02] MEDS: carvediloL 6.25 MG TABLET PO SCH (11:37)
[2020-01-02] MEDS: Cholestyramine 4 GM POWD.PACK PO SCH (11:37)
[2020-01-02] MEDS: Azithromycin 250 MG TABLET PO SCH (11:37)
[2020-01-02] MEDS ORDERED: Artificial Tears SOLN 15 ML BOTTLE BOTH EYES PRN (12:13)
[2020-01-02] MEDS: Phenylephrine 10 MG in 0.9 % Sodium Chloride 250 ML IVC SCH ×4 (12:14→23:20)
[2020-01-02] MEDS: Midazolam HCl 50 MG/100 ML IV.SOLN IVC SCH (12:25)
[2020-01-02] MEDS: Cisatracurium 200 MG in 0.9 % Sodium Chloride 180 ML IVC SCH ×2 (12:25→21:04)
[2020-01-02 12:34] LABS: ABG Base Excess 3 mEq/L (-2 to 3); ABG HCO3 29 mEq/L (21-27); ABG Oxygen Saturation 99 % (95-98); ABG PCO2 49 mmHg (35-45); ABG PH 7.38 pH Units (7.32-7.45); ABG PO2 164 mmHg (85-104); ABG TCO2 31 mEq/L (20-26); Blood Gas VT 480 cc
[2020-01-02] MEDS ORDERED: *HR* Metoprolol 5 MG/5 ML VIAL IVP PRN (14:25)
[2020-01-02] MEDS: Dexamethasone 4 MG/ML VIAL IVP SCH (14:48)
[2020-01-02 15:10] LABS: Albumin 3.6 g/dL (3.5-5.7); Albumin/Globulin Ratio 0.9 (1.1-2.2); Bilirubin,Direct 0.2 mg/dL (0.0-0.2); Bilirubin,Indirect 0.9 mg/dL (0.0-1.0); Bilirubin,Total 1.1 mg/dL (0.3-1.0); Globulin 4.2 g/dL (2.4-3.5); Total Protein 7.8 g/dL (6.4-8.9); Troponin I 0.06 ng/mL (< 0.04)
[2020-01-02] MEDS: Cefepime HCl 2,000 MG in Water for inj. (sterile) 20 ML IVP SCH ×2 (15:45→23:16)
[2020-01-02] MEDS: Pantoprazole 40 MG VIAL IVP SCH (15:45)
[2020-01-02] MEDS: Artificial Tears SOLN 15 ML BOTTLE BOTH EYES SCH ×3 (16:44→23:16)
[2020-01-02] MEDS ORDERED: Remdesivir 200 MG in 0.9 % Sodium Chloride 210 ML IVPB ONE (17:00)
[2020-01-02] MEDS: Chlorhexidine Rinse 15 ML MOUTHWASH MM SCH (19:44)
[2020-01-02] MEDS: Budesonide/Formoterol 160/4.5 1 PUFF INH IH SCH (20:34)
[2020-01-03] MEDS: Insulin LISPRO 300 UNITS/3 ML VIAL SQ SCH ×7 (00:05→23:35)
[2020-01-03] MEDS: Phenylephrine 10 MG in 0.9 % Sodium Chloride 250 ML IVC SCH ×6 (01:57→12:58)
[2020-01-03] MEDS: FentaNYL (PF) 1,000 MCG/100 ML IV.SOLN IVC SCH ×4 (02:12→23:37)
[2020-01-03 02:55] LABS: VBG Ionized Calcium 1.04 mmol/L (1.15-1.35)
[2020-01-03 02:55] LABS: Basophils % 0.6 %; Lymphocytes % 5.7 %; Monocytes % 3.7 %; Red Cell Distribution Width 12.8 % (11.5-14.5)
[2020-01-03 02:57] LABS: Basophils # 0.2 K/mcL (0.0-0.2); Hematocrit 44.9 % (37.5-50.1); Hemoglobin 14.7 g/dL (12.9-16.9); Immature Granulocytes % 4.2 % (0-4); Lymphocytes # 1.6 K/mcL (0.6-4.6); Mean Corpuscular HGB Conc 32.7 g/dL (31.6-35.5); Mean Corpuscular Hemoglobin 28.5 pg (28.0-33.3); Mean Corpuscular Volume 87.2 fL (83.0-100.0); Mean Platelet Volume 11.6 fL (9.4-12.4); Neutrophils # 23.9 K/mcL (1.6-8.9); Nucleated Red Blood Cells 0.1 /100 WBC (0); Platelet Count 304 K/mcL (140-400); Red Blood Count 5.15 M/mcL (4.19-5.50); Segmented Neutrophils % 85.8 %; White Blood Count 27.9 K/mcL (4.3-11.1)
[2020-01-03 03:11] LABS: Alanine Aminotransferase 11 Units/L (7-52); Albumin 2.9 g/dL (3.5-5.7); Albumin/Globulin Ratio 0.8 (1.1-2.2); Alkaline Phosphatase 45 Units/L (34-104); Aspartate Amino Transferase 18 Units/L (13-39); BUN/Creatinine Ratio 32 (6-26); Bilirubin,Direct 0.4 mg/dL (0.0-0.2); Bilirubin,Indirect 0.5 mg/dL (0.0-1.0); Bilirubin,Total 0.9 mg/dL (0.3-1.0); Blood Urea Nitrogen 45 mg/dL (8-23); Calcium 8.1 mg/dL (8.6-10.3); Carbon Dioxide 26 mEq/L (23-29); Chloride 97 mEq/L (98-107); Globulin 3.7 g/dL (2.4-3.5); Glucose 166 mg/dL (70-105); Magnesium 1.6 mg/dL (1.6-2.6); Osmolality,Calculated 289 (280-300); Phosphorous 3.9 mg/dL (2.7-4.5); Potassium 3.8 mEq/L (3.5-5.1); Sodium 132 mEq/L (136-145); Total Protein 6.6 g/dL (6.4-8.9); eGFR For African Americans > 60 (> 60); eGFR For Non-African Americans 50 (> 60)
[2020-01-03 03:24] LABS: Platelet Estimate Normal (Normal)
[2020-01-03] MEDS: Norepinephrine 4 MG/254 ML IV.SOLN IVC SCH ×2 (03:30→14:44)
[2020-01-03] MEDS: Artificial Tears SOLN 15 ML BOTTLE BOTH EYES SCH ×6 (03:31→23:18)
[2020-01-03] MEDS: Calcium Gluconate 1gm/50mL 1 GM/50 ML BAG IVPB PRN (05:01)
[2020-01-03 05:13] LABS: ABG Base Excess 1 mEq/L (-2 to 3); ABG HCO3 28 mEq/L (21-27); ABG Oxygen Saturation 95 % (95-98); ABG PCO2 56 mmHg (35-45); ABG PH 7.31 pH Units (7.32-7.45); ABG PO2 86 mmHg (85-104); ABG TCO2 30 mEq/L (20-26); Blood Gas Modality ASSIST CONTROL; Blood Gas VT 480 cc
[2020-01-03] MEDS: Budesonide/Formoterol 160/4.5 1 PUFF INH IH SCH ×2 (07:15→20:07)
[2020-01-03] MEDS: Chlorhexidine Rinse 15 ML MOUTHWASH MM SCH ×2 (07:58→20:33)
[2020-01-03] MEDS: Cefepime HCl 2,000 MG in Water for inj. (sterile) 20 ML IVP SCH ×3 (07:58→23:18)
[2020-01-03] MEDS: Dexamethasone 4 MG/ML VIAL IVP SCH (07:58)
[2020-01-03] MEDS: Insulin DETEMIR 100 UNIT/ML X5UNITS SQ SCH ×2 (07:59→20:31)
[2020-01-03] MEDS: Azithromycin 250 MG TABLET PO SCH (07:59)
[2020-01-03] MEDS: Pantoprazole 40 MG VIAL IVP SCH (07:59)
[2020-01-03] MEDS ORDERED: *HR* Heparin 5,000 UNIT/ML VIAL IVP PRN ×2 (09:51)
[2020-01-03] MEDS ORDERED: *HR* Heparin 5,000 UNIT/ML VIAL IVP ONE (09:51)
[2020-01-03] MEDS ORDERED: Heparin 25,000UNIT/250ML 1/2NS 25,000 UNIT/250 ML IV.SOLN IVC SCH (10:00)
[2020-01-03 11:16] LABS: Basophils # 0.2 K/mcL (0.0-0.2); Basophils % 0.7 %; Hematocrit 44.2 % (37.5-50.1); Hemoglobin 14.2 g/dL (12.9-16.9); Immature Granulocytes % 4.8 % (0-4); Lymphocytes % 4.1 %; Mean Corpuscular HGB Conc 32.1 g/dL (31.6-35.5); Mean Corpuscular Hemoglobin 28.3 pg (28.0-33.3); Mean Corpuscular Volume 88.2 fL (83.0-100.0); Mean Platelet Volume 11.5 fL (9.4-12.4); Monocytes # 0.9 K/mcL (0.0-1.3); Monocytes % 3.6 %; Neutrophils # 20.8 K/mcL (1.6-8.9); Nucleated Red Blood Cells 0.1 /100 WBC (0); Platelet Count 298 K/mcL (140-400); Red Blood Count 5.01 M/mcL (4.19-5.50); Red Cell Distribution Width 13.1 % (11.5-14.5); Segmented Neutrophils % 86.8 %
[2020-01-03 11:18] LABS: INR 1.4; Prothrombin Time 15.9 Seconds (9.4-12.1)
[2020-01-03 11:20] LABS: VBG Ionized Calcium 1.05 mmol/L (1.15-1.35)
[2020-01-03 11:42] LABS: Albumin 2.8 g/dL (3.5-5.7); Albumin/Globulin Ratio 0.8 (1.1-2.2); Bilirubin,Total 0.9 mg/dL (0.3-1.0); Globulin 3.6 g/dL (2.4-3.5); Magnesium 1.8 mg/dL (1.6-2.6); Phosphorous 3.7 mg/dL (2.7-4.5); Potassium 4.3 mEq/L (3.5-5.1); Total Protein 6.4 g/dL (6.4-8.9)
[2020-01-03] MEDS: Midazolam HCl 50 MG/100 ML IV.SOLN IVC SCH (12:09)
[2020-01-03] MEDS: Heparin 25,000UNIT/250ML 1/2NS 25,000 UNIT/250 ML IV.SOLN IVC SCH ×2 (13:09→23:04)
[2020-01-03] MEDS: Cisatracurium 200 MG in 0.9 % Sodium Chloride 180 ML IVC SCH (14:47)
[2020-01-03] MEDS: Phenylephrine 50 MG in 0.9 % Sodium Chloride 250 ML IVC SCH (15:23)
[2020-01-03] MEDS: Remdesivir 100 MG in 0.9 % Sodium Chloride 230 ML IVPB SCH (18:29)
[2020-01-03] MEDS: Doxycycline 100 MG in 0.9 % Sodium Chloride Mini Bag 100 ML IVPB SCH (22:53)
[2020-01-04] MEDS: Norepinephrine 4 MG/254 ML IV.SOLN IVC SCH ×2 (02:00→14:34)
[2020-01-04] MEDS: Heparin 25,000UNIT/250ML 1/2NS 25,000 UNIT/250 ML IV.SOLN IVC SCH ×2 (02:52→21:04)
[2020-01-04] MEDS: Insulin LISPRO 300 UNITS/3 ML VIAL SQ SCH ×6 (03:43→23:46)
[2020-01-04] MEDS: Artificial Tears SOLN 15 ML BOTTLE BOTH EYES SCH ×6 (03:43→23:09)
[2020-01-04 04:43] LABS: ABG Base Excess -2 mEq/L (-2 to 3); ABG HCO3 27 mEq/L (21-27); ABG Oxygen Saturation 88 % (95-98); ABG PCO2 62 mmHg (35-45); ABG PH 7.25 pH Units (7.32-7.45); ABG PO2 66 mmHg (85-104); ABG TCO2 29 mEq/L (20-26); Blood Gas Modality ASSIST CONTROL; Blood Gas VT 480 cc
[2020-01-04] MEDS: FentaNYL (PF) 1,000 MCG/100 ML IV.SOLN IVC SCH ×4 (05:04→21:05)
[2020-01-04 06:11] LABS: Basophils # 0.2 K/mcL (0.0-0.2); Basophils % 0.9 %; Hematocrit 41.6 % (37.5-50.1); Hemoglobin 13.3 g/dL (12.9-16.9); Immature Granulocytes % 5.4 % (0-4); Lymphocytes % 5.5 %; Mean Corpuscular Hemoglobin 28.2 pg (28.0-33.3); Mean Corpuscular Volume 88.1 fL (83.0-100.0); Mean Platelet Volume 11.9 fL (9.4-12.4); Monocytes # 0.9 K/mcL (0.0-1.3); Platelet Count 269 K/mcL (140-400); Red Blood Count 4.72 M/mcL (4.19-5.50); Red Cell Distribution Width 13.2 % (11.5-14.5); Segmented Neutrophils % 83.2 %; White Blood Count 18.7 K/mcL (4.3-11.1)
[2020-01-04 06:11] LABS: VBG Ionized Calcium 1.02 mmol/L (1.15-1.35)
[2020-01-04 06:25] LABS: Neutrophils # 15.6 K/mcL (1.6-8.9)
[2020-01-04 06:28] LABS: Alanine Aminotransferase 12 Units/L (7-52); Albumin 2.6 g/dL (3.5-5.7); Albumin/Globulin Ratio 0.7 (1.1-2.2); Alkaline Phosphatase 58 Units/L (34-104); Aspartate Amino Transferase 21 Units/L (13-39); BUN/Creatinine Ratio 30 (6-26); Bilirubin,Direct 0.2 mg/dL (0.0-0.2); Bilirubin,Indirect 0.3 mg/dL (0.0-1.0); Bilirubin,Total 0.5 mg/dL (0.3-1.0); Blood Urea Nitrogen 39 mg/dL (8-23); Calcium 7.8 mg/dL (8.6-10.3); Carbon Dioxide 23 mEq/L (23-29); Chloride 102 mEq/L (98-107); Globulin 3.7 g/dL (2.4-3.5); Glucose 267 mg/dL (70-105); Magnesium 1.8 mg/dL (1.6-2.6); Osmolality,Calculated 299 (280-300); Phosphorous 3.8 mg/dL (2.7-4.5); Potassium 4.8 mEq/L (3.5-5.1); Sodium 135 mEq/L (136-145); Total Protein 6.3 g/dL (6.4-8.9); eGFR For African Americans > 60 (> 60); eGFR For Non-African Americans 55 (> 60)
[2020-01-04] MEDS: Calcium Gluconate 1gm/50mL 1 GM/50 ML BAG IVPB PRN (06:48)
[2020-01-04 07:02] LABS: Platelet Estimate Normal (Normal)
[2020-01-04] MEDS: Budesonide/Formoterol 160/4.5 1 PUFF INH IH SCH ×2 (07:47→20:30)
[2020-01-04] MEDS: Dexamethasone 4 MG/ML VIAL IVP SCH (10:14)
[2020-01-04] MEDS: Chlorhexidine Rinse 15 ML MOUTHWASH MM SCH ×2 (10:15→19:38)
[2020-01-04] MEDS: Furosemide 40 MG/4 ML VIAL IVP SCH ×2 (10:15→19:38)
[2020-01-04] MEDS: Cefepime HCl 2,000 MG in Water for inj. (sterile) 20 ML IVP SCH ×3 (10:15→23:08)
[2020-01-04] MEDS: Pantoprazole 40 MG VIAL IVP SCH (10:15)
[2020-01-04] MEDS: Insulin DETEMIR 100 UNIT/ML X5UNITS SQ SCH ×2 (10:58→19:38)
[2020-01-04] MEDS: Doxycycline 100 MG in 0.9 % Sodium Chloride Mini Bag 100 ML IVPB SCH ×2 (11:05→23:08)
[2020-01-04] MEDS: Midazolam HCl 50 MG/100 ML IV.SOLN IVC SCH (12:42)
[2020-01-04] MEDS: Cisatracurium 200 MG in 0.9 % Sodium Chloride 180 ML IVC SCH (13:14)
[2020-01-04 14:17] LABS: ABG Base Excess -1 mEq/L (-2 to 3); ABG HCO3 25 mEq/L (21-27); ABG Oxygen Saturation 90 % (95-98); ABG PCO2 49 mmHg (35-45); ABG PH 7.32 pH Units (7.32-7.45); ABG PO2 64 mmHg (85-104); ABG TCO2 27 mEq/L (20-26); Blood Gas Modality AF; Blood Gas VT 480 cc
[2020-01-04] MEDS: Phenylephrine 50 MG in 0.9 % Sodium Chloride 250 ML IVC SCH (16:43)
[2020-01-04] MEDS: Remdesivir 100 MG in 0.9 % Sodium Chloride 230 ML IVPB SCH (16:58)
[2020-01-05] MEDS: FentaNYL (PF) 1,000 MCG/100 ML IV.SOLN IVC SCH ×5 (02:00→21:56)
[2020-01-05 03:31] LABS: VBG Ionized Calcium 1.06 mmol/L (1.15-1.35)
[2020-01-05 03:42] LABS: Hematocrit 39.3 % (37.5-50.1); Hemoglobin 12.9 g/dL (12.9-16.9); Mean Corpuscular HGB Conc 32.8 g/dL (31.6-35.5); Mean Corpuscular Hemoglobin 29.1 pg (28.0-33.3); Mean Corpuscular Volume 88.5 fL (83.0-100.0); Mean Platelet Volume 11.8 fL (9.4-12.4); Platelet Count 255 K/mcL (140-400); Red Blood Count 4.44 M/mcL (4.19-5.50); Red Cell Distribution Width 13.3 % (11.5-14.5)
[2020-01-05 03:47] LABS: Albumin 2.5 g/dL (3.5-5.7); Albumin/Globulin Ratio 0.7 (1.1-2.2); Bilirubin,Direct 0.2 mg/dL (0.0-0.2); Bilirubin,Indirect 0.2 mg/dL (0.0-1.0); Bilirubin,Total 0.4 mg/dL (0.3-1.0); Calcium 7.7 mg/dL (8.6-10.3); Globulin 3.4 g/dL (2.4-3.5); Phosphorous 2.6 mg/dL (2.7-4.5); Total Protein 5.9 g/dL (6.4-8.9)
[2020-01-05 04:16] LABS: ABG Base Excess 0 mEq/L (-2 to 3); ABG HCO3 26 mEq/L (21-27); ABG Oxygen Saturation 90 % (95-98); ABG PCO2 46 mmHg (35-45); ABG PH 7.36 pH Units (7.32-7.45); ABG PO2 61 mmHg (85-104); ABG TCO2 27 mEq/L (20-26); Blood Gas Modality AF; Blood Gas VT 480 cc
[2020-01-05] MEDS: Insulin LISPRO 300 UNITS/3 ML VIAL SQ SCH ×6 (04:31→23:36)
[2020-01-05] MEDS: Artificial Tears SOLN 15 ML BOTTLE BOTH EYES SCH ×6 (04:31→23:11)
[2020-01-05 07:00] LABS: Monocytes # 0.7 K/mcL (0.0-1.3); Platelet Estimate Normal (Normal)
[2020-01-05] MEDS: Budesonide/Formoterol 160/4.5 1 PUFF INH IH SCH ×2 (07:32→21:29)
[2020-01-05] MEDS: Dexamethasone 4 MG/ML VIAL IVP SCH (09:09)
[2020-01-05] MEDS: Cefepime HCl 2,000 MG in Water for inj. (sterile) 20 ML IVP SCH ×3 (09:10→23:11)
[2020-01-05] MEDS: Pantoprazole 40 MG VIAL IVP SCH (09:10)
[2020-01-05] MEDS: Chlorhexidine Rinse 15 ML MOUTHWASH MM SCH ×2 (09:11→19:42)
[2020-01-05] MEDS: Furosemide 40 MG/4 ML VIAL IVP SCH ×2 (09:11→19:42)
[2020-01-05] MEDS: Insulin DETEMIR 100 UNIT/ML X5UNITS SQ SCH ×2 (09:14→20:20)
[2020-01-05] MEDS ORDERED: 0.9 % Sodium Chloride 1,000 ML ONE (10:20)
[2020-01-05] MEDS: Doxycycline 100 MG in 0.9 % Sodium Chloride Mini Bag 100 ML IVPB SCH ×3 (11:08→23:10)
[2020-01-05] MEDS ORDERED: Lidocaine -MPF 1% 5 ML AMPUL INFILT ONE (11:14)
[2020-01-05] MEDS: Cisatracurium 200 MG in 0.9 % Sodium Chloride 180 ML IVC SCH (12:12)
[2020-01-05] MEDS: Heparin 25,000UNIT/250ML 1/2NS 25,000 UNIT/250 ML IV.SOLN IVC SCH (14:48)
[2020-01-05] MEDS: Phenylephrine 50 MG in 0.9 % Sodium Chloride 250 ML IVC SCH (17:01)
[2020-01-05] MEDS: Remdesivir 100 MG in 0.9 % Sodium Chloride 230 ML IVPB SCH (17:17)
[2020-01-05] MEDS: Midazolam HCl 50 MG/100 ML IV.SOLN IVC SCH (21:32)
[2020-01-06] MEDS: Heparin 25,000UNIT/250ML 1/2NS 25,000 UNIT/250 ML IV.SOLN IVC SCH ×2 (01:06→09:03)
[2020-01-06] MEDS: FentaNYL (PF) 2,500 MCG/50 ML IV.SOLN IVC SCH ×2 (03:10→18:18)
[2020-01-06] MEDS: Artificial Tears SOLN 15 ML BOTTLE BOTH EYES SCH ×5 (03:48→20:53)
[2020-01-06] MEDS: Insulin LISPRO 300 UNITS/3 ML VIAL SQ SCH ×6 (04:19→20:52)
[2020-01-06 04:28] LABS: Hematocrit 40.4 % (37.5-50.1); Mean Corpuscular HGB Conc 32.2 g/dL (31.6-35.5); Mean Corpuscular Hemoglobin 28.2 pg (28.0-33.3); Mean Corpuscular Volume 87.6 fL (83.0-100.0); Nucleated Red Blood Cells 0.1 /100 WBC (0); Platelet Count 241 K/mcL (140-400); Red Blood Count 4.61 M/mcL (4.19-5.50); Red Cell Distribution Width 13.7 % (11.5-14.5); White Blood Count 16.9 K/mcL (4.3-11.1)
[2020-01-06 04:33] LABS: VBG Ionized Calcium 0.99 mmol/L (1.15-1.35)
[2020-01-06 04:47] LABS: Alanine Aminotransferase 11 Units/L (7-52); Albumin 2.6 g/dL (3.5-5.7); Albumin/Globulin Ratio 0.8 (1.1-2.2); Alkaline Phosphatase 49 Units/L (34-104); Aspartate Amino Transferase 17 Units/L (13-39); BUN/Creatinine Ratio 42 (6-26); Bilirubin,Direct 0.2 mg/dL (0.0-0.2); Bilirubin,Indirect 0.3 mg/dL (0.0-1.0); Bilirubin,Total 0.5 mg/dL (0.3-1.0); Blood Urea Nitrogen 58 mg/dL (8-23); Calcium 7.7 mg/dL (8.6-10.3); Carbon Dioxide 24 mEq/L (23-29); Chloride 103 mEq/L (98-107); Globulin 3.4 g/dL (2.4-3.5); Glucose 315 mg/dL (70-105); Magnesium 1.8 mg/dL (1.6-2.6); Osmolality,Calculated 312 (280-300); Phosphorous 4.7 mg/dL (2.7-4.5); Sodium 137 mEq/L (136-145); eGFR For African Americans > 60 (> 60); eGFR For Non-African Americans 51 (> 60)
[2020-01-06 04:56] LABS: Neutrophils # 14.2 K/mcL (1.6-8.9)
[2020-01-06 04:57] LABS: Platelet Estimate Normal (Normal); Reactive Lymphocytes Present (Not Present); Toxic Granulation Present (Not Present); Toxic Vacuolation Present (Not Present)
[2020-01-06 05:11] LABS: Activated Partial Thrombo Time 90.7 Seconds (26.0-36.0)
[2020-01-06 06:21] LABS: ABG Base Excess 1 mEq/L (-2 to 3); ABG HCO3 27 mEq/L (21-27); ABG Oxygen Saturation 88 % (95-98); ABG PCO2 52 mmHg (35-45); ABG PH 7.33 pH Units (7.32-7.45); ABG PO2 59 mmHg (85-104); ABG TCO2 29 mEq/L (20-26); Blood Gas VT 450 cc
[2020-01-06] MEDS: Budesonide/Formoterol 160/4.5 1 PUFF INH IH SCH ×2 (07:33→20:11)
[2020-01-06] MEDS: Furosemide 40 MG/4 ML VIAL IVP SCH ×2 (07:47→20:24)
[2020-01-06] MEDS: Chlorhexidine Rinse 15 ML MOUTHWASH MM SCH ×2 (07:47→20:23)
[2020-01-06] MEDS: Cefepime HCl 2,000 MG in Water for inj. (sterile) 20 ML IVP SCH ×2 (07:48→16:32)
[2020-01-06] MEDS: Dexamethasone 4 MG/ML VIAL IVP SCH (07:48)
[2020-01-06] MEDS: Calcium Gluconate 1gm/50mL 1 GM/50 ML BAG IVPB PRN (07:50)
[2020-01-06] MEDS: Pantoprazole 40 MG VIAL IVP SCH (07:50)
[2020-01-06] MEDS: Insulin DETEMIR 100 UNIT/ML X5UNITS SQ SCH ×2 (07:51→20:23)
[2020-01-06] MEDS: Midazolam HCl 50 MG/100 ML IV.SOLN IVC SCH ×2 (08:00→16:31)
[2020-01-06] MEDS: Cisatracurium 200 MG in 0.9 % Sodium Chloride 180 ML IVC SCH (10:32)
[2020-01-06] MEDS: Doxycycline 100 MG in 0.9 % Sodium Chloride Mini Bag 100 ML IVPB SCH (12:38)
[2020-01-06] MEDS: Phenylephrine 50 MG in 0.9 % Sodium Chloride 250 ML IVC SCH (16:36)
[2020-01-06] MEDS: Remdesivir 100 MG in 0.9 % Sodium Chloride 230 ML IVPB SCH (17:08)
[2020-01-07] MEDS: Doxycycline 100 MG in 0.9 % Sodium Chloride Mini Bag 100 ML IVPB SCH ×3 (00:15→22:55)
[2020-01-07] MEDS: Artificial Tears SOLN 15 ML BOTTLE BOTH EYES SCH ×6 (00:16→20:27)
[2020-01-07] MEDS: Cefepime HCl 2,000 MG in Water for inj. (sterile) 20 ML IVP SCH ×3 (00:16→16:46)
[2020-01-07] MEDS: Insulin LISPRO 300 UNITS/3 ML VIAL SQ SCH ×6 (00:57→21:07)
[2020-01-07 04:38] LABS: ABG Base Excess 1 mEq/L (-2 to 3); ABG HCO3 28 mEq/L (21-27); ABG Oxygen Saturation 97 % (95-98); ABG PCO2 54 mmHg (35-45); ABG PH 7.32 pH Units (7.32-7.45); ABG PO2 101 mmHg (85-104); ABG TCO2 30 mEq/L (20-26); Blood Gas VT 450 cc
[2020-01-07] MEDS: Midazolam HCl 50 MG/100 ML IV.SOLN IVC SCH ×3 (04:41→23:02)
[2020-01-07] MEDS: Heparin 25,000UNIT/250ML 1/2NS 25,000 UNIT/250 ML IV.SOLN IVC SCH ×2 (04:43→13:41)
[2020-01-07 04:53] LABS: Hematocrit 42.4 % (37.5-50.1); Hemoglobin 13.5 g/dL (12.9-16.9); Lymphocytes # 0.9 K/mcL (0.6-4.6); Mean Corpuscular HGB Conc 31.8 g/dL (31.6-35.5); Mean Corpuscular Hemoglobin 28.2 pg (28.0-33.3); Mean Corpuscular Volume 88.7 fL (83.0-100.0); Mean Platelet Volume 12.8 fL (9.4-12.4); Nucleated Red Blood Cells 0.2 /100 WBC (0); Platelet Count 177 K/mcL (140-400); Red Blood Count 4.78 M/mcL (4.19-5.50); Red Cell Distribution Width 13.7 % (11.5-14.5); White Blood Count 15.5 K/mcL (4.3-11.1)
[2020-01-07 05:13] LABS: Alanine Aminotransferase 24 Units/L (7-52); Albumin 2.7 g/dL (3.5-5.7); Albumin/Globulin Ratio 0.8 (1.1-2.2); Alkaline Phosphatase 48 Units/L (34-104); Aspartate Amino Transferase 44 Units/L (13-39); BUN/Creatinine Ratio 55 (6-26); Bilirubin,Direct 0.3 mg/dL (0.0-0.2); Bilirubin,Indirect 0.2 mg/dL (0.0-1.0); Bilirubin,Total 0.5 mg/dL (0.3-1.0); Blood Urea Nitrogen 75 mg/dL (8-23); Carbon Dioxide 26 mEq/L (23-29); Chloride 103 mEq/L (98-107); Globulin 3.5 g/dL (2.4-3.5); Glucose 350 mg/dL (70-105); Magnesium 2.1 mg/dL (1.6-2.6); Osmolality,Calculated 322 (280-300); Phosphorous 4.8 mg/dL (2.7-4.5); Potassium 4.3 mEq/L (3.5-5.1); Sodium 138 mEq/L (136-145); Total Protein 6.2 g/dL (6.4-8.9); eGFR For African Americans > 60 (> 60); eGFR For Non-African Americans 51 (> 60)
[2020-01-07 06:33] LABS: Monocytes # 1.9 K/mcL (0.0-1.3); Neutrophils # 12.7 K/mcL (1.6-8.9); Toxic Granulation Present (Not Present); Toxic Vacuolation Present (Not Present)
[2020-01-07 06:34] LABS: Platelet Estimate Normal (Normal); Reactive Lymphocytes Present (Not Present)
[2020-01-07 07:16] LABS: Activated Partial Thrombo Time 93.9 Seconds (26.0-36.0)
[2020-01-07] MEDS: Budesonide/Formoterol 160/4.5 1 PUFF INH IH SCH ×2 (07:48→19:59)
[2020-01-07] MEDS: Dexamethasone 4 MG/ML VIAL IVP SCH (09:22)
[2020-01-07] MEDS: Pantoprazole 40 MG VIAL IVP SCH (09:22)
[2020-01-07] MEDS: Furosemide 40 MG/4 ML VIAL IVP SCH ×2 (09:24→20:28)
[2020-01-07] MEDS: Chlorhexidine Rinse 15 ML MOUTHWASH MM SCH ×2 (09:24→20:28)
[2020-01-07] MEDS: Insulin DETEMIR 100 UNIT/ML X5UNITS SQ SCH (09:25)
[2020-01-07] MEDS: FentaNYL (PF) 2,500 MCG/50 ML IV.SOLN IVC SCH (09:26)
[2020-01-07] MEDS: Cisatracurium 200 MG in 0.9 % Sodium Chloride 180 ML IVC SCH (10:29)
[2020-01-07] MEDS: Norepinephrine 4 MG/254 ML IV.SOLN IVC SCH (12:06)
[2020-01-07] MEDS: Phenylephrine 50 MG in 0.9 % Sodium Chloride 250 ML IVC SCH (15:38)
[2020-01-07] MEDS: Remdesivir 100 MG in 0.9 % Sodium Chloride 230 ML IVPB SCH (16:43)
[2020-01-07] MEDS: Lactulose Oral Soln 20 GM/30 ML UDC PO SCH (20:27)
[2020-01-07] MEDS ORDERED: Insulin DETEMIR 100 UNIT/ML X5UNITS SQ SCH ×2 (21:00)
[2020-01-07] MEDS ORDERED: Bisacodyl 10 MG RECTAL SUPPOSITORY RC SCH (21:00)
[2020-01-07] MEDS: Docusate Oral Soln 100 MG/10 ML UDC GTUBE SCH (21:46)
[2020-01-08] MEDS: Artificial Tears SOLN 15 ML BOTTLE BOTH EYES SCH ×7 (00:09→23:33)
[2020-01-08] MEDS: Cefepime HCl 2,000 MG in Water for inj. (sterile) 20 ML IVP SCH ×4 (00:09→23:32)
[2020-01-08] MEDS: Heparin 25,000UNIT/250ML 1/2NS 25,000 UNIT/250 ML IV.SOLN IVC SCH ×2 (00:24→20:51)
[2020-01-08] MEDS: Insulin LISPRO 300 UNITS/3 ML VIAL SQ SCH ×6 (00:39→21:28)
[2020-01-08 04:30] LABS: Hematocrit 40.1 % (37.5-50.1); Hemoglobin 12.6 g/dL (12.9-16.9); Mean Corpuscular HGB Conc 31.4 g/dL (31.6-35.5); Mean Corpuscular Hemoglobin 28.5 pg (28.0-33.3); Mean Corpuscular Volume 90.7 fL (83.0-100.0); Mean Platelet Volume 12.9 fL (9.4-12.4); Nucleated Red Blood Cells 0.3 /100 WBC (0); Platelet Count 170 K/mcL (140-400); Red Blood Count 4.42 M/mcL (4.19-5.50); Red Cell Distribution Width 13.7 % (11.5-14.5); White Blood Count 18.4 K/mcL (4.3-11.1)
[2020-01-08 04:30] LABS: VBG Ionized Calcium 1.08 mmol/L (1.15-1.35)
[2020-01-08 04:43] LABS: Alanine Aminotransferase 28 Units/L (7-52); Albumin 2.5 g/dL (3.5-5.7); Albumin/Globulin Ratio 0.8 (1.1-2.2); Alkaline Phosphatase 47 Units/L (34-104); Aspartate Amino Transferase 35 Units/L (13-39); BUN/Creatinine Ratio 65 (6-26); Bilirubin,Direct 0.2 mg/dL (0.0-0.2); Bilirubin,Indirect 0.4 mg/dL (0.0-1.0); Bilirubin,Total 0.6 mg/dL (0.3-1.0); Blood Urea Nitrogen 92 mg/dL (8-23); Calcium 7.9 mg/dL (8.6-10.3); Carbon Dioxide 30 mEq/L (23-29); Chloride 106 mEq/L (98-107); Globulin 3.2 g/dL (2.4-3.5); Glucose 290 mg/dL (70-105); Magnesium 2.1 mg/dL (1.6-2.6); Osmolality,Calculated 333 (280-300); Phosphorous 3.7 mg/dL (2.7-4.5); Potassium 4.5 mEq/L (3.5-5.1); Sodium 142 mEq/L (136-145); Total Protein 5.7 g/dL (6.4-8.9); eGFR For African Americans > 60 (> 60); eGFR For Non-African Americans 50 (> 60)
[2020-01-08 04:44] LABS: ABG Base Excess 3 mEq/L (-2 to 3); ABG HCO3 31 mEq/L (21-27); ABG Oxygen Saturation 92 % (95-98); ABG PCO2 60 mmHg (35-45); ABG PH 7.32 pH Units (7.32-7.45); ABG PO2 72 mmHg (85-104); ABG TCO2 32 mEq/L (20-26); Blood Gas Modality ASSIST CONTROL; Blood Gas VT 450 cc
[2020-01-08 05:26] LABS: Lymphocytes # 2.6 K/mcL (0.6-4.6); Neutrophils # 15.1 K/mcL (1.6-8.9)
[2020-01-08 05:27] LABS: Platelet Estimate Normal (Normal); Toxic Granulation Present (Not Present); Toxic Vacuolation Present (Not Present)
[2020-01-08] MEDS: Calcium Gluconate 1gm/50mL 1 GM/50 ML BAG IVPB PRN (06:28)
[2020-01-08] MEDS: FentaNYL (PF) 2,500 MCG/50 ML IV.SOLN IVC SCH ×2 (08:03→21:10)
[2020-01-08] MEDS: Budesonide/Formoterol 160/4.5 1 PUFF INH IH SCH ×2 (08:27→22:16)
[2020-01-08] MEDS: Pantoprazole 40 MG VIAL IVP SCH (09:02)
[2020-01-08] MEDS: Dexamethasone 4 MG/ML VIAL IVP SCH (09:03)
[2020-01-08] MEDS: Furosemide 40 MG/4 ML VIAL IVP SCH ×2 (09:06→20:57)
[2020-01-08] MEDS: Insulin DETEMIR 100 UNIT/ML X5UNITS SQ SCH ×2 (09:07→21:27)
[2020-01-08] MEDS: Docusate Oral Soln 100 MG/10 ML UDC GTUBE SCH ×2 (09:09→20:57)
[2020-01-08] MEDS: Chlorhexidine Rinse 15 ML MOUTHWASH MM SCH ×2 (09:10→20:57)
[2020-01-08 10:06] LABS: VBG Ionized Calcium 1.19 mmol/L (1.15-1.35)
[2020-01-08] MEDS: Midazolam HCl 50 MG/100 ML IV.SOLN IVC SCH ×2 (11:30→22:15)
[2020-01-08] MEDS: Cisatracurium 200 MG in 0.9 % Sodium Chloride 180 ML IVC SCH (11:31)
[2020-01-08] MEDS: Norepinephrine 4 MG/254 ML IV.SOLN IVC SCH (11:46)
[2020-01-08] MEDS: Doxycycline 100 MG in 0.9 % Sodium Chloride Mini Bag 100 ML IVPB SCH ×2 (11:49→23:33)
[2020-01-08 13:10] LABS: VBG Ionized Calcium 1.11 mmol/L (1.15-1.35)
[2020-01-08] MEDS: Remdesivir 100 MG in 0.9 % Sodium Chloride 230 ML IVPB SCH ×2 (17:06→17:47)
[2020-01-08 17:44] LABS: Uric Acid 6.5 mg/dL (2.3-7.6)
[2020-01-08 19:48] LABS: Protein/Creatinine Ratio,Urine 1.2 mg/mg (0.00-0.20)
[2020-01-08] MEDS: Phenylephrine 50 MG in 0.9 % Sodium Chloride 250 ML IVC SCH (20:52)
[2020-01-08] MEDS: Lactulose Oral Soln 20 GM/30 ML UDC PO SCH (20:57)
[2020-01-09] MEDS: Insulin LISPRO 300 UNITS/3 ML VIAL SQ SCH ×7 (00:08→23:56)
[2020-01-09] MEDS: Heparin 25,000UNIT/250ML 1/2NS 25,000 UNIT/250 ML IV.SOLN IVC SCH ×2 (02:15→11:41)
[2020-01-09] MEDS: Artificial Tears SOLN 15 ML BOTTLE BOTH EYES SCH ×6 (04:35→23:23)
[2020-01-09 04:43] LABS: ABG Base Excess 3 mEq/L (-2 to 3); ABG HCO3 32 mEq/L (21-27); ABG Oxygen Saturation 96 % (95-98); ABG PCO2 67 mmHg (35-45); ABG PH 7.28 pH Units (7.32-7.45); ABG PO2 98 mmHg (85-104); ABG TCO2 34 mEq/L (20-26); Blood Gas Modality ASSIST CONTROL; Blood Gas VT 450 cc
[2020-01-09 04:48] LABS: VBG Ionized Calcium 1.12 mmol/L (1.15-1.35)
[2020-01-09 04:50] LABS: Nucleated Red Blood Cells 0.5 /100 WBC (0); Red Cell Distribution Width 13.9 % (11.5-14.5)
[2020-01-09 04:51] LABS: Hematocrit 41.2 % (37.5-50.1); Hemoglobin 12.6 g/dL (12.9-16.9); Immature Platelets 14.2 % (1.1-6.1); Mean Corpuscular HGB Conc 30.6 g/dL (31.6-35.5); Mean Corpuscular Hemoglobin 28.5 pg (28.0-33.3); Mean Corpuscular Volume 93.2 fL (83.0-100.0); Mean Platelet Volume 12.7 fL (9.4-12.4); Platelet Count 153 K/mcL (140-400); Red Blood Count 4.42 M/mcL (4.19-5.50); White Blood Count 21.8 K/mcL (4.3-11.1)
[2020-01-09 05:05] LABS: Albumin 2.7 g/dL (3.5-5.7); Albumin/Globulin Ratio 0.8 (1.1-2.2); Bilirubin,Direct 0.3 mg/dL (0.0-0.2); Bilirubin,Indirect 0.2 mg/dL (0.0-1.0); Bilirubin,Total 0.5 mg/dL (0.3-1.0); Calcium 8.1 mg/dL (8.6-10.3); Globulin 3.3 g/dL (2.4-3.5); Magnesium 2.1 mg/dL (1.6-2.6); Phosphorous 3.6 mg/dL (2.7-4.5); Potassium 5.1 mEq/L (3.5-5.1)
[2020-01-09 05:51] LABS: Lymphocytes # 1.3 K/mcL (0.6-4.6); Monocytes # 0.9 K/mcL (0.0-1.3); Neutrophils # 19.6 K/mcL (1.6-8.9)
[2020-01-09 05:52] LABS: Platelet Estimate Normal (Normal); Toxic Granulation Present (Not Present)
[2020-01-09] MEDS: Midazolam HCl 50 MG/100 ML IV.SOLN IVC SCH ×2 (07:51→16:57)
[2020-01-09] MEDS: Cefepime HCl 2,000 MG in Water for inj. (sterile) 20 ML IVP SCH ×3 (07:56→23:24)
[2020-01-09] MEDS: Dexamethasone 4 MG/ML VIAL IVP SCH (07:57)
[2020-01-09] MEDS: Docusate Oral Soln 100 MG/10 ML UDC GTUBE SCH ×2 (07:57→19:44)
[2020-01-09] MEDS: Chlorhexidine Rinse 15 ML MOUTHWASH MM SCH ×2 (07:57→19:44)
[2020-01-09] MEDS: Pantoprazole 40 MG VIAL IVP SCH (07:58)
[2020-01-09] MEDS: Furosemide 40 MG/4 ML VIAL IVP SCH ×2 (07:58→19:44)
[2020-01-09] MEDS: Norepinephrine 4 MG/254 ML IV.SOLN IVC SCH (08:00)
[2020-01-09] MEDS: Insulin DETEMIR 100 UNIT/ML X5UNITS SQ SCH ×2 (08:04→19:47)
[2020-01-09] MEDS: Budesonide/Formoterol 160/4.5 1 PUFF INH IH SCH ×2 (08:13→21:02)
[2020-01-09] MEDS: Cisatracurium 200 MG in 0.9 % Sodium Chloride 180 ML IVC SCH (10:35)
[2020-01-09] MEDS: Doxycycline 100 MG in 0.9 % Sodium Chloride Mini Bag 100 ML IVPB SCH ×2 (10:36→23:21)
[2020-01-09] MEDS: FentaNYL (PF) 2,500 MCG/50 ML IV.SOLN IVC SCH (10:36)
[2020-01-09] MEDS: Phenylephrine 50 MG in 0.9 % Sodium Chloride 250 ML IVC SCH (11:31)
[2020-01-09] MEDS: Remdesivir 100 MG in 0.9 % Sodium Chloride 230 ML IVPB SCH (16:53)
[2020-01-09] MEDS: Lactulose Oral Soln 20 GM/30 ML UDC PO SCH (19:44)
[2020-01-10] MEDS: FentaNYL (PF) 2,500 MCG/50 ML IV.SOLN IVC SCH ×2 (01:10→14:55)
[2020-01-10] MEDS: Heparin 25,000UNIT/250ML 1/2NS 25,000 UNIT/250 ML IV.SOLN IVC SCH ×2 (03:30→20:45)
[2020-01-10] MEDS: Artificial Tears SOLN 15 ML BOTTLE BOTH EYES SCH ×6 (03:35→23:12)
[2020-01-10] MEDS: Midazolam HCl 50 MG/100 ML IV.SOLN IVC SCH ×2 (03:35→14:52)
[2020-01-10 04:14] LABS: ABG Base Excess 2 mEq/L (-2 to 3); ABG HCO3 30 mEq/L (21-27); ABG Oxygen Saturation 91 % (95-98); ABG PCO2 66 mmHg (35-45); ABG PH 7.27 pH Units (7.32-7.45); ABG PO2 71 mmHg (85-104); ABG TCO2 32 mEq/L (20-26); Blood Gas Modality ASSIST CONTROL; Blood Gas VT 450 cc
[2020-01-10] MEDS: Insulin LISPRO 300 UNITS/3 ML VIAL SQ SCH ×6 (04:39→23:48)
[2020-01-10 05:08] LABS: Hematocrit 39.5 % (37.5-50.1); Red Cell Distribution Width 14.1 % (11.5-14.5)
[2020-01-10 05:10] LABS: Hemoglobin 12.1 g/dL (12.9-16.9); Mean Corpuscular HGB Conc 30.6 g/dL (31.6-35.5); Mean Corpuscular Hemoglobin 28.8 pg (28.0-33.3); Mean Platelet Volume 13.2 fL (9.4-12.4); Nucleated Red Blood Cells 0.5 /100 WBC (0); Platelet Count 137 K/mcL (140-400)
[2020-01-10 05:14] LABS: Activated Partial Thrombo Time 53.8 Seconds (26.0-36.0)
[2020-01-10 05:20] LABS: VBG Ionized Calcium 1.11 mmol/L (1.15-1.35)
[2020-01-10 05:26] LABS: Magnesium 2.2 mg/dL (1.6-2.6); Phosphorous 3.7 mg/dL (2.7-4.5)
[2020-01-10 05:30] LABS: Alanine Aminotransferase 25 Units/L (7-52); Albumin 2.6 g/dL (3.5-5.7); Albumin/Globulin Ratio 0.8 (1.1-2.2); Alkaline Phosphatase 54 Units/L (34-104); Aspartate Amino Transferase 31 Units/L (13-39); Bilirubin,Total 0.5 mg/dL (0.3-1.0); Blood Urea Nitrogen > 130 mg/dL (8-23); Calcium 8.6 mg/dL (8.6-10.3); Carbon Dioxide 29 mEq/L (23-29); Chloride 106 mEq/L (98-107); Globulin 3.2 g/dL (2.4-3.5); Glucose 306 mg/dL (70-105); Potassium 5.1 mEq/L (3.5-5.1); Sodium 143 mEq/L (136-145); Total Protein 5.8 g/dL (6.4-8.9); eGFR For African Americans 46 (> 60); eGFR For Non-African Americans 38 (> 60)
[2020-01-10 06:14] LABS: Monocytes # 0.5 K/mcL (0.0-1.3); Neutrophils # 23.4 K/mcL (1.6-8.9)
[2020-01-10 06:15] LABS: Platelet Estimate Normal (Normal); Toxic Granulation Present (Not Present)
[2020-01-10] MEDS ORDERED: *HR* Heparin 5,000 UNIT/ML VIAL CRRT PRN (07:25)
[2020-01-10] MEDS: Budesonide/Formoterol 160/4.5 1 PUFF INH IH SCH ×2 (08:03→20:25)
[2020-01-10] MEDS: Dexamethasone 4 MG/ML VIAL IVP SCH (08:21)
[2020-01-10] MEDS: Docusate Oral Soln 100 MG/10 ML UDC GTUBE SCH ×2 (08:21→20:04)
[2020-01-10] MEDS: Chlorhexidine Rinse 15 ML MOUTHWASH MM SCH ×2 (08:21→20:04)
[2020-01-10] MEDS: Furosemide 40 MG/4 ML VIAL IVP SCH ×2 (08:22→20:06)
[2020-01-10] MEDS: Pantoprazole 40 MG VIAL IVP SCH (08:22)
[2020-01-10] MEDS: Cefepime HCl 2,000 MG in Water for inj. (sterile) 20 ML IVP SCH ×3 (08:27→23:08)
[2020-01-10] MEDS: Insulin DETEMIR 100 UNIT/ML X5UNITS SQ SCH ×2 (08:28→20:43)
[2020-01-10] MEDS: Norepinephrine 4 MG/254 ML IV.SOLN IVC SCH (12:16)
[2020-01-10] MEDS: Doxycycline 100 MG in 0.9 % Sodium Chloride Mini Bag 100 ML IVPB SCH (12:19)
[2020-01-10] MEDS: Cisatracurium 200 MG in 0.9 % Sodium Chloride 180 ML IVC SCH (12:22)
[2020-01-10] MEDS ORDERED: 0.9 % Sodium Chloride 500 ML ONE (12:51)
[2020-01-10] MEDS ORDERED: *HR* Heparin 5,000 UNIT/ML VIAL ONE (12:57)
[2020-01-10] MEDS ORDERED: Insulin DETEMIR 100 UNIT/ML X5UNITS SQ ONE (14:00)
[2020-01-10] MEDS: Phenylephrine 50 MG in 0.9 % Sodium Chloride 250 ML IVC SCH (15:05)
[2020-01-10] MEDS: Remdesivir 100 MG in 0.9 % Sodium Chloride 230 ML IVPB SCH (17:10)
[2020-01-10] MEDS: Lactulose Oral Soln 20 GM/30 ML UDC PO SCH (20:05)
[2020-01-10] MEDS: 0.9 % Sodium Chloride 1,000 ML PRIME SCH (22:24)
[2020-01-10] MEDS: PrismaSATE BGK 4/2.5 5,000 ML CRRT SCH ×2 (22:24)
[2020-01-11] MEDS: Midazolam HCl 50 MG/100 ML IV.SOLN IVC SCH ×2 (01:25→12:37)
[2020-01-11] MEDS: PrismaSATE BGK 4/2.5 5,000 ML CRRT SCH ×14 (02:00→22:30)
[2020-01-11] MEDS: FentaNYL (PF) 2,500 MCG/50 ML IV.SOLN IVC SCH ×2 (03:30→17:42)
[2020-01-11] MEDS: Artificial Tears SOLN 15 ML BOTTLE BOTH EYES SCH ×6 (03:32→23:34)
[2020-01-11 03:55] LABS: ABG Base Excess 2 mEq/L (-2 to 3); ABG HCO3 30 mEq/L (21-27); ABG Oxygen Saturation 91 % (95-98); ABG PCO2 59 mmHg (35-45); ABG PH 7.32 pH Units (7.32-7.45); ABG PO2 69 mmHg (85-104); ABG TCO2 32 mEq/L (20-26); Blood Gas Modality AF; Blood Gas VT 480 cc
[2020-01-11] MEDS: Insulin LISPRO 300 UNITS/3 ML VIAL SQ SCH ×5 (04:26→20:51)
[2020-01-11] MEDS: Heparin 25,000UNIT/250ML 1/2NS 25,000 UNIT/250 ML IV.SOLN IVC SCH (04:28)
[2020-01-11 04:38] LABS: VBG Ionized Calcium 1.08 mmol/L (1.15-1.35)
[2020-01-11 04:43] LABS: Basophils % 0.2 %; Hemoglobin 11.4 g/dL (12.9-16.9); Mean Corpuscular Hemoglobin 28.6 pg (28.0-33.3); Nucleated Red Blood Cells 0.7 /100 WBC (0); Red Blood Count 3.99 M/mcL (4.19-5.50)
[2020-01-11 04:45] LABS: Hematocrit 37.8 % (37.5-50.1); Immature Granulocytes % 6.1 % (0-4); Immature Platelets 19.1 % (1.1-6.1); Lymphocytes # 1.2 K/mcL (0.6-4.6); Lymphocytes % 5.4 %; Mean Corpuscular HGB Conc 30.2 g/dL (31.6-35.5); Mean Corpuscular Volume 94.7 fL (83.0-100.0); Mean Platelet Volume 14.1 fL (9.4-12.4); Monocytes # 2.3 K/mcL (0.0-1.3); Monocytes % 10.2 %; Neutrophils # 17.9 K/mcL (1.6-8.9); Platelet Count 126 K/mcL (140-400); Red Cell Distribution Width 14.3 % (11.5-14.5); Segmented Neutrophils % 78.1 %; White Blood Count 22.9 K/mcL (4.3-11.1)
[2020-01-11 04:57] LABS: Basophils # 0.1 K/mcL (0.0-0.2)
[2020-01-11 05:01] LABS: Albumin 2.7 g/dL (3.5-5.7); Albumin/Globulin Ratio 0.9 (1.1-2.2); Bilirubin,Direct 0.2 mg/dL (0.0-0.2); Bilirubin,Indirect 0.4 mg/dL (0.0-1.0); Bilirubin,Total 0.6 mg/dL (0.3-1.0); Calcium 8.3 mg/dL (8.6-10.3); Magnesium 2.2 mg/dL (1.6-2.6); Phosphorous 2.8 mg/dL (2.7-4.5); Potassium 5.7 mEq/L (3.5-5.1); Total Protein 5.7 g/dL (6.4-8.9)
[2020-01-11 05:30] LABS: Anisocytosis 1+ (Not Present); Polychromasia 1+ (Not Present); Toxic Granulation Present (Not Present)
[2020-01-11 05:31] LABS: Platelet Estimate Normal (Normal)
[2020-01-11] MEDS: Calcium Gluconate 1gm/50mL 1 GM/50 ML BAG IVPB PRN (05:47)
[2020-01-11] MEDS: Cefepime HCl 2,000 MG in Water for inj. (sterile) 20 ML IVP SCH ×2 (07:21→15:42)
[2020-01-11] MEDS: Chlorhexidine Rinse 15 ML MOUTHWASH MM SCH ×2 (07:22→20:21)
[2020-01-11] MEDS: Dexamethasone 4 MG/ML VIAL IVP SCH (07:22)
[2020-01-11] MEDS: Docusate Oral Soln 100 MG/10 ML UDC GTUBE SCH ×2 (07:22→20:21)
[2020-01-11] MEDS: Pantoprazole 40 MG VIAL IVP SCH (07:24)
[2020-01-11] MEDS: Furosemide 40 MG/4 ML VIAL IVP SCH (07:24)
[2020-01-11] MEDS: Insulin DETEMIR 100 UNIT/ML X5UNITS SQ SCH ×2 (08:47→20:52)
[2020-01-11 09:32] LABS: VBG Ionized Calcium 1.12 mmol/L (1.15-1.35)
[2020-01-11] MEDS: Norepinephrine 4 MG/254 ML IV.SOLN IVC SCH (10:12)
[2020-01-11] MEDS: Budesonide/Formoterol 160/4.5 1 PUFF INH IH SCH ×2 (10:18→19:55)
[2020-01-11] MEDS: Phenylephrine 50 MG in 0.9 % Sodium Chloride 250 ML IVC SCH (15:37)
[2020-01-11] MEDS: Cisatracurium 200 MG in 0.9 % Sodium Chloride 180 ML IVC SCH (16:25)
[2020-01-11 16:40] LABS: Hematocrit 36.5 % (37.5-50.1)
[2020-01-11] MEDS: Remdesivir 100 MG in 0.9 % Sodium Chloride 230 ML IVPB SCH (17:41)
[2020-01-11] MEDS: Lactulose Oral Soln 20 GM/30 ML UDC PO SCH (20:21)
[2020-01-11] MEDS ORDERED: *HR* Heparin 5,000 UNIT/ML VIAL ONE ×2 (21:34→22:52)
[2020-01-11] MEDS: 0.9 % Sodium Chloride 1,000 ML PRIME SCH (22:30)
[2020-01-12] MEDS: Midazolam HCl 50 MG/100 ML IV.SOLN IVC SCH
[2020-01-12] MEDS: Insulin LISPRO 300 UNITS/3 ML VIAL SQ SCH ×3 (00:19→09:16)
[2020-01-12] MEDS: PrismaSATE BGK 4/2.5 5,000 ML CRRT SCH ×2 (02:00)
[2020-01-12] MEDS: Artificial Tears SOLN 15 ML BOTTLE BOTH EYES SCH ×2 (03:22→09:43)
[2020-01-12 04:02] LABS: ABG Base Excess 0 mEq/L (-2 to 3); ABG HCO3 28 mEq/L (21-27); ABG Oxygen Saturation 90 % (95-98); ABG PCO2 59 mmHg (35-45); ABG PH 7.28 pH Units (7.32-7.45); ABG PO2 67 mmHg (85-104); ABG TCO2 29 mEq/L (20-26); Blood Gas Modality ASSIST CONTROL; Blood Gas VT 480 cc
[2020-01-12 04:42] LABS: Hemoglobin 11.3 g/dL (12.9-16.9)
[2020-01-12 04:44] LABS: Hematocrit 36.8 % (37.5-50.1); Immature Platelets 22.1 % (1.1-6.1); Mean Corpuscular HGB Conc 30.7 g/dL (31.6-35.5); Mean Corpuscular Volume 94.4 fL (83.0-100.0); Mean Platelet Volume 13.7 fL (9.4-12.4); Nucleated Red Blood Cells 2.2 /100 WBC (0); Platelet Count 131 K/mcL (140-400); White Blood Count 28.6 K/mcL (4.3-11.1)
[2020-01-12 05:03] LABS: Albumin 2.7 g/dL (3.5-5.7); Albumin/Globulin Ratio 0.8 (1.1-2.2); Bilirubin,Direct 0.2 mg/dL (0.0-0.2); Bilirubin,Indirect 0.5 mg/dL (0.0-1.0); Bilirubin,Total 0.7 mg/dL (0.3-1.0); Globulin 3.2 g/dL (2.4-3.5); Globulin 3.3 g/dL (2.4-3.5); Magnesium 2.2 mg/dL (1.6-2.6); Phosphorous 4.3 mg/dL (2.7-4.5); Total Protein 5.9 g/dL (6.4-8.9)
[2020-01-12 05:08] LABS: Neutrophils # 23.5 K/mcL (1.6-8.9)
[2020-01-12 05:09] LABS: Large Platelets Present (Not Present); Platelet Estimate Normal (Normal); Toxic Granulation Present (Not Present)
[2020-01-12] MEDS: FentaNYL (PF) 2,500 MCG/50 ML IV.SOLN IVC SCH (06:20)
[2020-01-12] MEDS ORDERED: Dexamethasone Sodium Phos/PF 10 MG/ML VIAL IVP SCH (09:00)
[2020-01-12] MEDS: Docusate Oral Soln 100 MG/10 ML UDC GTUBE SCH (09:16)
[2020-01-12] MEDS: Insulin DETEMIR 100 UNIT/ML X5UNITS SQ SCH (09:17)
[2020-01-12] MEDS: Pantoprazole 40 MG VIAL IVP SCH (09:17)
[2020-01-12] MEDS: Chlorhexidine Rinse 15 ML MOUTHWASH MM SCH (09:43)
[2020-01-12] MEDS: Norepinephrine 4 MG/254 ML IV.SOLN IVC SCH (09:50)
[2020-01-12] MEDS ORDERED: *HR* FentaNYL (PF) 100 MCG/2 ML VIAL IVP PRN (09:54)
[2020-01-12] MEDS ORDERED: *HR* FentaNYL (PF) 100 MCG/2 ML VIAL IVP ONE (09:54)
[2020-01-12] MEDS ORDERED: Haloperidol Lactate 5 MG/ML VIAL IVP PRN (09:56)
[2020-01-12] MEDS ORDERED: *HR* LORazepam 2 MG/ML VIAL IVP PRN (09:57)
[2020-01-12] MEDS ORDERED: Glycopyrrolate 0.2 MG/ML VIAL IVP ONE (09:57)
[2020-01-12] MEDS ORDERED: *HR* LORazepam 2 MG/ML VIAL IVP ONE (09:59)
[2020-01-12 11:20] VITALS: BP 107/65
== END 2020-01-12 15:15 | disposition expired | DRG 207 ==
LOC: 3ANU 08:46 → EMEROOARM 08:46 → SUATTDRO 14:04 → 2NENU 16:08 → SUATTDRO 12-28 16:58
PROVIDERS: ADMIT Internal Medicine; ATTEND Pharmacist